=== PATIENT | male | born 1960 | race Caucasian/White ===

== ENCOUNTER 2016-09-14 09:10 | Inpatient (IN) | payer OTHER ==
[2016-09-14] MEDS ORDERED: SODIUM CHLORIDE 0.9% 1,000 ML IV STA (09:24)
[2016-09-14 09:37] LABS: Basophils # (A) 0.1 k/uL (0-0.2); Basophils % (A) 1 %; CHCM 34.5; Eosinophils # (A) 0.8 k/uL (0-0.7); Eosinophils % (A) 8 %; HCT 38.5 % (39.0-53.0); HDW 2.48; HGB 13.7 gm/dL (13.0-17.5); Luc # (Auto) 0.22; Luc % (Auto) 2; Lymphocytes # (A) 1.1 k/uL (1.0-4.8); Lymphocytes % (A) 11 %; MCH 32.1 pg (25.0-35.0); MCHC 35.6 g/dL (31.0-37.0); MCV 90.1 fL (80.0-100.0); Monocytes # (A) 0.7 k/uL (0-1.0); Monocytes % (A) 7 %; Neutrophils # (A) 7.1 k/uL (1.3-7.7); Neutrophils % (A) 71 %; RBC 4.27 m/uL (4.30-5.90); RDW 12.9 % (11.5-15.5); WBC (Perox) 9.36
--- NOTE | 2016-09-14 09:48 | ED ---
Chest Pain HPI - General Chief Complaint: Chest Pain Stated Complaint: chest pain yesterday Time Seen by Provider: 09/14/16 09:17 Source: patient, family, RN notes reviewed Mode of arrival: wheelchair Limitations: no limitations - History of Present Illness Initial Comments: This is a 55-year-old male with a benign past medical history other than a smoker who quit recently who complains of having an episode of sharp midsternal chest pain yesterday. The pain lasted about 10 minutes was associated with diaphoresis was very severe about 8/10 in severity he states it occurred while he was eating lunch. It went away and has not returned. He had no cough no fevers chills sweats nausea vomiting or other symptoms. He does have a family history of a brother and had heart disease around his age he denies any trauma or other symptoms. He was seen in outpatient clinic EKG was done he was sent here for evaluation. Patient did receive aspirin at the clinic. MD Complaint: chest pain - Related Data Home Medications Medication Instructions Recorded Confirmed Hydrochlorothiazide [Hydrodiuril] 25 mg PO DAILY 09/14/16 09/14/16 Nicotine 7Mg/24Hr Patch [Habitrol 1 patch TRANSDERM DAILY 09/14/16 09/14/16 7Mg/24Hr Patch] Allergies Allergy/AdvReac Type Severity Reaction Status Date / Time No Known Allergies Allergy Verified 09/14/16 09:30 Review of Systems ROS Statement: Those systems with pertinent positive or pertinent negative responses have been documented in the HPI. ROS Other: All systems not noted in ROS Statement are negative. EKG Findings - EKG Results: EKG: interpreted by ERMD (Sinus bradycardia rate of 57 a TX interval 174 QRS 108 QT/QTC of 428/416 sinus arrhythmia is present no acute change when compared to that done in the office.) Past Medical History Past Medical History: Hypertension History of Any Multi-Drug Resistant Organisms: None Reported Past Surgical History: Hernia Repair, Orthopedic Surgery Additional Past Surgical History / Comment(s): left ankle Past Psychological History: No Psychological Hx Reported Smoking Status: Former smoker Past Alcohol Use History: None Reported Past Drug Use History: None Reported General Exam - General Exam Comments Initial Comments: This is a well-developed well-nourished awake alert oriented 3 male Limitations: no limitations General appearance: alert, anxious Head exam: Present: atraumatic, normocephalic, normal inspection Eye exam: Present: normal appearance, PERRL, EOMI. Absent: scleral icterus, conjunctival injection, periorbital swelling ENT exam: Present: normal exam, mucous membranes moist Neck exam: Present: normal inspection. Absent: tenderness, meningismus, lymphadenopathy Respiratory exam: Present: normal lung sounds bilaterally. Absent: respiratory distress, wheezes, rales, rhonchi, stridor Cardiovascular Exam: Present: regular rate, normal rhythm, normal heart sounds. Absent: systolic murmur, diastolic murmur, rubs, gallop, clicks GI/Abdominal exam: Present: soft, normal bowel sounds. Absent: distended, tenderness, guarding, rebound, rigid Extremities exam: Present: normal inspection, full ROM, normal capillary refill. Absent: tenderness, pedal edema, joint swelling, calf tenderness Back exam: Present: normal inspection Neurological exam: Present: alert, oriented X3, CN II-XII intact Psychiatric exam: Present: normal affect, normal mood Skin exam: Present: warm, dry, intact, normal color. Absent: rash Course Vital Signs 09/14/16 09/14/16 09/14/16 09:11 10:08 11:08 Temperature 97.2 F L 97.2 F L Pulse Rate 53 L 50 L 51 L Respiratory 17 16 16 Rate Blood Pressure 139/76 131/77 110/73 O2 Sat by Pulse 98 98 96 Oximetry 09/14/16 13:07 Temperature 97.4 F L Pulse Rate 51 L Respiratory 18 Rate Blood Pressure 114/74 O2 Sat by Pulse 96 Oximetry Chest Pain MDM - MDM I did a long discussion with the patient family regarding findings initial x- ray looks suspicious for an infiltrate consistent with pneumonia altered do the d-dimer patient CAT scan emesis so evidence of a lung mass with mediastinal lymphadenopathy as well. Sindi effusion. Patient has not had any symptoms of cough phlegm production fevers chills or sweats. Patient will receive a dose of antibiotic. Patient will be admitted I did discuss case with the hospitalist. Disposition Clinical Impression: Atypical chest pain, Mass of right lung, Postobstructive pneumonia Disposition: ADMITTED IP TO THIS [facility] Condition: Stable Referrals: None,Stated [Primary Care Provider] - 1-2 days Decision Time: 11:40
[2016-09-14 09:52] LABS: ALT 23 U/L (21-72); AST 18 U/L (17-59); Alkaline Phosphatase 97 U/L (38-126); Amylase 49 U/L (30-110); Anion Gap 13 mmol/L; Blood Urea Nitrogen 25 mg/dL (9-20); Calcium 9.4 mg/dL (8.4-10.2); Carbon Dioxide 23 mmol/L (22-30); Chloride 104 mmol/L (98-107); Glucose 104 mg/dL (74-99); INR 1.1 (<1.1); Magnesium 1.9 mg/dL (1.6-2.3); Non-African American GFR(MDRD) >60 (>60 ml/min/1.73 sqM); Partial Thromboplastin Time 25.1 sec (22.0-30.0); Potassium 4.3 mmol/L (3.5-5.1); Prothrombin Time 10.7 sec (9.0-12.0); Sodium 140 mmol/L (137-145); Total Bilirubin 0.4 mg/dL (0.2-1.3); Total Protein 7.4 g/dL (6.3-8.2)
--- NOTE | 2016-09-14 09:57 | XR ---
EXAMINATION TYPE: XR chest 2V DATE OF EXAM: 09/14/2016 COMPARISON: None HISTORY: 55-year-old male with chest pain and diaphoresis TECHNIQUE: PA and lateral views FINDINGS: The cardiomediastinal silhouette, aorta, and pulmonary vasculature are within normal limits. There is consolidation within the right upper lobe marginated by the minor fissure. No pleural effusion. IMPRESSION: Right upper lobe pneumonia. Follow-up after treatment to ensure clearance.
[2016-09-14 10:14] LABS: Creatine Kinase MB 0.9 ng/mL (0.0-2.4); Troponin I 0.016 ng/mL (0.000-0.034)
[2016-09-14] MEDS ORDERED: RX INFO: IV CONTRAST WAS GIVEN 1 EACH MISC MISCELLANE PRN (10:36)
--- NOTE | 2016-09-14 11:33 | CT ---
EXAMINATION TYPE: CT angio chest DATE OF EXAM: 09/14/2016 COMPARISON: Chest x-ray same date HISTORY: Patient complains of episode of chest pain yesterday. CT DLP: 471 mGycm Automated exposure control for dose reduction was used. CONTRAST: CTA scan of the thorax is performed with IV Contrast, patient injected with 100 mL of Omnipaque 350, pulmonary embolism protocol. MIP images are created and reviewed. 3D reconstructed images are creat ed on an independent workstation and reviewed. FINDINGS: LUNGS: Extensive emphysematous changes present, postop change at the right upper lobe is greater in t he left, centrilobular emphysema is present bilaterally especially in the upper lobes. There is abnor mal increased soft tissue within the right upper lobe, suggestion of spiculated margins about the are a of consolidation, overall lesion measures approximately 9 cm in greatest AP dimension by 5.4 cm in transverse dimension extending along the major fissure and to the level of the visceral pleura and to wards the hilum. There is right hilar adenopathy, subcarinal adenopathy, mediastinal, aortopulmonary window adenopathy present. Small subpleural calcification in the left upper lobe compatible with gran uloma. No pleural effusion. AORTA: No additional significant abnormality is seen. MEDIASTINUM: There is inconsistent enhancement of the pulmonary artery and its branches. There were t echnical difficulties during the injection of contrast material. No convincing evidence of pulmonary embolism. There is pericardial effusion measuring approximately 1 cm in thickness posteriorly and in feriorly. OTHER: No adrenal mass in its visualized portions, the entire adrenal glands are not included. There is motion on the exam. There are coronary artery calcifications. 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 Pericardial ef fusion. Some limitations present. Additional findings above.
[2016-09-14] MEDS ORDERED: PNEUMONIA PROTOCOL UTILIZED 1 EACH MISC PO PRN (13:53)
[2016-09-14] MEDS: SODIUM CHLORIDE 0.9% 1,000 ML IV SCH (14:13)
[2016-09-14] MEDS ORDERED: IPRATROPIUM-ALBUTEROL 3 ML NEB INHALATION SCH (16:00)
[2016-09-14] MEDS ORDERED: AZITHROMYCIN 500 MG in SODIUM CHLORIDE 0.9% 250 ML IVPB SCH (16:00)
--- NOTE | 2016-09-14 16:33 | P.HPIM ---
History of Present Illness H&P Date: 09/14/16 Chief Complaint: Chest pain This is a 55-year-old gentleman who comes in to the hospital with acute onset of sharp chest pain in the midsternal region radiating to his back. Patient does not have any history of coronary disease in the past patient's only medical history is essentially hypertension Patient was noted to have an EKG in the emergency room it appears the patient has hypertensive disease and voltage criteria consistent with LVH Patient underwent a CT angiogram which showed a right-sided endobronchial lesion concerning for bronchogenic carcinoma Patient has lost about 20 pounds unintentionally in the recent times Patient has quit smoking about 4 months ago Patient has over [id number] smoking history No headaches blurry vision difficulty breathing cough abdominal pain and diarrhea is reported by the patient Review of Systems All systems: negative (Noted in HPI) Past Medical History Past Medical History: Hypertension, Osteoarthritis (OA) History of Any Multi-Drug Resistant Organisms: None Reported Past Surgical History: Hernia Repair, Orthopedic Surgery Additional Past Surgical History / Comment(s): left ankle plate and screws, R inguinal hernia repair. Past Anesthesia/Blood Transfusion Reactions: No Reported Reaction Smoking Status: Former smoker - Past Family History Father Family Medical History: Pneumonia Additional Family Medical History / Comment(s): Father was a WWII and had numerous injuries/surgeries from that. He at 76yrs from pneumonia Mother Family Medical History: Cancer Additional Family Medical History / Comment(s): Mother of some form of cancer when pt was 5 yrs old. Medications and Allergies Home Medications Medication Instructions Recorded Confirmed Type Hydrochlorothiazide [Hydrodiuril] 25 mg PO DAILY 09/14/16 09/14/16 History Nicotine 7Mg/24Hr Patch [Habitrol 1 patch TRANSDERM DAILY 09/14/16 09/14/16 History 7Mg/24Hr Patch] Allergies Allergy/AdvReac Type Severity Reaction Status Date / Time No Known Allergies Allergy Verified 09/14/16 09:30 Physical Exam Vitals: Vital Signs Temp Pulse Pulse Resp BP BP Pulse Ox 09/14/16 14:54 97.2 F L 55 L 18 117/70 96 09/14/16 14:07 97.9 F 50 L 18 114/74 97 09/14/16 13:07 97.4 F L 51 L 18 114/74 96 09/14/16 11:08 97.2 F L 51 L 16 110/73 96 09/14/16 10:08 50 L 16 131/77 98 09/14/16 09:11 97.2 F L 53 L 17 139/76 98 Intake and Output 09/14/16 09/14/16 09/14/16 06:59 14:59 22:59 Other: Weight 70.9 kg Patient Weight 09/15/16 06:59 Weight 70.9 kg Physical exam Gen. appearance oriented 3 in no distress Neck is supple no JVD Lungs diminished breath sounds no wheezing is appreciated hyperinflated chest Heart S1-S2 heard regular rate and rhythm no murmurs appreciated Abdomen is soft nontender no organomegaly bowel sounds are intact Neurologically cranial nerves II-12 grossly intact no focal motor or sensory deficits noted Skin no abnormalities appreciated Results CBC & Chem 7: 09/14/16 09:25 09/14/16 09:25 Labs: Abnormal Lab Results - Last 24 Hours (Table) 09/14/16 09/14/16 09/14/16 Range/Units 09:25 09:25 09:25 RBC 4.27 L (4.30-5.90) m/uL Hct 38.5 L (39.0-53.0) % Eosinophils # 0.8 H (0-0.7) k/uL D-Dimer (<0.60) mg/L FEU BUN 25 H (9-20) mg/dL Glucose 104 H (74-99) mg/dL Total Creatine Kinase 198 H (55-170) U/L 09/14/16 Range/Units 09:25 RBC (4.30-5.90) m/uL Hct (39.0-53.0) % Eosinophils # (0-0.7) k/uL D-Dimer 3.52 H (<0.60) mg/L FEU BUN (9-20) mg/dL Glucose (74-99) mg/dL Total Creatine Kinase (55-170) U/L Thrombosis Risk Factor Assmnt - Choose All That Apply Any of the Below Risk Factors Present?: Yes Each Factor Represents 1 point: Age 41-60 years Other Risk Factors: No Other congenital or acquired thrombophilia - If yes, enter type in comment: No Thrombosis Risk Factor Assessment Total Risk Factor Score: 1 Thrombosis Risk Factor Assessment Level: Low Risk Assessment and Plan Plan: Atypical chest pain #2 radiologic findings concerning for bronchogenic carcinoma #3 essential hypertension #4 long history of tobacco use #5 unintentional weight loss Plan We'll consult Dr. Smith evaluate the patient will hold the patient nothing by mouth from midnight in case a bronchoscopy with biopsy can be performed tomorrow or graft we'll discontinue the oncology consultation till biopsy and biopsy results are noted This could be done on an outpatient basis The case was discussed with the patient and his were bedside Patient is symptom-free at this time
[2016-09-14] MEDS ORDERED: IPRATROPIUM-ALBUTEROL 3 ML NEB INHALATION PRN (19:00)
[2016-09-14] MEDS: IPRATROPIUM-ALBUTEROL 3 ML NEB INHALATION SCH (20:28)
[2016-09-15] MEDS: SODIUM CHLORIDE 0.9% 1,000 ML IV SCH ×2 (00:14→12:29)
[2016-09-15 05:09] VITALS: RESP 18
[2016-09-15 06:46] LABS: INR 1.1 (<1.1); Partial Thromboplastin Time 25.7 sec (22.0-30.0)
[2016-09-15] MEDS: IPRATROPIUM-ALBUTEROL 3 ML NEB INHALATION SCH ×2 (08:27→11:22)
[2016-09-15] MEDS ORDERED: IV FLUID CONTINUATION 1,000 ML IV ONE (11:14)
[2016-09-15] MEDS ORDERED: LIDOCAINE 1% INJ 10MG/ML (20 ML MDV) ONE (11:20)
[2016-09-15] MEDS ORDERED: PROPOFOL 10 MG/ML 20 ML VIAL IV ONE (11:20)
[2016-09-15] MEDS ORDERED: LIDOCAINE 2% (PF) 20 MG/ML 10ML INHALATION ONE (11:50)
--- NOTE | 2016-09-15 12:43 | P.CNPUL ---
History of Present Illness Consult date: 09/15/16 Reason for consult: chest pain, lung mass, abnormal CXR/CT Chief complaint: Chest pain and abnormal chest x-ray and CAT scan History of present illness: Consult dated 09/15/2016 This a very pleasant 55-year-old male who doesn't really have a regular doctor. He gets hydrochlorothiazide from the clinic in [place] for his high blood pressure. Heavy smoker. Presented to the emergency department with complaints of chest pain. He was evaluated for cardiac disease was not thought to have cardiac disease and a chest x-ray and CAT scan show what appears to be a postobstructive pneumonia in the right upper lobe with significant hilar adenopathy and a bulky tumor in the right lung. Anyway, we went ahead and do bronchoscopy on him this morning. His significant mucosa irregularity in the right upper lobe. Had endobronchial biopsies brushes and washings of the right upper lobe. Hopefully we have a diagnosis. The patient may be discharged home today. Depends on his hospital. Of 90s doing reasonably well. Had no other complaints. Cough no nausea vomiting or diarrhea. Denies any shortness of breath as well. Appetite is good. Not losing any weight. No other complaints. No dysphasia. Review of Systems 12 point review of system is positive for chest pain. He denies other complaints. Past Medical History Past Medical History: Hypertension, Osteoarthritis (OA) History of Any Multi-Drug Resistant Organisms: None Reported Past Surgical History: Hernia Repair, Orthopedic Surgery Additional Past Surgical History / Comment(s): left ankle plate and screws, R inguinal hernia repair. Past Anesthesia/Blood Transfusion Reactions: No Reported Reaction Smoking Status: Former smoker - Past Family History Father Family Medical History: Pneumonia Additional Family Medical History / Comment(s): Father was a WWII and had numerous injuries/surgeries from that. He at 76yrs from pneumonia Mother Family Medical History: Cancer Additional Family Medical History / Comment(s): Mother of some form of cancer when pt was 5 yrs old. Medications and Allergies Home Medications Medication Instructions Recorded Confirmed Type Hydrochlorothiazide [Hydrodiuril] 25 mg PO DAILY 09/14/16 09/14/16 History Nicotine 7Mg/24Hr Patch [Habitrol 1 patch TRANSDERM DAILY 09/14/16 09/14/16 History 7Mg/24Hr Patch] Allergies Allergy/AdvReac Type Severity Reaction Status Date / Time No Known Allergies Allergy Verified 09/14/16 09:30 Physical Exam Osteopathic Statement: *. No significant issues noted on an osteopathic structural exam other than those noted in the History and Physical/Consult. Vitals: Vital Signs Temp Pulse Pulse Pulse Resp BP BP 09/15/16 11:30 97.1 F L 60 18 118/74 09/15/16 08:20 97.1 F L 60 16 118/74 09/15/16 04:00 96.9 F L 61 18 118/67 09/15/16 00:00 98.8 F 74 16 103/60 09/14/16 20:00 97 F L 61 18 124/70 09/14/16 14:54 97.2 F L 55 L 18 117/70 09/14/16 14:07 97.9 F 50 L 18 114/74 09/14/16 13:07 97.4 F L 51 L 18 114/74 Pulse Ox 09/15/16 11:30 95 09/15/16 08:20 95 09/15/16 04:00 96 09/15/16 00:00 94 L 09/14/16 20:00 09/14/16 14:54 96 09/14/16 14:07 97 09/14/16 13:07 96 Intake and Output 09/14/16 09/15/16 09/15/16 22:59 06:59 14:59 Intake Total 120 600 770 Balance 120 600 770 Intake: IV 650 Intake, IV Titration 600 Amount Sodium Chloride 0.9% 1, 600 000 ml @ 100 mls/hr IV . Q10H [facility] Rx#:[id number] Oral 120 120 Other: Voiding Method Toilet Toilet # Voids 2 1 2 # Bowel Movements 0 Weight 68.4 kg No acute distress, oriented 3. HEENT examination is grossly unremarkable. Mucous membranes are moist. No oral lesions. Neck supple. Full range of motion. No adenopathy thyromegaly or neck vein distention. Cardiovascular examination reveals regular rhythm rate. S1-S2 normal. No S3- S4 or murmur. Lungs reveal clear breath sounds. No wheezes or rhonchi. No crackles. Breath sounds are equal. Abdomen soft bowel sounds are heard. No masses. Extremities are intact. No cyanosis clubbing or edema. Skin without rash. Brief neurologic examination is nonfocal. Results - Laboratory Findings CBC and BMP: 09/14/16 09:25 09/14/16 09:25 PT/INR, D-dimer PT 11.0 sec (9.0-12.0) 09/15/16 05:35 INR 1.1 (<1.1) 09/15/16 05:35 D-Dimer 3.52 mg/L FEU (<0.60) H 09/14/16 09:25 Abnormal lab findings: Abnormal Labs 09/14/16 09/14/16 09/14/16 09:25 09:25 09:25 RBC 4.27 L Hct 38.5 L Eosinophils # 0.8 H D-Dimer BUN 25 H Glucose 104 H Total Creatine Kinase 198 H 09/14/16 09:25 RBC Hct Eosinophils # D-Dimer 3.52 H BUN Glucose Total Creatine Kinase - Diagnostic Findings Chest x-ray: image reviewed CT scan - chest: image reviewed (Chest x-ray CAT scan and lab work medications are all reviewed.) Assessment and Plan (1) Hypertension Status: Acute (2) Atypical chest pain Status: Acute (3) Mass of right lung Status: Acute (4) Postobstructive pneumonia Status: Acute Plan: Plan dated 09/15/2016 The patient underwent bronchoscopy today. He had mucosal irregularity and narrowing of the right upper lobe. We did endobronchial biopsies brushes and washings of the right upper lobe. Hopefully we made a diagnosis. He may be discharged home today. He will come back and see me next week in the office. Gave my one of my cards. Dr. Kay may discharge him home today. Additional recommendations suggestions are forthcoming. He may need pulmonary function testing and/or a PET scan if the bronchoscopy was nondiagnostic. Time with Patient: Greater than 30
[2016-09-15 13:13] VITALS: BP 114/51; PULSE 65; TEMP 97.5
[2016-09-15 14:24] LABS: RBC, Body Fluid 307500 /uL
--- NOTE | 2016-09-15 14:52 | XR ---
EXAMINATION TYPE: XR chest 2V DATE OF EXAM: 09/15/2016 COMPARISON: Prior CTA chest and chest x-ray yesterday HISTORY: Pneumonia progress study. TECHNIQUE: Frontal and lateral views of the chest are obtained. FINDINGS: Underlying emphysematous changes redemonstrated. There is persistent masslike consolidation inferior right upper lobe abutting fissure. There is no new focal air space opacity, pleural effusio n, or pneumothorax seen. The cardiac silhouette size is within normal limits. The osseous structur es are intact. IMPRESSION: Chronic emphysematous change with persistent right upper lobe masslike consolidation. No new infiltrate is seen. No significant change from prior studies. Suspect component of neoplasm and acute infection or pneumonia on CT review. Note is made of prominent inflammatory right axillary and anterior superior mediastinal level lymph nodes on CT review not discussed on CT report.
--- NOTE | 2016-09-15 16:27 | PCN ---
PROCEDURE PERFORMED: Bronchoscopy, air way examination, therapeutic lavage, BAL , endobronchial biopsies, right upper lobe, brushes right upper lobe, pool cytology right upper lobe. PERFORMED BY: Dr. Smith and Xiomy Vieyra. There was informed consent. There was universal time out. ( ) SUSPENDER MAKER provided IV unconscious sedation and general anesthesia. After the patient was adequately sedated and being fully monitored, the bronchoscope was inserted into the right nostril. It passed through the right nasopharynx into the oropharynx. The hypopharynx was identified. Anterior commissure, true cords, false cords, arytenoids, piriform sinuses, right and left vallecula, epiglottis all appeared normal. After topicalization, the bronchoscope was pushed through the glottic opening into the trachea. The trachea appeared normal. The tracheal reese was sharp. The left upper lobe proper and its two segments appeared normal. The lingula and its two segments also appeared normal. Likewise, the left lower lobe and its four segments were normal. On the right side after topicalization, the right middle lobe and its two segments, the right lower lobe and its five segments all appeared normal. The abnormalities were confined primarily to the entrance of the right upper lobe. The mucosa was ragged and irregular. It was a bit heaped. There was narrowing of the right upper lobe bronchus. There was narrowing all the way down to the apical posterior and anterior segments of the right upper lobe. Most of the disease was endobronchial. There was some mucosal friability and easy bleeding. Anyway we did brushes under fluoroscopic and direct visualization of the right upper lobe. Secondarily, we went ahead and did endobronchial biopsies to the right upper lobe. Finally, we had pool cytology right upper lobe. The patient tolerated the procedure well. There was some oozing. The bronchoscope was not removed until there was hemostasis. After there was adequate hemostasis, the bronchoscope was withdrawn. The patient will be recovered. No immediate complications. The patient will be sent back to his room once he is stable. The samples will be sent to the laboratory for analysis. MARGOTH
--- NOTE | 2016-09-15 16:51 | P.DS ---
Providers Date of admission: 09/14/16 13:53 Attending physician: Radha Araiza Consults: 09/14/16 13:53 Consult Physician Routine Consulting Provider: Omar Smith Consult Reason/Comments: Lung mass, postobstructive pneumonia Do you want consulting provider notified?: Yes Primary care physician: Stated None Hospital Course: This is a 55-year-old gentleman who comes in to the hospital with acute onset of sharp chest pain in the midsternal region radiating to his back. Patient does not have any history of coronary disease in the past patient's only medical history is essentially hypertension Patient was noted to have an EKG in the emergency room it appears the patient has hypertensive disease and voltage criteria consistent with LVH Patient underwent a CT angiogram which showed a right-sided endobronchial lesion concerning for bronchogenic carcinoma Patient has lost about 20 pounds unintentionally in the recent times Patient has quit smoking about 4 months ago Patient has over 81-acmt-[id number] smoking history No headaches blurry vision difficulty breathing cough abdominal pain and diarrhea is reported by the patient Physical exam Gen. appearance oriented 3 in no distress Neck is supple no JVD Lungs diminished breath sounds no wheezing is appreciated hyperinflated chest Heart S1-S2 heard regular rate and rhythm no murmurs appreciated Abdomen is soft nontender no organomegaly bowel sounds are intact Neurologically cranial nerves II-12 grossly intact no focal motor or sensory deficits noted Skin no abnormalities appreciated Plan: Atypical chest pain #2 radiologic findings concerning for bronchogenic carcinoma #3 essential hypertension #4 long history of tobacco use #5 unintentional weight loss bronchoscopy status post biopsy He is recommended to follow up with Dr. Smith on Monday and thereafter follow up with oncology for staging and treatment plans Social work has discussed with the patient regarding obtaining insurance home in a stable condition Patient Condition at Discharge: Stable Plan - Discharge Summary New Discharge Prescriptions: Continue Nicotine 7Mg/24Hr Patch [Habitrol] 1 patch TRANSDERM DAILY Hydrochlorothiazide [Hydrodiuril] 25 mg PO DAILY Discharge Medication List Hydrochlorothiazide [Hydrodiuril] 25 mg PO DAILY 09/14/16 [History] Nicotine 7Mg/24Hr Patch [Habitrol] 1 patch TRANSDERM DAILY 09/14/16 [History] Follow up Appointment(s)/Referral(s): Omar Smith DO [Doctor of Osteopathic Medicine] - 07/19/17 10:45 am None,Stated [Primary Care Provider] - 1-2 days Patient Instructions/Handouts: *Surgery [facility] - Bronchoscopy Discharge Instructions, Pneumonia (DC) Discharge Disposition: HOME SELF-CARE
== END 2016-09-15 14:54 | disposition home or self-care (01) | DRG 166 ==
LOC: EC 09:10 → 6SEL 13:53
PROVIDERS: ADMIT Internal Medicine; ATTEND Internal Medicine
PROC: 0B9C8ZX Drainage of Right Upper Lung Lobe, Via Natural or Artificial Opening Endoscopic, Diagnostic (ICD-10-PCS; principal; 2016-09-15 11:20)
PROC: 0BBC8ZX Excision of Right Upper Lung Lobe, Via Natural or Artificial Opening Endoscopic, Diagnostic (ICD-10-PCS; 2016-09-15 11:20)
DX: C34.11 Malignant neoplasm of upper lobe, right bronchus or lung (principal); J18.9 Pneumonia, unspecified organism; I11.9 Hypertensive heart disease without heart failure; R63.4 Abnormal weight loss; R07.89 Other chest pain; M19.90 Unspecified osteoarthritis, unspecified site; F12.90 Cannabis use, unspecified, uncomplicated; Z79.899 Other long term (current) drug therapy; Z87.891 Personal history of nicotine dependence; Z80.9 Family history of malignant neoplasm, unspecified
CPT/HCPCS: 31623; 31624; 31628; 36415; 71020; 71275; 80053; 82150; 82550; 82553; 83690; 83735; 83880; 84484; 85025; 85379; 85610; 85730; 87040; 87070; 87102; 87116; 87205; 87206; 87252; 87496; 87498; 87502; 87529; 87798; 88104; 88108; 88305; 88341; 88342; 89050; 93005; 99285

== ENCOUNTER → 2016-09-24 | Outpatient (CLI) | payer OTHER ==
--- NOTE | 2016-09-26 08:49 | PE ---
EXAMINATION TYPE: PET CT fusion skull to thigh DATE OF EXAM: 09/24/2016 COMPARISON: NONE HISTORY: Lung cancer initial staging study. Right lung Biopsy performed September 15. TECHNIQUE: Following the intravenous administration of 15.07 mCi of F-18 FDG, whole body images are performed from the skull base to the midthigh. Images are reviewed on the computer in the coronal, a xial, and sagittal planes. Reconstructed rotating images are created on independent workstation and reviewed on the computer. A localization and attenuation correction CT is performed in conjunction with the PET scan. SCAN: CTA chest from 10 days ago. FINDINGS: SKULL BASE AND NECK: There are abnormal bilateral supraclavicular lymph nodes, for reference left-si ded lymph node at level of hyoid bone measures 1.8 x 1.2 cm with adjacent abnormal lymph node, max SOLORZANO V is 5.08 on axial image 38. For reference there is right posterior cervical triangle lymph node susie uring 1.5 x 1.0 cm on axial image 26 with max SUV of 4.73. CHEST, MEDIASTINUM, AND HILAR REGION: There is abnormal uptake in masslike consolidation measuring roughly 5.0 x 3.6 cm on axial image 87 w ith max SUV of 13.14. Surrounding atelectatic change is seen along posterior peripheral margin. There are abnormal lymph nodes in the right hilum, subcarinal level, right paratracheal level, AP win kenzie, and prevascular space. For reference subcarinal lymph node measures 2.7 x 1.5 cm on axial image 94 with max SUV of 8.48. There are small to moderate-sized suspicious pericardial effusion without definitive abnormal hyperme tabolic uptake, area of increased uptake is felt to correspond to left ventricular wall. There are suspicious lymph nodes in bilateral axilla, for reference right axillary lymph node measure s 1.0 x 0.9 cm on axial image 70 with max SUV of 3.21. ABDOMEN AND PELVIS: There is abnormal hypermetabolic mass in region of pancreatic head which is parti ally calcified possible peritoneal metastatic deposit or lymph node, primary pancreatic lesion is not excluded, this measures roughly 2.7 x 2.6 cm on axial image 164 with max SUV of 9.03. I favor abnorm al lymph node. OSSEOUS STRUCTURES: There is suspicious abnormal hypermetabolic uptake in posterior left rib lesion n ear axial image 86, max SUV is 6.28 possible area of healing fracture as no definitive additional hy permetabolic or osseous lesions are clearly seen. OTHER CT: There is mild to moderate calcified plaque in bilateral carotid bulbs. There is advanced emphysematous change with bulla and blebs in both apices. There is small right-side d pleural effusion without abnormal hypermetabolic uptake. Coronary artery calcification is present which is noted marker for coronary artery disease. Pelvic phleboliths are seen. There is prominent fecal material in the rectum. There is moderate calcified plaque of the abdominal aorta extending into branch vessels with slight e ctasia, no greater than the 3 cm aneurysmal change is seen. There is multilevel spurring in the spine . There is facet arthropathy lower lumbar levels. IMPRESSION: Metastatic lung carcinoma is confirmed as detailed above. TNM STAGING T2,N3,M1 AJCC STAGING IV
== END | disposition home or self-care (01) ==
LOC: RADPETMAIN 07:47
PROVIDERS: ATTEND Internal Medicine Critical Care Medicine
DX: C34.90 Malignant neoplasm of unspecified part of unspecified bronchus or lung (principal)
CPT/HCPCS: 78815; A9552

== ENCOUNTER 2016-09-27 21:15 | Emergency (ER) | payer OTHER ==
[2016-09-27] MEDS ORDERED: ALBUTEROL NEBULIZED 2.5 MG/3 ML INHALATION STA ×2 (21:44→22:06)
[2016-09-27 21:52] LABS: Basophils # (A) 0.1 k/uL (0-0.2); Basophils % (A) 1 %; CH 31.5; CHCM 34.1; Eosinophils # (A) 0.7 k/uL (0-0.7); Eosinophils % (A) 6 %; HCT 36.9 % (39.0-53.0); HDW 2.35; HGB 12.6 gm/dL (13.0-17.5); Luc # (Auto) 0.26; Luc % (Auto) 2; Lymphocytes # (A) 1.3 k/uL (1.0-4.8); Lymphocytes % (A) 11 %; MCH 31.8 pg (25.0-35.0); MCHC 34.2 g/dL (31.0-37.0); Mean Platelet Volume 7.7; Monocytes % (A) 9 %; Neutrophils # (A) 7.9 k/uL (1.3-7.7); Neutrophils % (A) 71 %; RBC 3.97 m/uL (4.30-5.90); RDW 13.2 % (11.5-15.5); WBC 11.2 k/uL (3.8-10.6); WBC (Perox) 11.27
[2016-09-27 22:00] LABS: INR 1.1 (<1.2); Partial Thromboplastin Time 23.1 sec (22.0-30.0); Prothrombin Time 10.8 sec (9.0-12.0)
[2016-09-27 22:02] LABS: ALT 27 U/L (21-72); AST 18 U/L (17-59); Alkaline Phosphatase 96 U/L (38-126); Anion Gap 9 mmol/L; Blood Urea Nitrogen 27 mg/dL (9-20); Calcium 9.1 mg/dL (8.4-10.2); Carbon Dioxide 25 mmol/L (22-30); Chloride 104 mmol/L (98-107); Glucose 94 mg/dL (74-99); Magnesium 1.9 mg/dL (1.6-2.3); Non-African American GFR(MDRD) >60 (>60 ml/min/1.73 sqM); Potassium 4.2 mmol/L (3.5-5.1); Sodium 138 mmol/L (137-145); Total Bilirubin 0.3 mg/dL (0.2-1.3); Total Protein 6.8 g/dL (6.3-8.2)
[2016-09-27] MEDS ORDERED: ALBUTEROL NEB (CONC) 2.5 MG/0.5 ML INHALATION ONE (22:15)
[2016-09-27 22:26] LABS: Troponin I 0.074 ng/mL (0.000-0.034)
[2016-09-27 22:41] LABS: VBG PH 7.46 (7.31-7.41)
[2016-09-27 23:10] VITALS: RESP 22; TEMP 99
--- NOTE | 2016-09-27 23:58 | ED ---
General Adult HPI - General Chief complaint: Shortness of Breath Stated complaint: MONTY Time Seen by Provider: 09/27/16 21:53 Source: patient, family, RN notes reviewed Mode of arrival: ambulatory Limitations: no limitations - History of Present Illness Initial comments: 55-year-old male presents with a three-day history of worsening cough and difficulty breathing. Patient also complains of some right-sided chest pain. Patient was evaluated approximately 2 weeks ago with concern for post- instructive pneumonia, and evaluated for lung mass. In the interval time he received an echo and PET scan. Patient and his family believe that the ultrasound of his heart showed a pericardial effusion. There are unaware of the results of the PET scan or the formal diagnosis. Patient has past medical history of hypertension, long-standing tobacco user who recently quit. Denies fever or chills. Denies productive cough. Denies nausea vomiting or diarrhea - Related Data Home Medications Medication Instructions Recorded Confirmed Hydrochlorothiazide [Hydrodiuril] 25 mg PO DAILY 09/14/16 09/27/16 Allergies Allergy/AdvReac Type Severity Reaction Status Date / Time No Known Allergies Allergy Verified 09/27/16 21:26 Review of Systems ROS Statement: Those systems with pertinent positive or pertinent negative responses have been documented in the HPI. ROS Other: All systems not noted in ROS Statement are negative. Respiratory: Reports: cough, dyspnea Cardiovascular: Reports: chest pain Past Medical History Past Medical History: Cancer, Hypertension, Osteoarthritis (OA) Additional Past Medical History / Comment(s): non small cell lung cancer, right upper lobe. History of Any Multi-Drug Resistant Organisms: None Reported Past Surgical History: Hernia Repair, Orthopedic Surgery Additional Past Surgical History / Comment(s): left ankle plate and screws, R inguinal hernia repair. Past Anesthesia/Blood Transfusion Reactions: No Reported Reaction Past Psychological History: No Psychological Hx Reported Smoking Status: Former smoker Past Alcohol Use History: None Reported Past Drug Use History: Marijuana - Past Family History Father Family Medical History: Pneumonia Additional Family Medical History / Comment(s): Father was a WWII and had numerous injuries/surgeries from that. He at 76yrs from pneumonia Mother Family Medical History: Cancer Additional Family Medical History / Comment(s): Mother of some form of cancer when pt was 5 yrs old. General Exam Limitations: no limitations General appearance: alert, in no apparent distress Head exam: Present: atraumatic, normocephalic Eye exam: Present: normal appearance, PERRL ENT exam: Present: normal exam, mucous membranes moist Neck exam: Present: normal inspection, other (No JVD) Respiratory exam: Present: wheezes. Absent: respiratory distress Cardiovascular Exam: Present: regular rate, normal rhythm, other (Faint heart sounds). Absent: JVD GI/Abdominal exam: Present: soft. Absent: distended, tenderness, guarding Extremities exam: Present: normal inspection, normal capillary refill. Absent: pedal edema, calf tenderness Neurological exam: Present: alert, oriented X3. Absent: motor sensory deficit Psychiatric exam: Present: normal affect, normal mood Skin exam: Present: warm, dry Course Vital Signs 09/27/16 09/27/16 09/27/16 21:19 21:29 22:17 Temperature 100.0 F H Pulse Rate 68 58 L Respiratory 26 H 18 Rate Blood Pressure 127/68 O2 Sat by Pulse 97 Oximetry 09/27/16 09/27/16 09/27/16 22:31 23:07 23:08 Temperature 99.0 F Pulse Rate 60 65 67 Respiratory 22 Rate Blood Pressure 128/70 113/54 O2 Sat by Pulse 98 98 Oximetry - Reevaluation(s) Reevaluation #1: 09/27/16 23:51 Reevaluation the patient is feeling better after nebulized albuterol. EKG Findings - EKG Comments: EKG Findings:: EKG shows normal sinus rhythm, ventricular rate of 62, MA interval 166 QRS duration 104, QTC is [address] segment elevation or depression , no T-wave abnormality Medical Decision Making - Medical Decision Making 55-year-old with significant tobacco history and recent diagnosis of metastatic lung cancer presenting with 3 days of worsening shortness of breath. Patient is accompanied by family member, they are unaware of the complete diagnosis at this time. The patient has had a PET scan and an ultrasound of his heart in the last several days. Echo is reviewed, does show moderate to large pericardial effusion, with no tamponade physiology. I did review the PET scan results which showed widespread disease including uptake in the left ventricle wall. This does explain the patient's elevated troponin. In the setting of right sided chest pain over the patient's lesion and a nonischemic EKG this will not be pursued. Patient's x-ray redemonstrates right upper lobe lesion. Patient's vital signs remained stable in the emergency department. He feels better after nebulized albuterol. Patient has an appointment with his oncologist tomorrow at 7 AM. This be the first appointment. I discussed the test results and presentation with on-call oncology and they agree with discharge for close outpatient follow-up. Patient and his family member are agreeable with discharge. Diagnosis: Shortness of breath, chest pain related to lung cancer. - Lab Data Result diagrams: 09/27/16 21:34 09/27/16 21:34 Lab Results 09/27/16 09/27/16 09/27/16 Range/Units 21:34 21:34 21:34 WBC 11.2 H (3.8-10.6) k/uL RBC 3.97 L (4.30-5.90) m/uL Hgb 12.6 L (13.0-17.5) gm/dL Hct 36.9 L (39.0-53.0) % MCV 93.0 (80.0-100.0) fL MCH 31.8 (25.0-35.0) pg MCHC 34.2 (31.0-37.0) g/dL RDW 13.2 (11.5-15.5) % Plt Count 225 (150-450) k/uL Neutrophils % 71 % Lymphocytes % 11 % Monocytes % 9 % Eosinophils % 6 % Basophils % 1 % Neutrophils # 7.9 H (1.3-7.7) k/uL Lymphocytes # 1.3 (1.0-4.8) k/uL Monocytes # 1.0 (0-1.0) k/uL Eosinophils # 0.7 (0-0.7) k/uL Basophils # 0.1 (0-0.2) k/uL PT (9.0-12.0) sec INR (<1.2) APTT (22.0-30.0) sec VBG pH (7.31-7.41) VBG pCO2 (37-51) mmHg VBG HCO3 (24-28) mmol/L Sodium 138 (137-145) mmol/L Potassium 4.2 (3.5-5.1) mmol/L Chloride 104 (98-107) mmol/L Carbon Dioxide 25 (22-30) mmol/L Anion Gap 9 mmol/L BUN 27 H (9-20) mg/dL Creatinine 1.02 (0.66-1.25) mg/dL Est GFR (MDRD) Af Amer >60 (>60 ml/min/1.73 sqM) Est GFR (MDRD) Non-Af >60 (>60 ml/min/1.73 sqM) Glucose 94 (74-99) mg/dL Calcium 9.1 (8.4-10.2) mg/dL Magnesium 1.9 (1.6-2.3) mg/dL Total Bilirubin 0.3 (0.2-1.3) mg/dL AST 18 (17-59) U/L ALT 27 (21-72) U/L Alkaline Phosphatase 96 (38-126) U/L Total Creatine Kinase 83 (55-170) U/L CK-MB (CK-2) 1.0 (0.0-2.4) ng/mL CK-MB (CK-2) Rel Index 1.2 Troponin I 0.074 H* (0.000-0.034) ng/mL NT-Pro-B Natriuret Pep pg/mL Total Protein 6.8 (6.3-8.2) g/dL Albumin 3.9 (3.5-5.0) g/dL 09/27/16 09/27/16 09/27/16 Range/Units 21:34 21:34 22:33 WBC (3.8-10.6) k/uL RBC (4.30-5.90) m/uL Hgb (13.0-17.5) gm/dL Hct (39.0-53.0) % MCV (80.0-100.0) fL MCH (25.0-35.0) pg MCHC (31.0-37.0) g/dL RDW (11.5-15.5) % Plt Count (150-450) k/uL Neutrophils % % Lymphocytes % % Monocytes % % Eosinophils % % Basophils % % Neutrophils # (1.3-7.7) k/uL Lymphocytes # (1.0-4.8) k/uL Monocytes # (0-1.0) k/uL Eosinophils # (0-0.7) k/uL Basophils # (0-0.2) k/uL PT 10.8 (9.0-12.0) sec INR 1.1 (<1.2) APTT 23.1 (22.0-30.0) sec VBG pH 7.46 H (7.31-7.41) VBG pCO2 33 L (37-51) mmHg VBG HCO3 23 L (24-28) mmol/L Sodium (137-145) mmol/L Potassium (3.5-5.1) mmol/L Chloride (98-107) mmol/L Carbon Dioxide (22-30) mmol/L Anion Gap mmol/L BUN (9-20) mg/dL Creatinine (0.66-1.25) mg/dL Est GFR (MDRD) Af Amer (>60 ml/min/1.73 sqM) Est GFR (MDRD) Non-Af (>60 ml/min/1.73 sqM) Glucose (74-99) mg/dL Calcium (8.4-10.2) mg/dL Magnesium (1.6-2.3) mg/dL Total Bilirubin (0.2-1.3) mg/dL AST (17-59) U/L ALT (21-72) U/L Alkaline Phosphatase (38-126) U/L Total Creatine Kinase (55-170) U/L CK-MB (CK-2) (0.0-2.4) ng/mL CK-MB (CK-2) Rel Index Troponin I (0.000-0.034) ng/mL NT-Pro-B Natriuret Pep 206 pg/mL Total Protein (6.3-8.2) g/dL Albumin (3.5-5.0) g/dL Disposition Clinical Impression: Lung mass, Atypical chest pain Disposition: HOME SELF-CARE Condition: Good Instructions: Dyspnea (ED) Referrals: Omar Smith DO [Primary Care Provider] - 1-2 days Bennett Lee MD [STAFF PHYSICIAN] - 1-2 days Time of Disposition: 00:00
--- NOTE | 2016-09-28 00:04 | XR ---
EXAM: XR Chest, 2 Views CLINICAL HISTORY: Difficulty breathing. TECHNIQUE: Frontal and lateral views of the chest. COMPARISON: Chest radiograph dated 09/15/16. FINDINGS: Lungs: Again seen is a dense opacity at the right upper lobe, measuring approximately 9 cm TV by 5.5 cm AP by 3 cm SI. The lungs are otherwise well-expanded to hyperinflated. Pleural space: No significant pleural effusion. No pneumothorax. Heart: Normal cardiac silhouette. Mediastinum: Unremarkable. Bones/joints: Chronic left clavicular deformity. IMPRESSION: No significant interval change.
[2016-09-28 00:40] VITALS: BP 111/59; PULSE 59
== END 2016-09-28 00:48 | disposition home or self-care (01) ==
LOC: EC 21:15
DX: R07.89 Other chest pain (principal); R91.8 Other nonspecific abnormal finding of lung field; R06.02 Shortness of breath; R05 Cough; I10 Essential (primary) hypertension; Z85.118 Personal history of other malignant neoplasm of bronchus and lung; Z87.891 Personal history of nicotine dependence; Z79.899 Other long term (current) drug therapy
CPT/HCPCS: 36415; 71020; 80053; 82550; 82553; 82803; 83735; 83880; 84484; 85025; 85610; 85730; 93005; 94640; 99285

== ENCOUNTER → 2016-09-27 | Outpatient (CLI) | payer SELFPAY ==
--- NOTE | 2016-09-27 09:27 | ECHOF ---
Referral Reason:I25.11 cororany artery dis MEASUREMENTS -------- HEIGHT: 182.9 cm WEIGHT: 72.6 kg BP: 121/60 IVSd: 0.9 cm (0.6 - 1.1) LVIDd: 5.0 cm (3.9 - 5.3) LVPWd: 1.3 cm (0.6 - 1.1) IVSs: 1.5 cm LVIDs: 3.0 cm LVPWs: 1.7 cm LAESV Index (A-L): 29.45 ml/m Ao Diam: 3.7 cm (2.0 - 3.7) AV Cusp: 2.5 cm (1.5 - 2.6) LA Diam: 2.5 cm (2.7 - 3.8) MV EXCURSION: 29.154 mm (> 18.000) MV EF SLOPE: 106 mm/s (70 - 150) EPSS: 0.3 cm MV E Elbert: 0.94 m/s MV DecT: 297 ms MV A Elbert: 0.91 m/s MV E/A Ratio: 1.04 RAP: 5.00 mmHg RVSP: 33.[address] Xiomy Vieyra on 09/27/16 at 9:30 am. FINDINGS -------- Sinus rhythm. This was a technically good study. Left ventricular wall thickness is normal. Overall left ventricular systolic function is low-normal with, an EF between 50 - 55 %. The right ventricle is normal in size and function. LA is midly dilated 29-33ml/m2. The right atrium is normal in size. Aortic valve is trileaflet and is mildly thickened. The mitral valve leaflets are mildly thickened. Mild mitral annular calcification present. [id number] mitral regurgitation is present. There is moderate mitral valve prolapse. Mild tricuspid regurgitation present. The right ventricular systolic pressure, as measured by Doppler, is 33.83mmHg. Pulmonic valve appears structurally normal. The aortic root size is normal. There is no evidence of cardiac tamponade. Moderate-Large global pericardial effusion Contacted Dr. Xiomy Vieyra on 09/27/16 at 0930 CONCLUSIONS -------- 1. Sinus rhythm. 2. Mild mitral annular calcification present. 3. [id number] mitral regurgitation is present. 4. There is moderate mitral valve prolapse. 5. Mild tricuspid regurgitation present. 6. The right ventricular systolic pressure, as measured by Doppler, is 33.83mmHg. 7. Pulmonic valve appears structurally normal. 8. The aortic root size is normal. 9. There is no evidence of cardiac tamponade. 10. Moderate-Large global pericardial effusion 11. Contacted Dr. Xiomy Vieyra on 09/27/16 at 0930 12. This was a technically good study. 13. Left ventricular wall thickness is normal. 14. Overall left ventricular systolic function is low-normal with, an EF between 50 - 55 %. 15. The right ventricle is normal in size and function. 16. LA is midly dilated 29-33ml/m2. 17. The right atrium is normal in size. 18. Aortic valve is trileaflet and is mildly thickened. 19. The mitral valve leaflets are mildly thickened. BIT TAPPER: Romy Long RDCS
== END | disposition home or self-care (01) ==
LOC: RADECHMAIN 08:26
PROVIDERS: ATTEND Internal Medicine Critical Care Medicine
DX: I08.1 Rheumatic disorders of both mitral and tricuspid valves (principal); I31.3 Pericardial effusion (noninflammatory); I25.10 Atherosclerotic heart disease of native coronary artery without angina pectoris
CPT/HCPCS: 93306

== ENCOUNTER → 2016-09-28 | Outpatient (CLI) | payer SELFPAY ==
--- NOTE | 2016-09-28 13:17 | MR ---
"PRE AND POSTCONTRAST ENHANCED MRI OF THE BRAIN: CLINICAL HISTORY: Lung carcinoma with headaches CONTRAST: 15 ML Multihance Between 8 and 10 rim-enhancing lesions left cerebral hemisphere with a dominant mass within the high left frontal lobe which measures 2.9 x 2.3 cm. There is a large area of surrounding vasogenic edema. Mild mass effect is noted upon the left lateral ventricle. There is minimal midline shift from left-t o-right of approximately 3 mm. No evidence for subfalcine herniation at this time. Additional smaller lesions identified within the left frontal left parietal and left temporal regions all measure less than 8 mm. Approximately 3 rim-enhancing lesions are seen within the right cerebral hemisphere measur ing less than 5 mm. Lesions are within the right temporal and right frontal lobe. Several of the smal ler lesions demonstrate mild amount of surrounding vasogenic edema. No evidence for hemorrhagic transformation. No evidence for extra-axial collection. No evidence for acute edema The paranasal sinuses and mastoid air cells are well-aerated. IMPRESSION: 1. Multiple bilateral left much greater than right rim-enhancing lesions with a dominant lesion withi n the high left frontal lobe. There is a large area of surrounding vasogenic edema as well as mass ef fect upon the left lateral ventricle. Mild midline shift from left to right of 3 mm without evidence for subfalcine herniation. A Red message has been communicated to Bennett Lee MD via the [employer] | Critical Result sy stem on 09/28/2016 1:15 PM, Message ID [id number]."
== END | disposition home or self-care (01) ==
LOC: RADMRIMAIN 12:06
PROVIDERS: ATTEND Internal Medicine Hematology & Oncology
DX: G93.6 Cerebral edema (principal); G93.89 Other specified disorders of brain; C34.90 Malignant neoplasm of unspecified part of unspecified bronchus or lung; R41.0 Disorientation, unspecified
CPT/HCPCS: 70553; A9577

== ENCOUNTER 2016-10-14 09:54 | Inpatient (IN) | payer OTHER ==
[2016-10-14] MEDS ORDERED: SODIUM CHLORIDE 0.9% 500 ML IV STA (10:07)
[2016-10-14] MEDS ORDERED: DILTIAZEM 5 MG/ML 5 ML VIAL IVP STA (10:07)
[2016-10-14] MEDS ORDERED: SODIUM CHLORIDE 0.9% 1,000 ML IV STA (10:07)
[2016-10-14] MEDS ORDERED: DILTIAZEM 125 MG in SODIUM CHLORIDE 0.9% 100 ML IV ONE (10:07)
[2016-10-14 10:23] LABS: Basophils % (A) 0 %; CH 30.7; CHCM 33.5; Eosinophils # (A) 0.4 k/uL (0-0.7); Eosinophils % (A) 2 %; HCT 37.2 % (39.0-53.0); HDW 2.28; HGB 12.7 gm/dL (13.0-17.5); Luc % (Auto) 1; Lymphocytes # (A) 0.6 k/uL (1.0-4.8); Lymphocytes % (A) 3 %; MCH 31.4 pg (25.0-35.0); MCHC 34.2 g/dL (31.0-37.0); Mean Platelet Volume 7.6; Monocytes # (A) 0.5 k/uL (0-1.0); Monocytes % (A) 3 %; Neutrophils # (A) 18.7 k/uL (1.3-7.7); Neutrophils % (A) 92 %; RBC 4.05 m/uL (4.30-5.90); RDW 14.2 % (11.5-15.5); WBC 20.2 k/uL (3.8-10.6); WBC (Perox) 20.41
[2016-10-14 10:42] LABS: INR 1.2 (<1.2); Partial Thromboplastin Time 23.3 sec (22.0-30.0); Prothrombin Time 11.9 sec (9.0-12.0)
[2016-10-14 10:48] LABS: ALT 223 U/L (21-72); AST 151 U/L (17-59); Alkaline Phosphatase 102 U/L (38-126); Anion Gap 9 mmol/L; Blood Urea Nitrogen 37 mg/dL (9-20); Calcium 8.6 mg/dL (8.4-10.2); Carbon Dioxide 26 mmol/L (22-30); Chloride 101 mmol/L (98-107); Glucose 118 mg/dL (74-99); Magnesium 1.9 mg/dL (1.6-2.3); Non-African American GFR(MDRD) >60 (>60 ml/min/1.73 sqM); Phosphorous 3.3 mg/dL (2.5-4.5); Potassium 3.9 mmol/L (3.5-5.1); Sodium 136 mmol/L (137-145); Total Bilirubin 0.4 mg/dL (0.2-1.3); Total Protein 5.9 g/dL (6.3-8.2)
--- NOTE | 2016-10-14 10:57 | XR ---
EXAMINATION TYPE: XR chest 2V DATE OF EXAM: 10/14/2016 COMPARISON: Chest x-ray September 27, 2016. PET CT September 24, 2016. HISTORY: History of lung cancer presents with chest pain today. TECHNIQUE: Frontal and lateral views of the chest are obtained. FINDINGS: There is underlying emphysematous change redemonstrated seen better on recent PET/CT in th e lung apices. There is persistent masslike consolidation right suprahilar level corresponds to neopl asm and associated atelectasis and/or infiltrate. There is no new focal airspace opacity or pneumotho rax seen bilaterally. There is persistent tiny right pleural effusion and possible tiny new left pleu ral effusion. Chronic thickening of right paratracheal stripe corresponds to adenopathy on PET/CT. Th e cardiac silhouette size is mildly enlarged with coarse correlates with small to moderate-sized merlyn cardial effusion on PET/CT. From right-sided volume loss with tracheal shift is redemonstrated. Old f racture deformity mid left clavicle is redemonstrated. IMPRESSION: Chronic changes as detailed above without suspicious new acute pulmonary process identif ied
[2016-10-14 11:05] LABS: Creatine Kinase MB 4.7 ng/mL (0.0-2.4); Troponin I 0.293 ng/mL (0.000-0.034)
--- NOTE | 2016-10-14 11:05 | ED ---
General Adult HPI - General Chief complaint: Chest Pain Stated complaint: Chest Pain Time Seen by Provider: 10/14/16 10:06 Source: patient, RN notes reviewed, old records reviewed Mode of arrival: ambulatory Limitations: no limitations - History of Present Illness Initial comments: This is a 55-year-old male to the ER for evaluation. This patient presents today for evaluation regarding weakness, dizziness, left-sided chest pain. Patient's complex medical history including cancer and undergoing radiation for metastasis, patient has right-sided lung cancer. Patient was admitted shortness of breath. He does watch for fevers states he has not known her noticed that he has a fever was low diaphoretic earlier today. Near syncopal. Patient is also complaining of chest pain. No nausea vomiting. No recent travel history. No recent change in medications - Related Data Home Medications Medication Instructions Recorded Confirmed Hydrochlorothiazide [Hydrodiuril] 25 mg PO DAILY 09/14/16 10/14/16 ALPRAZolam [Xanax] 0.25 mg PO BID 10/14/16 10/14/16 Albuterol Inhaler [Ventolin Hfa 2 puff PO Q4H PRN 10/14/16 10/14/16 Inhaler] Dexamethasone [Hexadrol] 4 mg PO TID 10/14/16 10/14/16 Omeprazole [PriLOSEC] 20 mg PO DAILY 10/14/16 10/14/16 Allergies Allergy/AdvReac Type Severity Reaction Status Date / Time No Known Allergies Allergy Verified 10/14/16 10:48 Review of Systems ROS Statement: Those systems with pertinent positive or pertinent negative responses have been documented in the HPI. ROS Other: All systems not noted in ROS Statement are negative. Past Medical History Past Medical History: Cancer, Hypertension, Osteoarthritis (OA) Additional Past Medical History / Comment(s): non small cell lung cancer, right upper lobe. History of Any Multi-Drug Resistant Organisms: None Reported Past Surgical History: Hernia Repair, Orthopedic Surgery Additional Past Surgical History / Comment(s): left ankle plate and screws, R inguinal hernia repair. Past Anesthesia/Blood Transfusion Reactions: No Reported Reaction Past Psychological History: No Psychological Hx Reported Smoking Status: Former smoker Past Alcohol Use History: None Reported Past Drug Use History: Marijuana - Past Family History Father Family Medical History: Pneumonia Additional Family Medical History / Comment(s): Father was a [employer] and had numerous injuries/surgeries from that. He at 76yrs from pneumonia Mother Family Medical History: Cancer Additional Family Medical History / Comment(s): Mother of some form of cancer when pt was 5 yrs old. General Exam Limitations: no limitations General appearance: alert, in no apparent distress, anxious Head exam: Present: atraumatic, normocephalic, normal inspection Eye exam: Present: normal appearance, PERRL, EOMI. Absent: scleral icterus, conjunctival injection, periorbital swelling ENT exam: Present: normal exam, mucous membranes moist Neck exam: Present: normal inspection. Absent: tenderness, meningismus, lymphadenopathy Respiratory exam: Present: normal lung sounds bilaterally. Absent: respiratory distress, wheezes, rales, rhonchi, stridor Cardiovascular Exam: Present: tachycardia, irregular rhythm, normal heart sounds. Absent: systolic murmur, diastolic murmur, rubs, gallop, clicks GI/Abdominal exam: Present: soft, normal bowel sounds. Absent: distended, tenderness, guarding, rebound, rigid Extremities exam: Present: normal inspection, full ROM, normal capillary refill. Absent: tenderness, pedal edema, joint swelling, calf tenderness Back exam: Present: normal inspection Neurological exam: Present: alert, oriented X3, CN II-XII intact Psychiatric exam: Present: normal affect, normal mood Skin exam: Present: warm, dry, intact, normal color. Absent: rash Course Vital Signs 10/14/16 10/14/16 10/14/16 10:03 10:38 11:09 Pulse Rate 113 H 98 114 H Respiratory 18 Rate Blood Pressure 166/87 126/71 110/73 O2 Sat by Pulse 97 96 94 L Oximetry 10/14/16 10/14/16 10/14/16 11:38 12:35 13:56 Pulse Rate 114 H 42 L 44 L Respiratory 18 Rate Blood Pressure 126/72 100/66 116/76 O2 Sat by Pulse 96 93 L 97 Oximetry - Reevaluation(s) Reevaluation #1: 10/14/16 12:21 Patient's medical record is reviewed, no prior history of A. fib Reevaluation #2: 10/14/16 12:22 Patient's chest pain is improving, heart rate is improving Reevaluation #3: 10/14/16 14:26 Patient Chuck converted to sinus bradycardia, remains bradycardic throughout rest of emergency department stay, blood pressure maintaining awake and alert with normal mental state EKG Findings - EKG Comments: EKG Findings:: EKG shows A. fib with RVR rate 133, QRS 102, QTC 470. Repeat EKG. EKG shows sinus bradycardia rate 40, WI 1:30, QRS 90, QTC 378 Medical Decision Making - Medical Decision Making 55 year with new-onset A. fib with RVR, patient will be admitted for cardiology evaluation, treatment, anticoagulation, rate control. Chest x-ray negative, CTA shows positive PE, positive pericardial effusion worsening, from before. Again at this time patient's blood pressure is normal, remained bradycardic - Lab Data Result diagrams: 10/14/16 10:09 10/14/16 10:09 Lab Results 10/14/16 10/14/16 10/14/16 Range/Units 10:09 10:09 10:09 WBC 20.2 H (3.8-10.6) k/uL RBC 4.05 L (4.30-5.90) m/uL Hgb 12.7 L (13.0-17.5) gm/dL Hct 37.2 L (39.0-53.0) % MCV 92.0 (80.0-100.0) fL MCH 31.4 (25.0-35.0) pg MCHC 34.2 (31.0-37.0) g/dL RDW 14.2 (11.5-15.5) % Plt Count 100 L D (150-450) k/uL Neutrophils % 92 % Lymphocytes % 3 % Monocytes % 3 % Eosinophils % 2 % Basophils % 0 % Neutrophils # 18.7 H (1.3-7.7) k/uL Lymphocytes # 0.6 L (1.0-4.8) k/uL Monocytes # 0.5 (0-1.0) k/uL Eosinophils # 0.4 (0-0.7) k/uL Basophils # 0.0 (0-0.2) k/uL PT (9.0-12.0) sec INR (<1.2) APTT (22.0-30.0) sec D-Dimer (<0.60) mg/L FEU Sodium 136 L (137-145) mmol/L Potassium 3.9 (3.5-5.1) mmol/L Chloride 101 (98-107) mmol/L Carbon Dioxide 26 (22-30) mmol/L Anion Gap 9 mmol/L BUN 37 H (9-20) mg/dL Creatinine 0.80 (0.66-1.25) mg/dL Est GFR (MDRD) Af Amer >60 (>60 ml/min/1.73 sqM) Est GFR (MDRD) Non-Af >60 (>60 ml/min/1.73 sqM) Glucose 118 H (74-99) mg/dL Calcium 8.6 (8.4-10.2) mg/dL Phosphorus 3.3 (2.5-4.5) mg/dL Magnesium 1.9 (1.6-2.3) mg/dL Total Bilirubin 0.4 (0.2-1.3) mg/dL AST 151 H (17-59) U/L ALT 223 H (21-72) U/L Alkaline Phosphatase 102 (38-126) U/L Total Creatine Kinase 123 (55-170) U/L CK-MB (CK-2) 4.7 H* (0.0-2.4) ng/mL CK-MB (CK-2) Rel Index 3.8 Troponin I 0.293 H* (0.000-0.034) ng/mL NT-Pro-B Natriuret Pep pg/mL Total Protein 5.9 L (6.3-8.2) g/dL Albumin 3.2 L (3.5-5.0) g/dL TSH 0.542 (0.465-4.680) mIU/L 10/14/16 10/14/16 Range/Units 10:09 10:09 WBC (3.8-10.6) k/uL RBC (4.30-5.90) m/uL Hgb (13.0-17.5) gm/dL Hct (39.0-53.0) % MCV (80.0-100.0) fL MCH (25.0-35.0) pg MCHC (31.0-37.0) g/dL RDW (11.5-15.5) % Plt Count (150-450) k/uL Neutrophils % % Lymphocytes % % Monocytes % % Eosinophils % % Basophils % % Neutrophils # (1.3-7.7) k/uL Lymphocytes # (1.0-4.8) k/uL Monocytes # (0-1.0) k/uL Eosinophils # (0-0.7) k/uL Basophils # (0-0.2) k/uL PT 11.9 (9.0-12.0) sec INR 1.2 H (<1.2) APTT 23.3 (22.0-30.0) sec D-Dimer 16.90 H (<0.60) mg/L FEU Sodium (137-145) mmol/L Potassium (3.5-5.1) mmol/L Chloride (98-107) mmol/L Carbon Dioxide (22-30) mmol/L Anion Gap mmol/L BUN (9-20) mg/dL Creatinine (0.66-1.25) mg/dL Est GFR (MDRD) Af Amer (>60 ml/min/1.73 sqM) Est GFR (MDRD) Non-Af (>60 ml/min/1.73 sqM) Glucose (74-99) mg/dL Calcium (8.4-10.2) mg/dL Phosphorus (2.5-4.5) mg/dL Magnesium (1.6-2.3) mg/dL Total Bilirubin (0.2-1.3) mg/dL AST (17-59) U/L ALT (21-72) U/L Alkaline Phosphatase (38-126) U/L Total Creatine Kinase (55-170) U/L CK-MB (CK-2) (0.0-2.4) ng/mL CK-MB (CK-2) Rel Index Troponin I (0.000-0.034) ng/mL NT-Pro-B Natriuret Pep 680 pg/mL Total Protein (6.3-8.2) g/dL Albumin (3.5-5.0) g/dL TSH (0.465-4.680) mIU/L - Radiology Data Radiology results: report reviewed (Chest x-ray negative, CTA shows positive pulmonary and wasn't with pericardial effusion), image reviewed Critical Care Time Critical Care Time: Yes Total Critical Care Time: 65 Disposition Clinical Impression: Mass of right lung, Atypical chest pain, Chest pain, Atrial fibrillation with RVR, Pericardial effusion, Pulmonary embolism Disposition: ADMITTED IP TO THIS HOSP Condition: Serious Referrals: None,Stated [Primary Care Provider] - 1-2 days
[2016-10-14] MEDS ORDERED: MORPHINE SULFATE 4 MG/ML SYRINGE IVP STA (11:37)
[2016-10-14] MEDS ORDERED: HEPARIN SODIUM,PORCINE 5,000 UNIT/ML 1 ML VIAL IV ONE (11:40)
[2016-10-14] MEDS ORDERED: HEPARIN SODIUM,PORCINE 5,000 UNIT/ML 1 ML VIAL IV PRN ×3 (11:40→18:13)
[2016-10-14] MEDS ORDERED: RX INFO: IV CONTRAST WAS GIVEN 1 EACH MISC MISCELLANE PRN (11:40)
[2016-10-14] MEDS ORDERED: HEPARIN SODIUM,PORCINE/D5W PMX 25,000 UNIT in DEXTROSE/WATER 1 500ML.BAG IV SCH (11:45)
[2016-10-14] MEDS ORDERED: ASPIRIN 325 MG TAB PO STA (11:46)
[2016-10-14] MEDS ORDERED: SODIUM CHLORIDE 0.9% 1,000 ML IV SCH (12:00)
[2016-10-14] MEDS ORDERED: HEPARIN SODIUM,PORCINE 10,000 UNIT/ML 1 ML VIAL IV ONE (14:22)
--- NOTE | 2016-10-14 14:24 | CT ---
EXAMINATION TYPE: CT angio chest DATE OF EXAM: 10/14/2016 COMPARISON: 09/14/2016 HISTORY: 55-year-old male with chest pain TECHNIQUE: Contiguous axial scanning of the chest performed with IV Contrast, patient injected with 1 00 mL of Omnipaque 350. Coronal/sagittal MIP reconstructions performed. CT DLP: 530 mGycm Automated exposure control for dose reduction was used. FINDINGS: The heart is normal size. There is increasing now moderate to large pericardial effusion measuring up to 2.5 cm thick. There is no abnormal right atrial dilatation. However, there is reflux of contrast into the IVC and hepatic veins. Coronary vessel calcifications are present and artery marker for toyin nary artery disease. Satisfactory opacification of the pulmonary arterial system the knee There is a tiny branch point embolus at the junction of the subsegmental branches in the basilar left lower lobe, axial image 106. There is a larger pulmonary embolus extending within the right lower lo bar pulmonary artery extending to a couple basilar segmental and subsegmental branch, axial image 96. Bullous emphysema redemonstrated. There is redemonstrated mediastinal lymphadenopathy which measures up to 1.9 cm in the paratracheal r egion versus 1.8 cm, 1.4 cm prevascular space versus 1.4 cm. 1.6 cm right paratracheal versus 1.7 cm, previously. 1.3 cm right tracheobronchial angle versus 1.3 cm, previously. 1.5 cm AP window, not sig nificant changed. 1.4 cm subcarinal versus 1.7 cm, previously. There is contiguous abnormal soft tissue within the right hilum encasing the distal right mainstem br onchus and right upper lobe and segmental bronchi. Enlarging mass now measuring 7.1 x 7.3 cm in the r ight upper lobe. This previously had a patchy nonconfluent appearance. A satellite nodule measuring 5 mm in the right upper lobe has also enlarged, previously measuring 3 mm. Trace right pleural effusion is new. In the upper abdomen, there is new 1.9 cm nodularity of the right adrenal gland. Bones: No osseous destructive process. IMPRESSION: 1. EXAM POSITIVE FOR PULMONARY EMBOLUS. THERE IS MILD BURDEN ON THE RIGHT INVOLVING LOWER LOBAR, SEGM ENTAL AND A COUPLE SUBSEGMENTAL BRANCHES. TINY BRANCH POINT EMBOLUS AT THE LEFT BASE. 2. WHILE THERE ARE NO SPECIFIC FINDINGS OF RIGHT HEART STRAIN, THERE IS AN INCREASING MODERATE TO LAR GE PERICARDIAL EFFUSION MEASURING UP TO 2.5 CM THICK. 3. ENLARGING RIGHT UPPER LOBE MASS NOW MEASURING 7.3 CM. ENLARGING 5 MM RIGHT UPPER LOBE SATELLITE NO DULE. OVERALL STABLE. SPINAL LYMPHADENOPATHY MEASURING UP TO 1.9 CM. 4. NEW 1.9 CM NODULARITY OF THE RIGHT ADRENAL GLAND COULD REPRESENT PROGRESSIVE METASTATIC DISEASE. Critical findings called to Dr. Mandel in the ER at 2:20pm.
[2016-10-14] MEDS: HEPARIN SODIUM,PORCINE/D5W PMX 25,000 UNIT in DEXTROSE/WATER 1 500ML.BAG IV SCH (14:30)
--- NOTE | 2016-10-14 17:05 | P.CONS ---
History of Present Illness - Reason for Consult Consult date: 10/14/16 Pulmonary embolus. Lung cancer with brain metastases - History of Present Illness The patient is a 55-year-old gentleman, well-known to our service. He is followed by Dr. Lee in the outpatient setting. Presented in early , with chest pain, and was found to have a right-sided lung mass. Biopsy was positive for poorly differentiated adenocarcinoma. The patient subsequently had a PET scan which unfortunately revealed stage IV disease, with involvement in the skeleton, in the upper abdomen. He was also then found to have brain metastasis. He was referred to radiation oncology, and was placed on steroids. He then started whole brain radiation which he was supposed to complete today. The patient came into the emergency room, as he had developed fairly acute onset of left-sided chest pain, associated with shortness of breath and dizziness. As part of his workup, he had a CT angiogram of the chest done. This revealed right-sided pulmonary embolus, as well as a small distal left sided clots. A pericardial effusion, 2.5 cm, that appear to be larger than before was also noted. In addition computed tomography scan also appeared to show some progression in the lung mass. He was therefore admitted, and started on IV heparin. Consult was placed for further evaluation. CBC revealed platelet counts of 100,000. Other aspects of the CBC were normal. Baseline coags were within normal limits. Review of Systems Constitutional: Reports fatigue, Reports weakness, Reports weight loss (Has stabilized. He is actually starting to gain weight) Eyes: denies blurred vision, denies pain Ears: deny: decreased hearing, ear discharge, earache, tinnitus Ears, nose, mouth and throat: Denies headache, Denies sore throat Cardiovascular: Reports chest pain, Reports rapid heart beat, Reports shortness of breath Respiratory: Reports as per HPI, Reports dyspnea Gastrointestinal: Denies abdominal pain, Denies diarrhea, Denies nausea, Denies vomiting Genitourinary: Reports as per HPI (No specific complaints) Musculoskeletal: Reports muscle weakness Integumentary: Denies pruritus, Denies rash Neurological: Reports headaches (Improved), Reports weakness Psychiatric: Denies anxiety, Denies depression Endocrine: Reports fatigue, Reports recent glucocorticoid use, Reports weight change Hematologic/Lymphatic: Reports as per HPI Past Medical History Past Medical History: Cancer, Hypertension, Osteoarthritis (OA) Additional Past Medical History / Comment(s): 09/2016 Diagnosed with non small cell lung cancer, right upper lobe with brain metastasis-pt was to have his last radiation today and start chemotherapy next week. History of Any Multi-Drug Resistant Organisms: None Reported Past Surgical History: Hernia Repair, Orthopedic Surgery Additional Past Surgical History / Comment(s): 09/15/16 bronchoscopy with bx, left ankle plate and screws, R inguinal hernia repair. Past Anesthesia/Blood Transfusion Reactions: No Reported Reaction Past Psychological History: No Psychological Hx Reported Additional Psychological History / Comment(s): Pt resides with his spouse. He is independent. He is not driving at present, family takes him to [employer]. Smoking Status: Former smoker Past Alcohol Use History: None Reported Additional Past Alcohol Use History / Comment(s): Pt states he recently quit smoking in May 2016. He smoked for 35 yrs. Past Drug Use History: Marijuana Additional Drug Use History / Comment(s): Pt quit smoking marijuana recently. He normally would smoke 1 joint or less a day. - Past Family History Father Family Medical History: Pneumonia Additional Family Medical History / Comment(s): Father was a [employer] and had numerous injuries/surgeries from that. He at 76yrs from pneumonia Mother Family Medical History: Cancer Additional Family Medical History / Comment(s): Mother of some form of cancer when pt was 5 yrs old. Medications and Allergies Home Medications Medication Instructions Recorded Confirmed Type Hydrochlorothiazide [Hydrodiuril] 25 mg PO DAILY 09/14/16 10/14/16 History ALPRAZolam [Xanax] 0.25 mg PO BID 10/14/16 10/14/16 History Albuterol Inhaler [Ventolin Hfa 2 puff PO Q4H PRN 10/14/16 10/14/16 History Inhaler] Dexamethasone [Hexadrol] 4 mg PO TID 10/14/16 10/14/16 History Omeprazole [PriLOSEC] 20 mg PO DAILY 10/14/16 10/14/16 History Allergies Allergy/AdvReac Type Severity Reaction Status Date / Time No Known Allergies Allergy Verified 10/14/16 10:48 Physical Exam Vitals: Vital Signs Pulse Resp BP Pulse Ox 10/14/16 15:26 44 L 18 124/65 98 10/14/16 14:56 40 L 130/56 96 10/14/16 14:26 46 L 139/87 96 10/14/16 13:56 44 L 116/76 97 10/14/16 12:35 42 L 18 100/66 93 L 10/14/16 11:38 114 H 126/72 96 10/14/16 11:09 114 H 110/73 94 L 10/14/16 10:38 98 126/71 96 10/14/16 10:03 113 H 18 166/87 97 Intake and Output 10/14/16 10/14/16 10/14/16 06:59 14:59 22:59 Output Total 0 Balance 0 Output: Urine 0 Other: Weight 75.75 kg Patient Weight 10/15/16 06:59 Weight 75.75 kg - Constitutional General appearance: no acute distress - EENT Eyes: EOMI, PERRLA ENT: hearing grossly normal, normal oropharynx - Neck Neck: no lymphadenopathy Thyroid: bilateral: normal size - Respiratory Respiratory: bilateral: CTA - Cardiovascular Rhythm: regular Heart sounds: normal: S1, S2 - Gastrointestinal General gastrointestinal: normal bowel sounds, soft - Integumentary Integumentary: normal - Neurologic Neurologic: CNII-XII intact - Musculoskeletal Musculoskeletal: strength equal bilaterally - Psychiatric Psychiatric: A&O x's 3, appropriate affect Results CBC & Chem 7: 10/14/16 10:09 10/14/16 10:09 Labs: Abnormal Lab Results - Last 24 Hours (Table) 10/14/16 10/14/16 10/14/16 Range/Units 10:09 10:09 10:09 WBC 20.2 H (3.8-10.6) k/uL RBC 4.05 L (4.30-5.90) m/uL Hgb 12.7 L (13.0-17.5) gm/dL Hct 37.2 L (39.0-53.0) % Plt Count 100 L D (150-450) k/uL Neutrophils # 18.7 H (1.3-7.7) k/uL Lymphocytes # 0.6 L (1.0-4.8) k/uL INR (<1.2) D-Dimer (<0.60) mg/L FEU Sodium 136 L (137-145) mmol/L BUN 37 H (9-20) mg/dL Glucose 118 H (74-99) mg/dL AST 151 H (17-59) U/L ALT 223 H (21-72) U/L CK-MB (CK-2) 4.7 H* (0.0-2.4) ng/mL Troponin I 0.293 H* (0.000-0.034) ng/mL Total Protein 5.9 L (6.3-8.2) g/dL Albumin 3.2 L (3.5-5.0) g/dL 10/14/16 Range/Units 10:09 WBC (3.8-10.6) k/uL RBC (4.30-5.90) m/uL Hgb (13.0-17.5) gm/dL Hct (39.0-53.0) % Plt Count (150-450) k/uL Neutrophils # (1.3-7.7) k/uL Lymphocytes # (1.0-4.8) k/uL INR 1.2 H (<1.2) D-Dimer 16.90 H (<0.60) mg/L FEU Sodium (137-145) mmol/L BUN (9-20) mg/dL Glucose (74-99) mg/dL AST (17-59) U/L ALT (21-72) U/L CK-MB (CK-2) (0.0-2.4) ng/mL Troponin I (0.000-0.034) ng/mL Total Protein (6.3-8.2) g/dL Albumin (3.5-5.0) g/dL Chest x-ray: report reviewed CT scan - chest: report reviewed Assessment and Plan (1) Pulmonary embolism Narrative/Plan: The report of the CT of the chest was reviewed, noted in the HPI. The patient is hemodynamically stable. He's been started on IV heparin appropriately. The case was discussed with the admitting service. The patient does have brain metastasis, but has essentially completed radiation for the same. Greatly reduces any risk of bleeding, and therefore risk-benefit definitely favors anticoagulation in this case. The patient was advised, that the pulmonary embolus is due to his malignancy. Therefore he will need lifelong anticoagulation (as his cancer is metastatic, and not curable). Liver and renal function are normal, therefore Coumadin or any of the direct factor antagonists would be reasonable choices for him. The patient does have an increasing pericardial effusion. Possible that he may need drainage. Therefore he should be continued on IV heparin, the invasive procedures have been completed, as that would be the easiest to stop, reverse, and restart for her procedure. Patient's platelet counts were low, but are safe at 100,000. Any count above 50,000 is sufficient for anticoagulation. I will also check lower extremity venous Dopplers for a baseline. Status: Acute (2) Pericardial effusion Narrative/Plan: Clinically, the patient does not appear to be in tamponade. His history, malignant etiology is quite likely. The case was discussed with the admitting service, as well as CTS. Echocardiogram will be ordered. Defer to CTS, as to need for drainage. 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 He has almost completed whole brain radiation. He continued on Decadron, or his taper. Follow-up with Dr. Lee on discharge to begin systemic therapy Status: Acute
[2016-10-14] MEDS: DEXAMETHASONE 4 MG TAB PO SCH (18:25)
--- NOTE | 2016-10-14 18:56 | P.CNPUL ---
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 The patient presented to the hospital with an acute onset left sided pleuritic chest pain. No hemoptysis. No pleurisy. No swelling lower extremities. No prior history of any DVTs or pulmonary embolism. No angina. No syncope. CT angios the chest was done and showed positive pulmonary embolism. There was a mild burden on the right involving the right lower lobe and segmental and a couple of subsegmental branches in the left lung base. In addition, there was an enlarging right upper lobe mass measuring 7.3 cm in size in addition to enlarging satellite nodules and lymphadenopathy. Nodularity measuring 1.9 cm in the right adrenal gland. Pericardial effusion is also seen and an echocardiogram is to follow to make sure there is no evidence of temponad. He states that his been in good condition. He had been eating well. No nausea. No vomiting. No emesis. No syncope. No cardiac arrhythmias Review of Systems Constitutional: Reports weakness, Reports weight gain Eyes: denies blurred vision, denies bulging eye, denies decreased vision Ears: deny: decreased hearing, ear discharge, earache, tinnitus Ears, nose, mouth and throat: Denies headache, Denies sore throat Cardiovascular: Reports chest pain, Reports dyspnea on exertion Respiratory: Reports dyspnea, Reports pleurisy Gastrointestinal: Denies abdominal pain, Denies diarrhea, Denies nausea, Denies vomiting Genitourinary: Reports as per HPI Musculoskeletal: Denies myalgias Musculoskeletal: absent: ankle pain, ankle stiffness, ankle swelling Integumentary: Denies pruritus, Denies rash Neurological: Denies numbness, Denies weakness Endocrine: Denies fatigue, Denies weight change Past Medical History Past Medical History: Cancer, Hypertension, Osteoarthritis (OA) Additional Past Medical History / Comment(s): Metastatic adenocarcinoma of the lung with LICENSED GUIDE metastases diagnosed in September 2016, completing brain radiation, pericardial effusion History of Any Multi-Drug Resistant Organisms: None Reported Past Surgical History: Hernia Repair, Orthopedic Surgery Additional Past Surgical History / Comment(s): 09/15/16 bronchoscopy with bx, left ankle plate and screws, R inguinal hernia repair. Past Anesthesia/Blood Transfusion Reactions: No Reported Reaction Past Psychological History: No Psychological Hx Reported Additional Psychological History / Comment(s): Pt resides with his spouse. He is independent. He is not driving at present, family takes him to [place]. Smoking Status: Former smoker Past Alcohol Use History: None Reported Additional Past Alcohol Use History / Comment(s): Pt states he recently quit smoking in May 2016. He smoked for 35 yrs. Past Drug Use History: Marijuana Additional Drug Use History / Comment(s): Pt quit smoking marijuana recently. He normally would smoke 1 joint or less a day. - Past Family History Father Family Medical History: Pneumonia Additional Family Medical History / Comment(s): Father was a WWII and had numerous injuries/surgeries from that. He at 76yrs from pneumonia Mother Family Medical History: Cancer Additional Family Medical History / Comment(s): Mother of some form of cancer when pt was 5 yrs old. Medications and Allergies Home Medications Medication Instructions Recorded Confirmed Type Hydrochlorothiazide [Hydrodiuril] 25 mg PO DAILY 09/14/16 10/14/16 History ALPRAZolam [Xanax] 0.25 mg PO BID 10/14/16 10/14/16 History Albuterol Inhaler [Ventolin Hfa 2 puff PO Q4H PRN 10/14/16 10/14/16 History Inhaler] Dexamethasone [Hexadrol] 4 mg PO TID 10/14/16 10/14/16 History Omeprazole [PriLOSEC] 20 mg PO DAILY 10/14/16 10/14/16 History Allergies Allergy/AdvReac Type Severity Reaction Status Date / Time No Known Allergies Allergy Verified 10/14/16 10:48 Physical Exam Vitals: Vital Signs Temp Pulse Pulse Resp BP BP Pulse Ox 10/14/16 16:00 96.6 F L 43 L 18 159/77 96 10/14/16 15:26 44 L 18 124/65 98 10/14/16 14:56 40 L 130/56 96 10/14/16 14:26 46 L 139/87 96 10/14/16 13:56 44 L 116/76 97 10/14/16 12:35 42 L 18 100/66 93 L 10/14/16 11:38 114 H 126/72 96 10/14/16 11:09 114 H 110/73 94 L 10/14/16 10:38 98 126/71 96 10/14/16 10:03 113 H 18 166/87 97 Intake and Output 10/14/16 10/14/16 10/14/16 06:59 14:59 22:59 Output Total 0 Balance 0 Output: Urine 0 Other: Voiding Method Urinal Weight 75.75 kg Patient Weight 10/15/16 06:59 Weight 75.75 kg Head exam was generally normal. There was no scleral icterus or corneal arcus. Mucous membranes were moist.Neck was supple and without jugular venous distension, thyromegaly, or carotid bruits. Carotids were easily palpable bilaterally. There was no adenopathy. Lung sounds are diminished bilaterally otherwise clear.Cardiac exam revealed the PMI to be normally situated and sized. The rhythm was regular and no extrasystoles were noted during several minutes of auscultation. The first and second heart sounds were normal and physiologic splitting of the second heart sound was noted. There were no murmurs , rubs, clicks, or gallops. Abdomen is slightly distended soft. No ascites. No direct tenderness rebound tensile guarding.Examination of the extremities revealed easily palpable radial, femoral and pedal pulses. There was no cyanosis , clubbing or edema. Results - Laboratory Findings CBC and BMP: 10/14/16 10:09 10/14/16 10:09 PT/INR, D-dimer PT 11.9 sec (9.0-12.0) 10/14/16 10:09 INR 1.2 (<1.2) H 10/14/16 10:09 D-Dimer 16.90 mg/L FEU (<0.60) H 10/14/16 10:09 Abnormal lab findings: Abnormal Labs 10/14/16 10/14/16 10/14/16 10:09 10:09 10:09 WBC 20.2 H RBC 4.05 L Hgb 12.7 L Hct 37.2 L Plt Count 100 L D Neutrophils # 18.7 H Lymphocytes # 0.6 L INR D-Dimer Sodium 136 L BUN 37 H Glucose 118 H AST 151 H ALT 223 H CK-MB (CK-2) 4.7 H* Troponin I 0.293 H* Total Protein 5.9 L Albumin 3.2 L 10/14/16 10:09 WBC RBC Hgb Hct Plt Count Neutrophils # Lymphocytes # INR 1.2 H D-Dimer 16.90 H Sodium BUN Glucose AST ALT CK-MB (CK-2) Troponin I Total Protein Albumin - Diagnostic Findings CT scan - chest: image reviewed Assessment and Plan Plan: Assessment 1 acute pulmonary embolism with secondary shortness of breath and pleuritic chest pain, currently on IV heparin. Patient has an acidic lung cancer and the patient is currently being treated with brain radiation and systemic chemotherapy is to follow. 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 The patient also has metastases to the bone and probably adrenal glands. A malignant pericardial effusion is also suspected. Completed brain radiation 3 LICENSED GUIDE metastases, completed radiation 4 pericardial effusion without any clinical signs of temporal not. Awaiting echocardiogram results. 5 thrombocytopenia Plan Continue IV heparin. Monitor platelet counts. Monitor hemoglobin. Echocardiogram to assess for any pericardial temporal not. No tampon physiology at least at this point. CV surgery will be involved at a later stage. Meanwhile, keep the patient IV heparin and will not transition him to oral anticoagulants yet until the cardiac situation is cleared. Prognosis poor. Disease metastatic. One-year survival less than 5%.
--- NOTE | 2016-10-14 19:17 | US ---
EXAMINATION TYPE: US venous doppler duplex LE DATE OF EXAM: 10/14/2016 6:59 PM COMPARISON: NONE CLINICAL HISTORY: Pulmonary embolus. PE, on heparin, no leg pain or swelling, going through radiation for lung ca SIDE PERFORMED: Bilateral TECHNIQUE: The lower extremity deep venous system is examined utilizing real time linear array sonog macho with graded compression, doppler sonography and color-flow sonography. VESSELS IMAGED: External Iliac Vein (EIV) Common Femoral Vein Deep Femoral Vein Greater Saphenous Vein * Femoral Vein Popliteal Vein Small Saphenous Vein * Proximal Calf Veins (* superficial vessels) Right Leg: Appears negative for DVT. Two prominent focal areas of bulging seen at proximal and mid popliteal vein, vascular flow seen. Left Leg: Appears negative for DVT IMPRESSION: No evidence of deep venous thrombosis in the left and right leg. There is mild ectasia of the right popliteal vein.
[2016-10-14 19:42] LABS: Creatine Kinase MB 27.7 ng/mL (0.0-2.4); Troponin I 4.17 ng/mL (0.000-0.034)
[2016-10-14] MEDS ORDERED: METOPROLOL TARTRATE 25 MG TAB PO SCH (21:00)
[2016-10-14] MEDS: ALPRAZolam 0.25 MG TAB PO SCH (22:32)
[2016-10-15 01:18] LABS: Glucose,Whole Blood 150 mg/dL (75-99)
[2016-10-15] MEDS ORDERED: HYDROmorphone 1 MG/ML 1 ML SYRINGE IVP PRN (01:23)
[2016-10-15] MEDS ORDERED: ONDANSETRON 4 MG/2 ML VIAL IVP PRN (01:23)
[2016-10-15 03:28] LABS: Basophils % (A) 0 %; CH 30.6; CHCM 32.2; Eosinophils # (A) 0.2 k/uL (0-0.7); Eosinophils % (A) 1 %; HCT 37.2 % (39.0-53.0); HDW 2.27; Luc # (Auto) 0.16; Luc % (Auto) 1; Lymphocytes # (A) 0.3 k/uL (1.0-4.8); Lymphocytes % (A) 2 %; MCH 30.8 pg (25.0-35.0); MCHC 32.3 g/dL (31.0-37.0); MCV 95.6 fL (80.0-100.0); Monocytes # (A) 0.6 k/uL (0-1.0); Monocytes % (A) 3 %; Neutrophils # (A) 19.8 k/uL (1.3-7.7); Neutrophils % (A) 94 %; RBC 3.89 m/uL (4.30-5.90); RDW 14.1 % (11.5-15.5); WBC 21.1 k/uL (3.8-10.6); WBC (Perox) 21.39
[2016-10-15 03:45] LABS: Creatine Kinase MB 34.4 ng/mL (0.0-2.4)
[2016-10-15 03:48] LABS: Manual Review Performed
[2016-10-15 06:05] LABS: Glucose,Whole Blood 139 mg/dL (75-99)
[2016-10-15] MEDS: TRIMETHOBENZAMIDE 100 MG/ML 2 ML VIAL IM PRN ×2 (07:30→07:32)
[2016-10-15] MEDS: IPRATROPIUM-ALBUTEROL 3 ML NEB INHALATION PRN ×4 (07:57→20:25)
[2016-10-15] MEDS: ALPRAZolam 0.25 MG TAB PO SCH ×2 (09:05→21:24)
[2016-10-15] MEDS: HEPARIN SODIUM,PORCINE/D5W PMX 25,000 UNIT in DEXTROSE/WATER 1 500ML.BAG IV SCH (09:06)
--- NOTE | 2016-10-15 09:53 | P.CRDCN ---
History of Present Illness Consult date: 10/15/16 Reason for Consult (text): A-fib with RVR Chief complaint: chest pain, shortness of breath History of present illness: This is a pleasant 55-year-old gentleman who was recently diagnosed with poorly differentiated adenocarcinoma the right lung, stage IV with involvement in the skeleton upper abdomen and brain metastasis and has been undergoing radiation, and steroids. Mr. Crum is quite ill. He presented to the emergency department after developing acute onset of left-sided chest pain with associated shortness of breath and dizziness. Upon arrival he was found to be in atrial fibrillation with rapid ventricular response, initiated on Cardizem drip which is subsequently been discontinued due to bradycardia after converting to sinus rhythm. Patient's d-dimer was found to be quite elevated and subsequently underwent CTA of the chest that showed tiny branch point embolus at the junction of the subsegmental branches in the basilar left lower lobe with larger pulmonary embolus extending within the right lower lobe pulmonary artery. CT also showed enlarging right upper lobe mass as well as a new nodularity of the right adrenal gland that could represent progressive metastatic disease. Also found to have moderate to large pericardial effusion measuring up to 2.5 cm thick. Echocardiogram was done, we're awaiting results of that. Laboratory values showed a troponin of 0.293, 4.17 and 11, elevated white count and a BNP of 680. A venous Doppler was negative for DVT. Upon examination, the patient remains quite short of breath. His main complaint at this time is abdominal distention and tenderness. He denies current complaint of chest discomfort. He is quite bradycardic which the says is normal for him. Apparently he has had a low heart rate for several years. 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 Past Anesthesia/Blood Transfusion Reactions: No Reported Reaction Past Psychological History: No Psychological Hx Reported Additional Psychological History / Comment(s): Pt resides with his spouse. He is independent. He is not driving at present, family takes him to [employer]. Smoking Status: Former smoker Past Alcohol Use History: None Reported Additional Past Alcohol Use History / Comment(s): Pt states he recently quit smoking in May 2016. He smoked for 35 yrs. Past Drug Use History: Marijuana Additional Drug Use History / Comment(s): Pt quit smoking marijuana recently. He normally would smoke 1 joint or less a day. - Past Family History Father Family Medical History: Pneumonia Additional Family Medical History / Comment(s): Father was a WWII and had numerous injuries/surgeries from that. He at 76yrs from pneumonia Mother Family Medical History: Cancer Additional Family Medical History / Comment(s): Mother of some form of cancer when pt was 5 yrs old. Medications and Allergies Home Medications Medication Instructions Recorded Confirmed Type Hydrochlorothiazide [Hydrodiuril] 25 mg PO DAILY 09/14/16 10/14/16 History ALPRAZolam [Xanax] 0.25 mg PO BID 10/14/16 10/14/16 History Albuterol Inhaler [Ventolin Hfa 2 puff PO Q4H PRN 10/14/16 10/14/16 History Inhaler] Dexamethasone [Hexadrol] 4 mg PO TID 10/14/16 10/14/16 History Omeprazole [PriLOSEC] 20 mg PO DAILY 10/14/16 10/14/16 History Allergies Allergy/AdvReac Type Severity Reaction Status Date / Time No Known Allergies Allergy Verified 10/14/16 10:48 Physical Exam Vitals: Vital Signs Temp Pulse Pulse Resp BP BP Pulse Ox 10/15/16 08:08 40 L 10/15/16 07:59 42 L 90 L 10/15/16 04:00 96.5 F L 47 L 17 140/75 96 10/15/16 00:00 97.8 F 48 L 20 135/65 97 10/14/16 20:00 96 F L 46 L 22 152/85 97 10/14/16 19:52 96 10/14/16 16:00 96.6 F L 43 L 18 159/77 96 10/14/16 15:26 44 L 18 124/65 98 10/14/16 14:56 40 L 130/56 96 10/14/16 14:26 46 L 139/87 96 10/14/16 13:56 44 L 116/76 97 10/14/16 12:35 42 L 18 100/66 93 L 10/14/16 11:38 114 H 126/72 96 10/14/16 11:09 114 H 110/73 94 L 10/14/16 10:38 98 126/71 96 10/14/16 10:03 113 H 18 166/87 97 Intake and Output 10/14/16 10/15/16 10/15/16 22:59 06:59 14:59 Intake Total 176.346 218 Output Total 650 Balance -473.654 218 Intake: Intake, IV Titration 176.346 218 Amount Heparin Sodium,Porcine/ 218 D5w Pmx 25,000 unit In Dextrose/Water 1 500ml. bag @ 12 UNITS/KG/HR 18. 18 mls/hr IV .Q24H [facility] Rx #:[id number] Heparin Sodium,Porcine/ 176.346 D5w Pmx 25,000 unit In Dextrose/Water 1 500ml. bag @ 18 UNITS/KG/HR 27. 27 mls/hr IV .[id number] [facility] Rx#:[id number] Output: Urine 650 Other: Voiding Method Urinal Bedside Commode Urinal # Voids 1 PHYSICAL EXAMINATION: HEENT: Head is atraumatic, normocephalic. Pupils equal, round. Neck is supple. There is no elevated jugular venous pressure. HEART EXAMINATION: Heart sounds regular, S1 and S2 distant, bradycardic. No murmur or gallop heard. CHEST EXAMINATION: Lungs reveal diminished air entry bilaterally. Patient appears dyspneic. No chest wall tenderness is noted on palpation or with deep breathing. ABDOMEN: Distended, tender. Bowel sounds are hypoactive. No organomegaly noted. EXTREMITIES: 2+ peripheral pulses with no evidence of peripheral edema and no calf tenderness noted. NEUROLOGIC patient is awake, alert and oriented x3. . Results 10/15/16 02:57 10/14/16 10:09 Cardiac Enzymes 10/14/16 10/14/16 10/14/16 Range/Units 10:09 10:09 18:26 AST 151 H (17-59) U/L CK-MB (CK-2) 4.7 H* 27.7 H* (0.0-2.4) ng/mL Troponin I 0.293 H* 4.170 H* (0.000-0.034) ng/mL 10/15/16 Range/Units 02:57 AST (17-59) U/L CK-MB (CK-2) 34.4 H* (0.0-2.4) ng/mL Troponin I 11.000 H* (0.000-0.034) ng/mL Coagulation 10/14/16 10/14/16 10/15/16 Range/Units 10:09 20:28 02:57 PT 11.9 (9.0-12.0) sec APTT 23.3 76.8 H 51.4 H (22.0-30.0) sec CBC 10/14/16 10/15/16 Range/Units 10:09 02:57 WBC 20.2 H 21.1 H (3.8-10.6) k/uL RBC 4.05 L 3.89 L (4.30-5.90) m/uL Hgb 12.7 L 12.0 L (13.0-17.5) gm/dL Hct 37.2 L 37.2 L (39.0-53.0) % Plt Count 100 L D 91 L (150-450) k/uL Comprehensive Metabolic Panel 10/14/16 Range/Units 10:09 Sodium 136 L (137-145) mmol/L Potassium 3.9 (3.5-5.1) mmol/L Chloride 101 (98-107) mmol/L Carbon Dioxide 26 (22-30) mmol/L BUN 37 H (9-20) mg/dL Creatinine 0.80 (0.66-1.25) mg/dL Glucose 118 H (74-99) mg/dL Calcium 8.6 (8.4-10.2) mg/dL AST 151 H (17-59) U/L ALT 223 H (21-72) U/L Alkaline Phosphatase 102 (38-126) U/L Total Protein 5.9 L (6.3-8.2) g/dL Albumin 3.2 L (3.5-5.0) g/dL Current Medications Generic Name Dose Route Start Last Admin Trade Name Freq PRN Reason Stop Dose Admin Albuterol/Ipratropium 3 ml 10/14/16 11:46 10/15/16 07:57 Duoneb 0.5 Mg-3 Mg/3 Ml Soln INHALATION 3 ml RT-Q4H PRN Administration shortness of breath Alprazolam 0.25 mg 10/14/16 21:00 10/14/16 22:32 Xanax PO Not Given BID [facility] Aspirin 325 mg 10/15/16 09:00 Aspirin PO DAILY [facility] Dexamethasone 4 mg 10/14/16 21:00 10/14/16 18:25 Hexadrol PO 4 mg BID [facility] Administration Heparin Sodium (Porcine) 0 unit 10/14/16 14:39 Heparin IV PER PROTOCOL PRN Low PTT Protocol Hydrochlorothiazide 25 mg 10/15/16 09:00 Hydrodiuril PO DAILY [facility] Hydromorphone HCl 0.5 mg 10/15/16 01:23 Dilaudid IVP Q4HR PRN pain rated 1-5 Hydromorphone HCl 1 mg 10/15/16 01:23 Dilaudid IVP Q4HR PRN pain rated to 6-10 Diltiazem HCl 125 mg/ Sodium 125 mls @ 5 mls/hr 10/14/16 10:07 10/14/16 10:24 Chloride IV 10/15/16 10:06 5 mg/hr .Q24H ONE 5 mls/hr 5 MG/HR Administration Heparin Sodium/Dextrose 25,000 500 mls @ 27.27 mls/hr 10/14/16 14:22 20:58 unit/ IV Solution IV 16 units/kg/hr .[id number] [facility] 24.24 mls/hr Protocol Titration 18 UNITS/KG/HR Miscellaneous Information 1 each 10/14/16 11:40 Rx Info: Iv Contrast Was Given MISCELLANE 10/16/16 11:40 DAILY PRN Per Protocol Pantoprazole Sodium 40 mg 10/15/16 07:30 Protonix PO AC-BRKFST [facility] Trimethobenzamide HCl 200 mg 10/15/16 06:13 10/15/16 07:32 Tigan IM 200 mg TID PRN Administration Nausea And Vomiting Intake and Output 10/14/16 10/15/16 10/15/16 22:59 06:59 14:59 Intake Total 176.346 218 Output Total 650 Balance -473.654 218 Intake: Intake, IV Titration 176.346 218 Amount Heparin Sodium,Porcine/ 218 D5w Pmx 25,000 unit In Dextrose/Water 1 500ml. bag @ 12 UNITS/KG/HR 18. 18 mls/hr IV .Q24H [facility] Rx #:[id number] Heparin Sodium,Porcine/ 176.346 D5w Pmx 25,000 unit In Dextrose/Water 1 500ml. bag @ 18 UNITS/KG/HR 27. 27 mls/hr IV .[id number] [facility] Rx#:[id number] Output: Urine 650 Other: Voiding Method Urinal Bedside Commode Urinal # Voids 1 10/15/16 02:57 10/14/16 10:09 EKG Interpretations (text) Initially A. fib with RVR, subsequently marked sinus bradycardia Assessment and Plan Plan: Assessment and plan #1 poorly differentiated adenocarcinoma with skeletal and brain metastases, undergoing radiation therapy #2 pulmonary emboli #3 atrial fibrillation with rapid ventricular response, paroxysmal, new onset #4 pericardial effusion #5 abdominal distention and tenderness #6 bradycardia with episodes of junctional rhythm #7 non-STEMI Investment Underwriter perspective, we will wait echocardiogram results. We will schedule the patient for an abdominal ultrasound due to significant abdominal distention and tenderness. Continue IV heparin at this time. Avoid rate lowering medications as patient is already bradycardic, metoprolol has been discontinued. Further recommendations to follow. WIRE STITCHER note has been reviewed, I agree with a documented findings and plan of care. Patient was seen and examined.
--- NOTE | 2016-10-15 10:16 | US ---
EXAMINATION TYPE: US abdomen complete DATE OF EXAM: 10/15/2016 COMPARISON: None CLINICAL HISTORY: 55-year-old male abdominal distention, tenderness. Lung cancer patient with abdomin al tenderness. TECHNIQUE: Multiple sonographic images of the abdomen are obtained. FINDINGS: EXAM MEASUREMENTS: Liver Length: 16.4 cm Gallbladder Wall: 0.4 cm CBD: 0.4 cm Spleen: 8.4 cm Right Kidney: 11.1 x 5.0 x 5.7 cm Left Kidney: 10.8 x 5.5 x 5.5 cm Pancreas: Suboptimal visualization of the pancreatic tail and most of the body. Liver: Homogeneous echotexture without focal lesion. Gallbladder: No abnormal distention. There is mild wall thickening at 4 mm. No pericholecystic fluid or shadowing calculi. Evidence for sonographic Dsouza's sign: No CBD: wnl Spleen: wnl Right Kidney: No hydronephrosis Left Kidney: No hydronephrosis Upper IVC: wnl Abd Aorta: wnl Incidental note is made of left pleural effusion and pericardial effusion IMPRESSION: 1. Incidental right pleural as well as pericardial effusions. 2. Nonspecific mild gallbladder wall thickening. This can be seen in fluid overload states. No ancill nicolette imaging findings of acute cholecystitis.
[2016-10-15] MEDS: HYDROCHLOROTHIAZIDE 25 MG TAB PO SCH (11:48)
[2016-10-15] MEDS: ASPIRIN 325 MG TAB PO SCH (11:48)
[2016-10-15] MEDS: PANTOPRAZOLE 40 MG TABLET PO SCH (11:48)
[2016-10-15] MEDS: DEXAMETHASONE 4 MG TAB PO SCH ×2 (11:48→21:24)
--- NOTE | 2016-10-15 12:58 | P.PN ---
Subjective 55-year-old male patient with a known history of metastatic adenocarcinoma of the lung with MEDICAL MANAGEMENT SPECIALIST involvement, was about to complete brain radiation therapy and has not been initiated on systemic chemotherapy. The patient presented to the hospital with an acute onset left sided pleuritic chest pain. No hemoptysis. No pleurisy. No swelling lower extremities. No prior history of any DVTs or pulmonary embolism. No angina. No syncope. CT angios the chest was done and showed positive pulmonary embolism. There was a mild burden on the right involving the right lower lobe and segmental and a couple of subsegmental branches in the left lung base. In addition, there was an enlarging right upper lobe mass measuring 7.3 cm in size in addition to enlarging satellite nodules and lymphadenopathy. Nodularity measuring 1.9 cm in the right adrenal gland. Pericardial effusion is also seen and an echocardiogram is to follow to make sure there is no evidence of temponad. He states that his been in good condition. He had been eating well. No nausea. No vomiting. No emesis. No syncope. No cardiac arrhythmias On 10/15/2016 the patient is essentially the same. He denies having any chest pain. Still on IV heparin. Troponin peaked at 11.0. He also went into atrial fibrillation and he was started on Cardizem drip for rate control. Echocardiogram was done regarding the possibility of cardiac tamponade. Results are still pending for now. Meanwhile, ultrasound of the abdomen was also done and there is nonspecific mild gallbladder wall thickening. No ascites. No findings to suggest acute cholecystitis. There is a small right- sided pleural effusion. Doppler of the lower extremities also negative. Objective - Vital Signs Vital signs: Vital Signs Temp 96.9 F L 10/15/16 12:00 Pulse 45 L 10/15/16 12:00 Resp 18 10/15/16 12:00 BP 142/78 10/15/16 12:00 Pulse Ox 96 10/15/16 12:00 Intake & Output 10/14/16 10/15/16 10/15/16 18:59 06:59 18:59 Intake Total 394.346 294.112 Output Total 0 650 Balance 0 -255.654 294.112 Weight 75.75 kg 75.75 kg Intake: Intake, IV Titration 394.346 294.112 Amount Heparin Sodium,Porcine/ 218 D5w Pmx 25,000 unit In Dextrose/Water 1 500ml. bag @ 12 UNITS/KG/HR 18. 18 mls/hr IV .Q24H [facility] Rx #:[id number] Heparin Sodium,Porcine/ 176.346 294.112 D5w Pmx 25,000 unit In Dextrose/Water 1 500ml. bag @ 18 UNITS/KG/HR 27. 27 mls/hr IV .[id number] [facility] Rx#:[id number] Output: Urine 0 650 Other: Voiding Method Urinal Bedside Commode Urinal # Voids 1 - Exam Head exam was generally normal. There was no scleral icterus or corneal arcus. Mucous membranes were moist.Neck was supple and without jugular venous distension, thyromegaly, or carotid bruits. Carotids were easily palpable bilaterally. There was no adenopathy. Lung sounds are diminished bilaterally otherwise clear.Cardiac exam revealed the PMI to be normally situated and sized. The rhythm was regular and no extrasystoles were noted during several minutes of auscultation. The first and second heart sounds were normal and physiologic splitting of the second heart sound was noted. There were no murmurs , rubs, clicks, or gallops. Abdomen is slightly distended soft. No ascites. No direct tenderness rebound tensile guarding.Examination of the extremities revealed easily palpable radial, femoral and pedal pulses. There was no cyanosis , clubbing or edema. - Labs CBC & Chem 7: 10/15/16 02:57 10/14/16 10:09 Labs: Abnormal Lab Results - Last 24 Hours (Table) 10/14/16 10/14/16 10/15/16 Range/Units 18:26 20:28 01:07 WBC (3.8-10.6) k/uL RBC (4.30-5.90) m/uL Hgb (13.0-17.5) gm/dL Hct (39.0-53.0) % Plt Count (150-450) k/uL Neutrophils # (1.3-7.7) k/uL Lymphocytes # (1.0-4.8) k/uL APTT 76.8 H (22.0-30.0) sec POC Glucose (mg/dL) 150 H (75-99) mg/dL CK-MB (CK-2) 27.7 H* (0.0-2.4) ng/mL Troponin I 4.170 H* (0.000-0.034) ng/mL 10/15/16 10/15/16 10/15/16 Range/Units 02:57 02:57 02:57 WBC 21.1 H (3.8-10.6) k/uL RBC 3.89 L (4.30-5.90) m/uL Hgb 12.0 L (13.0-17.5) gm/dL Hct 37.2 L (39.0-53.0) % Plt Count 91 L (150-450) k/uL Neutrophils # 19.8 H (1.3-7.7) k/uL Lymphocytes # 0.3 L (1.0-4.8) k/uL APTT 51.4 H (22.0-30.0) sec POC Glucose (mg/dL) (75-99) mg/dL CK-MB (CK-2) 34.4 H* (0.0-2.4) ng/mL Troponin I 11.000 H* (0.000-0.034) ng/mL 10/15/16 Range/Units 06:03 WBC (3.8-10.6) k/uL RBC (4.30-5.90) m/uL Hgb (13.0-17.5) gm/dL Hct (39.0-53.0) % Plt Count (150-450) k/uL Neutrophils # (1.3-7.7) k/uL Lymphocytes # (1.0-4.8) k/uL APTT (22.0-30.0) sec POC Glucose (mg/dL) 139 H (75-99) mg/dL CK-MB (CK-2) (0.0-2.4) ng/mL Troponin I (0.000-0.034) ng/mL Assessment and Plan Plan: Assessment 1 acute pulmonary embolism with secondary shortness of breath and pleuritic chest pain, currently on IV heparin. Patient has an acidic lung cancer and the patient is currently being treated with brain radiation and systemic chemotherapy is to follow. As such he has probably an underlying hypercoagulability related to his metastatic lung cancer 2 metastatic adenocarcinoma of the lung with MEDICAL MANAGEMENT SPECIALIST involvement. The patient also has metastases to the bone and probably adrenal glands. A malignant pericardial effusion is also suspected. Completed brain radiation 3 MEDICAL MANAGEMENT SPECIALIST metastases, completed radiation 4 pericardial effusion without any clinical signs of temporal not. Awaiting echocardiogram results. 5 thrombocytopenia 6 acute non-STEMI 7 new-onset atrial fibrillation currently on a Cardizem drip for rate control Plan Continue IV heparin. Monitor platelet counts. Monitor hemoglobin. Echocardiogram to assess for any pericardial temporal . No intervention for acute non-STEMI. Management of atrial fibrillation per cardiology. The patient is in a very poor performance and functional status. His disease is advanced and his prognosis extremely poor. We are trying to establish a CODE STATUS for this patient. I suggested a DNR/DNI CODE STATUS. The patient will discuss it further with his family.
--- NOTE | 2016-10-15 13:35 | HP ---
DATE OF SERVICE; 10/14/2016 CHIEF COMPLAINT: Chest pain and shortness of breath. 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 The patient also had a drain radiation. However, still the patient complained of shortness of breath and some left-sided chest pain and dizziness. The patient came to [facility]. A chest CT showed multiple abnormalities including pulmonary embolism in the right lower lobe as well as pericardial effusion up to 2.4 cm as well as enlarged right upper lobe mass 1.9 cm with nodularity of the right adrenal gland. The patient admitted for further evaluation and treatment. The patient was started on IV heparin. Dr. Bhakta is following the patient. The patient is found to be mildly thrombocytopenic. There is no history of fever or rigors. No history of headache, loss of consciousness, seizures. PAST MEDICAL HISTORY: History of recent lung cancer with brain metastasis, history of DJD, history of hernia repair, history of pneumonia. MEDICATIONS PRIOR TO ADMISSION: 1. Albuterol two puffs q4 p.r.n. 2. Xanax 0.5 b.i.d. 3. Prilosec 20 mg p.o. 4. Hexadrol 4 mg t.i.d. 5. HydroDIURIL 25 mg p.o. daily. PHYSICAL EXAM: The patient is alert and oriented x3. Pulse is 42, blood pressure is 100/60, respirations 18, temperature normal. Pulse ox 92% on 2 liters. HEENT: Conjunctivae normal. Oral mucosa moist. NECK: JVD present. CARDIOVASCULAR: S1/S2 muffled. RESPIRATORY: Diminished breath sounds, especially at the bases. Scattered rhonchi. No crackles. ABDOMEN: Soft, nontender. No mass palpable. LEGS: No edema. NERVOUS SYSTEM: Higher functions as mentioned. Moves all four limbs. No focal deficits. LYMPHATICS: No lymph node felt in neck and axillae. SKIN: No rash. LABS: WBC 20, hemoglobin 12.7. Sodium 136. AST and ALT noted. ASSESSMENT: 1. Chest pain and shortness of breath with possible acute pulmonary embolism. 2. Atrial fibrillation with fast ventricular rate. 3. Recently diagnosed poorly differentiated adenocarcinoma of the right lung with brain and bone metastases. 4. Pericardial effusion. 5. Increased AST and ALT. 6. Troponin 0.293, indeterminate. 7. Increased WBC, possibly reactive. 8. Anemia with hemoglobin 12.7. 9. Thrombocytopenia. 10. History of hypertension. 11. History of degenerative joint disease. RECOMMENDATION AND DISCUSSION: In this 55-year-old gentleman who presented with multiple complex medical issues, we will monitor the patient closely, continue the current medication, continue the symptomatic treatment. I recommend to resume the home medication, IV heparin. The patient also had a. fib with a fast ventricular rate on admission. Will continue the Cardizem. Cardiology has been recommended. Otherwise, recommend cardiothoracic surgery evaluation also for the evaluation of the pericardial effusion which we compared with previously. Steroids have been added to the current regimen. Otherwise, We will continue the rest of the medications. Further recommendations to follow. See orders for details. Once again, the prognosis is guarded. I discussed with Dr. Bhakta. MARGOTH
[2016-10-15] MEDS: DOCUSATE 100 MG CAP PO SCH ×2 (13:59→23:34)
[2016-10-15 14:23] LABS: Appearance,Urine Clear (Clear); Bacteria,Urine Rare /hpf; Bilirubin,Urine Negative (Negative); Glucose,Urine (UA) Negative (Negative); Ketones,Urine Negative (Negative); Leukocyte Esterase,Urine Negative (Negative); Mucus,Urine Rare /hpf; Nitrite,Urine Negative (Negative); PH, Urine 5.5 (5.0-8.0); Particle Count 6449; Protein,Urine 1+ (Negative); RBC,Urine 3 /hpf (0-5); Specific Gravity,Urine 1.031 (1.001-1.035); Squamous Epithelial Cell,Urine <1 /hpf (0-4); UA Billing (MACRO vs. MICRO) MICRO; Urobilinogen,Urine <2.0 mg/dL (<2.0); WBC,Urine 1 /hpf (0-5)
--- NOTE | 2016-10-15 15:25 | P.GSCN ---
History of Present Illness Consult date: 10/14/16 Reason for Consult: Pericardial effusion, surgical recommendations. Requesting physician: Jose Alberto Mandel History of present illness: This 55-year-old gentleman with a recent diagnosis of non-small cell lung cancer with metastasis to the brain who has completed all but one radiation treatment and was to start chemotherapy next week presented to the emergency room with complaints of chest pain. He was found to be in atrial fibrillation with rapid ventricular response, Cardizem and heparin drips were started, the patient was given morphine, and his chest pain did resolve as well as he converted to sinus bradycardia. He had a CTA of the chest which demonstrated pulmonary embolism, mild burden on the right involving lower lobar, segmental, and subsegmental branches as well as a tiny branch point embolus in the left base. In addition, there is a moderate to large pericardial effusion measuring up to 2.5 centimeters thick. This gentleman had a CT of the chest a month ago which also demonstrated a pericardial effusion, at that time measuring 1 cm. Due to the increasing size Dr. Christensen from cardiothoracic surgery was consulted regarding surgical recommendations. Review of Systems 14 point review of systems was completed and was negative except as noted. - Cardiovascular Reports as per HPI, Reports chest pain Past Medical History Past Medical History: Cancer, Hypertension, Osteoarthritis (OA) Additional Past Medical History / Comment(s): Metastatic adenocarcinoma of the lung with PAINTER SPRING metastases diagnosed in September 2016, completing brain radiation, pericardial effusion History of Any Multi-Drug Resistant Organisms: None Reported Past Surgical History: Hernia Repair, Orthopedic Surgery Additional Past Surgical History / Comment(s): 09/15/16 bronchoscopy with bx, left ankle plate and screws, R inguinal hernia repair. Past Anesthesia/Blood Transfusion Reactions: No Reported Reaction Past Psychological History: No Psychological Hx Reported Additional Psychological History / Comment(s): Pt resides with his spouse. He is independent. He is not driving at present, family takes him to [place]. Smoking Status: Former smoker Past Alcohol Use History: None Reported Additional Past Alcohol Use History / Comment(s): Pt states he recently quit smoking in May 2016. He smoked for 35 yrs. Past Drug Use History: Marijuana Additional Drug Use History / Comment(s): Pt quit smoking marijuana recently. He normally would smoke 1 joint or less a day. - Past Family History Father Family Medical History: Pneumonia Additional Family Medical History / Comment(s): Father was a WWII and had numerous injuries/surgeries from that. He at 76yrs from pneumonia Mother Family Medical History: Cancer Additional Family Medical History / Comment(s): Mother of some form of cancer when pt was 5 yrs old. Medications and Allergies Home Medications Medication Instructions Recorded Confirmed Type Hydrochlorothiazide [Hydrodiuril] 25 mg PO DAILY 09/14/16 10/14/16 History ALPRAZolam [Xanax] 0.25 mg PO BID 10/14/16 10/14/16 History Albuterol Inhaler [Ventolin Hfa 2 puff PO Q4H PRN 10/14/16 10/14/16 History Inhaler] Dexamethasone [Hexadrol] 4 mg PO TID 10/14/16 10/14/16 History Omeprazole [PriLOSEC] 20 mg PO DAILY 10/14/16 10/14/16 History Allergies Allergy/AdvReac Type Severity Reaction Status Date / Time No Known Allergies Allergy Verified 10/14/16 10:48 Surgical - Exam Vital Signs Pulse Resp BP Pulse Ox 113 H 18 166/87 97 10/14/16 10:03 10/14/16 10:03 10/14/16 10:03 10/14/16 10:03 - General well developed, well nourished, no distress, no pain - Eyes PERRL, normal ocular movement - Neck trachea midline - Respiratory Respirations even, nonlabored. He is currently on 2 L nasal cannula with oxygen saturation 96%. normal expansion, normal respiratory effort, clear to auscultation - Cardiovascular Sinus bradycardia on telemetry. Rhythm: regular Heart Sounds: normal: S1, S2 - Abdomen Abdomen: soft, non tender, bowel sounds - Genitourinary Deferred - Rectum Deferred - Integumentary no rash - Neurologic normal coordination, normal sensation - Musculoskeletal normal gait - Psychiatric oriented to time, oriented to person, oriented to place, speech is normal, memory intact Results - Labs 10/15/16 02:57 10/14/16 10:09 Abnormal Lab Results - Last 24 Hours (Table) 10/14/16 10/14/16 10/15/16 Range/Units 18:26 20:28 01:07 WBC (3.8-10.6) k/uL RBC (4.30-5.90) m/uL Hgb (13.0-17.5) gm/dL Hct (39.0-53.0) % Plt Count (150-450) k/uL Neutrophils # (1.3-7.7) k/uL Lymphocytes # (1.0-4.8) k/uL APTT 76.8 H (22.0-30.0) sec POC Glucose (mg/dL) 150 H (75-99) mg/dL CK-MB (CK-2) 27.7 H* (0.0-2.4) ng/mL Troponin I 4.170 H* (0.000-0.034) ng/mL Urine Protein (Negative) Urine Blood (Negative) Urine Bacteria (None) /hpf Urine Mucus (None) /hpf Urine Yeast (Budding) (None) /hpf 10/15/16 10/15/16 10/15/16 Range/Units 02:57 02:57 02:57 WBC 21.1 H (3.8-10.6) k/uL RBC 3.89 L (4.30-5.90) m/uL Hgb 12.0 L (13.0-17.5) gm/dL Hct 37.2 L (39.0-53.0) % Plt Count 91 L (150-450) k/uL Neutrophils # 19.8 H (1.3-7.7) k/uL Lymphocytes # 0.3 L (1.0-4.8) k/uL APTT 51.4 H (22.0-30.0) sec POC Glucose (mg/dL) (75-99) mg/dL CK-MB (CK-2) 34.4 H* (0.0-2.4) ng/mL Troponin I 11.000 H* (0.000-0.034) ng/mL Urine Protein (Negative) Urine Blood (Negative) Urine Bacteria (None) /hpf Urine Mucus (None) /hpf Urine Yeast (Budding) (None) /hpf 10/15/16 10/15/16 Range/Units 06:03 14:00 WBC (3.8-10.6) k/uL RBC (4.30-5.90) m/uL Hgb (13.0-17.5) gm/dL Hct (39.0-53.0) % Plt Count (150-450) k/uL Neutrophils # (1.3-7.7) k/uL Lymphocytes # (1.0-4.8) k/uL APTT (22.0-30.0) sec POC Glucose (mg/dL) 139 H (75-99) mg/dL CK-MB (CK-2) (0.0-2.4) ng/mL Troponin I (0.000-0.034) ng/mL Urine Protein 1+ H (Negative) Urine Blood Moderate H (Negative) Urine Bacteria Rare H (None) /hpf Urine Mucus Rare H (None) /hpf Urine Yeast (Budding) Rare H (None) /hpf - Imaging Chest x-ray: image reviewed CT scan - chest: image reviewed Assessment and Plan (1) Atrial fibrillation with RVR Status: Acute (2) Chest pain Status: Acute (3) Lung cancer, primary, with metastasis from lung to other site Status: Acute (4) Mass of right lung Status: Acute (5) Pericardial effusion Status: Acute (6) Pulmonary embolism Status: Acute (7) Hypertension Status: Acute Plan: The patient was seen and examined. Chart/diagnostics were reviewed. The case was discussed with Dr. Christensen. The patient has no evidence of tamponade physiology at this point in time. He is in no acute distress. We have no plans for surgical intervention at this time. Would continue to monitor. Your medical management. Thank you for this consult. Please feel free to contact us with any questions. Time with Patient: Greater than 30
--- NOTE | 2016-10-15 17:30 | ECHOF ---
Referral Reason:effusion MEASUREMENTS -------- HEIGHT: 152.4 cm WEIGHT: 75.8 kg BP: FINDINGS -------- Pt had complete Echo 09/29/16 for Pericardial Effusion, Limited Echo to follow up for PE. There is a large, generalized pericardial effusion present. There is no evidence of cardiac tamponade. CONCLUSIONS -------- 1. Pt had complete Echo 09/29/16 for Pericardial Effusion, Limited Echo to follow up for PE. 2. There is a large, generalized pericardial effusion present. 3. There is no evidence of cardiac tamponade. REPRODUCTIVE HEALTHCARE ASSISTANT: Marisol Buck RDCS
[2016-10-15] MEDS: HYDROcodone/APAP 5-325MG 1 EACH TAB PO PRN (18:35)
[2016-10-15] MEDS: BISACODYL 5 MG TABLET.DR PO PRN (18:35)
[2016-10-15] MEDS ORDERED: DILTIAZEM 125 MG in SODIUM CHLORIDE 0.9% 100 ML IV SCH (19:00)
[2016-10-15] MEDS: METOPROLOL TARTRATE 12.5 MG TAB PO SCH (23:43)
[2016-10-16] MEDS: HYDROcodone/APAP 5-325MG 1 EACH TAB PO PRN ×2 (00:18→06:17)
[2016-10-16] MEDS ORDERED: DEXTROSE 5% IN WATER 100 ML with AMIODARONE 150 MG IV ONE (02:12)
[2016-10-16] MEDS: HEPARIN SODIUM,PORCINE/D5W PMX 25,000 UNIT in DEXTROSE/WATER 1 500ML.BAG IV SCH ×2 (03:04→21:40)
[2016-10-16] MEDS: AMIODARONE 450 MG in DEXTROSE 5% IN WATER 250 ML IV SCH ×4 (04:39→11:14)
[2016-10-16 05:51] LABS: Basophils % (A) 0 %; CH 31.5; CHCM 32.2; Eosinophils # (A) 0.4 k/uL (0-0.7); Eosinophils % (A) 2 %; HCT 38.8 % (39.0-53.0); HDW 2.18; HGB 12.4 gm/dL (13.0-17.5); Luc # (Auto) 0.14; Luc % (Auto) 1; Lymphocytes # (A) 0.5 k/uL (1.0-4.8); Lymphocytes % (A) 3 %; MCH 31.6 pg (25.0-35.0); MCHC 32.1 g/dL (31.0-37.0); MCV 98.4 fL (80.0-100.0); Macrocytosis Slight; Mean Platelet Volume 8.2; Monocytes # (A) 0.4 k/uL (0-1.0); Monocytes % (A) 2 %; Neutrophils # (A) 17.3 k/uL (1.3-7.7); Neutrophils % (A) 92 %; RBC 3.94 m/uL (4.30-5.90); RDW 15.3 % (11.5-15.5); WBC 18.7 k/uL (3.8-10.6); WBC (Perox) 18.85
[2016-10-16 06:01] LABS: Anion Gap 11 mmol/L; Blood Urea Nitrogen 40 mg/dL (9-20); Carbon Dioxide 19 mmol/L (22-30); Chloride 99 mmol/L (98-107); Glucose 152 mg/dL (74-99); Non-African American GFR(MDRD) >60 (>60 ml/min/1.73 sqM); Potassium 4.9 mmol/L (3.5-5.1); Sodium 129 mmol/L (137-145)
[2016-10-16] MEDS: PANTOPRAZOLE 40 MG TABLET PO SCH (06:56)
[2016-10-16] MEDS: ASPIRIN 325 MG TAB PO SCH (08:31)
[2016-10-16] MEDS: DOCUSATE 100 MG CAP PO SCH ×2 (08:31→21:35)
[2016-10-16] MEDS: HYDROCHLOROTHIAZIDE 25 MG TAB PO SCH (08:31)
[2016-10-16] MEDS: DEXAMETHASONE 4 MG TAB PO SCH ×2 (08:31→21:35)
[2016-10-16] MEDS: METOPROLOL TARTRATE 12.5 MG TAB PO SCH ×2 (08:31→21:34)
[2016-10-16] MEDS: ALPRAZolam 0.25 MG TAB PO SCH ×2 (08:32→21:39)
[2016-10-16] MEDS: BISACODYL 5 MG TABLET.DR PO PRN (08:32)
[2016-10-16] MEDS: IPRATROPIUM-ALBUTEROL 3 ML NEB INHALATION PRN ×2 (08:41→12:51)
--- NOTE | 2016-10-16 09:38 | P.PN ---
Subjective Principal diagnosis: Pericardial effusion This is a pleasant 55-year-old gentleman who was recently diagnosed with poorly differentiated adenocarcinoma the right lung, stage IV with involvement in the skeleton upper abdomen and brain metastasis and has been undergoing radiation, presented to the emergency department after developing acute onset of left-sided chest pain with associated shortness of breath and dizziness. Upon arrival he was found to be in atrial fibrillation with rapid ventricular response, initiated on Cardizem drip which is subsequently been discontinued due to bradycardia after converting to sinus rhythm. Also, d-dimer was found to be quite elevated and subsequently underwent CTA of the chest that showed tiny branch point embolus at the junction of the subsegmental branches in the basilar left lower lobe with larger pulmonary embolus extending within the right lower lobe pulmonary artery. The CT also showed enlarging right upper lobe mass as well as a new nodularity of the right adrenal gland that could represent progressive metastatic disease. Also found to have moderate to large pericardial effusion measuring up to 2.5 cm thick. The Echocardiogram was done, and it showed large pericardial effusion without any tamponade physiology. The thoracic surgery team was consulted and they felt that the patient is not at a stage where he to have pericardial window at this point. Objective - Vital Signs Vital signs: Vital Signs Temp 98 F 10/16/16 04:15 Pulse 52 L 10/16/16 08:57 Resp 18 10/16/16 04:15 BP 111/63 10/16/16 04:15 Pulse Ox 95 10/16/16 04:15 Intake & Output 10/15/16 10/16/16 10/16/16 18:59 06:59 18:59 Intake Total 494.112 526.989 200 Output Total 500 Balance -5.888 526.989 200 Weight 75.75 kg 76.7 kg Intake: Intake, IV Titration 294.112 526.989 Amount Diltiazem 125 mg In 16.333 Sodium Chloride 0.9% 100 ml @ 10 MG/HR 10 mls/hr IV .[id number] [facility] Rx#: [id number] Heparin Sodium,Porcine/ 294.112 510.656 D5w Pmx 25,000 unit In Dextrose/Water 1 500ml. bag @ 18 UNITS/KG/HR 27. 27 mls/hr IV .[id number] [facility] Rx#:[id number] Oral 200 200 Output: Urine 500 Other: Voiding Method Bedside Commode Urinal # Voids 2 # Bowel Movements 0 0 - Constitutional General appearance: Present: no acute distress - Respiratory Respiratory: bilateral: diminished - Cardiovascular Rhythm: regular Heart sounds: normal: S1, S2 - Labs CBC & Chem 7: 10/16/16 05:33 10/16/16 05:33 Labs: Abnormal Lab Results - Last 24 Hours (Table) 10/15/16 10/16/16 10/16/16 Range/Units 14:00 05:33 05:33 WBC 18.7 H (3.8-10.6) k/uL RBC 3.94 L (4.30-5.90) m/uL Hgb 12.4 L (13.0-17.5) gm/dL Hct 38.8 L (39.0-53.0) % Plt Count 112 L (150-450) k/uL Neutrophils # 17.3 H (1.3-7.7) k/uL Lymphocytes # 0.5 L (1.0-4.8) k/uL APTT 46.1 H (22.0-30.0) sec Sodium (137-145) mmol/L Carbon Dioxide (22-30) mmol/L BUN (9-20) mg/dL Glucose (74-99) mg/dL Calcium (8.4-10.2) mg/dL Urine Protein 1+ H (Negative) Urine Blood Moderate H (Negative) Urine Bacteria Rare H (None) /hpf Urine Mucus Rare H (None) /hpf Urine Yeast (Budding) Rare H (None) /hpf 10/16/16 Range/Units 05:33 WBC (3.8-10.6) k/uL RBC (4.30-5.90) m/uL Hgb (13.0-17.5) gm/dL Hct (39.0-53.0) % Plt Count (150-450) k/uL Neutrophils # (1.3-7.7) k/uL Lymphocytes # (1.0-4.8) k/uL APTT (22.0-30.0) sec Sodium 129 L (137-145) mmol/L Carbon Dioxide 19 L (22-30) mmol/L BUN 40 H (9-20) mg/dL Glucose 152 H (74-99) mg/dL Calcium 8.0 L (8.4-10.2) mg/dL Urine Protein (Negative) Urine Blood (Negative) Urine Bacteria (None) /hpf Urine Mucus (None) /hpf Urine Yeast (Budding) (None) /hpf Assessment and Plan Plan: This is a pleasant and 55-year-old gentleman with metastatic lung cancer who presented to the hospital with shortness of breath. He was diagnosed with a PE. Beside that he was found to have large pericardial effusion. Beside that the patient was in and out atrial fibrillation. Currently, he is feeling overall slightly better internal of shortness of breath. Hemodynamically, the blood pressure continues to be within normal limits and he is not hypotensive. He has been maintaining normal sinus mechanism on metoprolol as well as amiodarone. We'll continue following up with him. Continue the heparin IV for anticoagulation knowing the risk of pericardial bleeding.
[2016-10-16] MEDS: AMIODARONE 200 MG TAB PO SCH ×2 (11:14→21:33)
--- NOTE | 2016-10-16 12:44 | P.PN ---
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 The patient presented to the hospital with an acute onset left sided pleuritic chest pain. No hemoptysis. No pleurisy. No swelling lower extremities. No prior history of any DVTs or pulmonary embolism. No angina. No syncope. CT angios the chest was done and showed positive pulmonary embolism. There was a mild burden on the right involving the right lower lobe and segmental and a couple of subsegmental branches in the left lung base. In addition, there was an enlarging right upper lobe mass measuring 7.3 cm in size in addition to enlarging satellite nodules and lymphadenopathy. Nodularity measuring 1.9 cm in the right adrenal gland. Pericardial effusion is also seen and an echocardiogram is to follow to make sure there is no evidence of temponad. He states that his been in good condition. He had been eating well. No nausea. No vomiting. No emesis. No syncope. No cardiac arrhythmias On 10/15/2016 the patient is essentially the same. He denies having any chest pain. Still on IV heparin. Troponin peaked at 11.0. He also went into atrial fibrillation and he was started on Cardizem drip for rate control. Echocardiogram was done regarding the possibility of cardiac tamponade. Results are still pending for now. Meanwhile, ultrasound of the abdomen was also done and there is nonspecific mild gallbladder wall thickening. No ascites. No findings to suggest acute cholecystitis. There is a small right- sided pleural effusion. Doppler of the lower extremities also negative. On 10/16/2016 the patient is being seen in follow-up. The patient is doing well. No specific complaints. Able to sit up on a chair. Echocardiogram was completed and that is no evidence of any cardiac component. The patient however has a large pericardial effusion which could be potentially malignant. Still on IV heparin. Amiodarone his oral 200 mg by mouth twice a day. Patient is also on metoprolol for rate control. Tolerating diet. Will be considered for oral anticoagulation with the next 24 hours. No hemoptysis. No pleurisy. Objective - Vital Signs Vital signs: Vital Signs Temp 97 F L 10/16/16 08:00 Pulse 52 L 10/16/16 08:57 Resp 18 10/16/16 08:00 BP 133/63 10/16/16 08:00 Pulse Ox 96 10/16/16 08:00 Intake & Output 10/15/16 10/16/16 10/16/16 18:59 06:59 18:59 Intake Total 494.112 526.989 200 Output Total 500 Balance -5.888 526.989 200 Weight 75.75 kg 76.7 kg Intake: Intake, IV Titration 294.112 526.989 Amount Diltiazem 125 mg In 16.333 Sodium Chloride 0.9% 100 ml @ 10 MG/HR 10 mls/hr IV .[id number] [facility] Rx#: [id number] Heparin Sodium,Porcine/ 294.112 510.656 D5w Pmx 25,000 unit In Dextrose/Water 1 500ml. bag @ 18 UNITS/KG/HR 27. 27 mls/hr IV .[id number] [facility] Rx#:[id number] Oral 200 200 Output: Urine 500 Other: Voiding Method Bedside Commode Urinal # Voids 2 # Bowel Movements 0 0 - Exam Head exam was generally normal. There was no scleral icterus or corneal arcus. Mucous membranes were moist.Neck was supple and without jugular venous distension, thyromegaly, or carotid bruits. Carotids were easily palpable bilaterally. There was no adenopathy. Lung sounds are diminished bilaterally otherwise clear.Cardiac exam revealed the PMI to be normally situated and sized. The rhythm was regular and no extrasystoles were noted during several minutes of auscultation. The first and second heart sounds were normal and physiologic splitting of the second heart sound was noted. There were no murmurs , rubs, clicks, or gallops. Abdomen is slightly distended soft. No ascites. No direct tenderness rebound tensile guarding.Examination of the extremities revealed easily palpable radial, femoral and pedal pulses. There was no cyanosis , clubbing or edema. - Labs CBC & Chem 7: 10/16/16 05:33 10/16/16 05:33 Labs: Abnormal Lab Results - Last 24 Hours (Table) 10/15/16 10/16/16 10/16/16 Range/Units 14:00 05:33 05:33 WBC 18.7 H (3.8-10.6) k/uL RBC 3.94 L (4.30-5.90) m/uL Hgb 12.4 L (13.0-17.5) gm/dL Hct 38.8 L (39.0-53.0) % Plt Count 112 L (150-450) k/uL Neutrophils # 17.3 H (1.3-7.7) k/uL Lymphocytes # 0.5 L (1.0-4.8) k/uL APTT 46.1 H (22.0-30.0) sec Sodium (137-145) mmol/L Carbon Dioxide (22-30) mmol/L BUN (9-20) mg/dL Glucose (74-99) mg/dL Calcium (8.4-10.2) mg/dL Urine Protein 1+ H (Negative) Urine Blood Moderate H (Negative) Urine Bacteria Rare H (None) /hpf Urine Mucus Rare H (None) /hpf Urine Yeast (Budding) Rare H (None) /hpf 10/16/16 Range/Units 05:33 WBC (3.8-10.6) k/uL RBC (4.30-5.90) m/uL Hgb (13.0-17.5) gm/dL Hct (39.0-53.0) % Plt Count (150-450) k/uL Neutrophils # (1.3-7.7) k/uL Lymphocytes # (1.0-4.8) k/uL APTT (22.0-30.0) sec Sodium 129 L (137-145) mmol/L Carbon Dioxide 19 L (22-30) mmol/L BUN 40 H (9-20) mg/dL Glucose 152 H (74-99) mg/dL Calcium 8.0 L (8.4-10.2) mg/dL Urine Protein (Negative) Urine Blood (Negative) Urine Bacteria (None) /hpf Urine Mucus (None) /hpf Urine Yeast (Budding) (None) /hpf Assessment and Plan Plan: Assessment 1 acute pulmonary embolism with secondary shortness of breath and pleuritic chest pain, currently on IV heparin. Patient has metastatic lung cancer and the patient is currently being treated with brain radiation and systemic chemotherapy is to follow. As such he has probably an underlying hypercoagulability related to his metastatic lung cancer 2 metastatic adenocarcinoma of the lung with HEEL SEAT [employer]TER MACHINE involvement. The patient also has metastases to the bone and probably adrenal glands. A malignant pericardial effusion is also suspected. Completed brain radiation 3 HEEL SE[employer] M[employer]INE metastases, completed radiation 4 pericardial effusion without any clinical signs of cardiac tamponade based on echocardiogram results 5 thrombocytopenia 6 acute non-STEMI 7 new-onset atrial fibrillation currently oral amiodarone 200 mg by mouth twice a day metoprolol 12.5 mg twice a day. Echocardiogram was noted. Plan Continue IV heparin. Monitor platelet counts. Monitor hemoglobin. Long-term prognosis poor as mentioned. CODE STATUS is to be established. I have already initiated a conversation with him regarding his CODE STATUS. Meanwhile if stable he can be switched to oral anticoagulation probably the next 24 hours. We'll continue to follow.
--- NOTE | 2016-10-16 17:23 | PN ---
DATE OF SERVICE: 10/15/2016 This 54-year-old gentleman was admitted with chest pain and found to have acute pulmonary embolism, is closely monitored. The patient had atrial fibrillation with fast ventricular rate. The patient also had poorly differentiated adenocarcinoma recently diagnosed status post chemo and radiation. The patient also had a pericardial effusion at this time. The patient was also seen by Dr. Mims who recommended to continue the IV heparin. Malignant pleural effusion also suspected. The patient was seen by cardiology and the 2D echo is pending at this time. Cardiothoracic surgery saw the patient and recommended no plans for surgical intervention because the patient is not in any distress due to the pericardial effusion or any evidence of tamponade is also noted. PAST MEDICAL HISTORY: Reviewed. REVIEW OF SYSTEMS: CARDIOVASCULAR: As mentioned earlier. RESPIRATORY: As mentioned earlier. GI: No nausea. : No dysuria. NERVOUS SYSTEM: Diffusely weak. Current medication reviewed and include: 1. DuoNeb q.i.d. and p.r.n. 2. Xanax 0.5 b.i.d. 3. Aspirin 325 mg daily. 4. Hexadrol 4 mg b.i.d. 5. Colace. 6. Heparin. 7. IV drip. 8. HydroDIURIL 25 mg p.o. daily. 9. Dilaudid 0.4 mg q4 p.r.n. 10. Protonix 40 mg. 11. Tigan 200 mg t.i.d. PHYSICAL EXAMINATION: Alert and oriented x3. Pulse 58, blood pressure 157/83, respirations 18, temperature 97 degrees, pulse ox 94% on 2 liters. HEENT: Conjunctivae normal. NECK: No jugular venous distention. CARDIOVASCULAR: S1/.S2. RESPIRATIONS: Diminished breath sounds,.especially in the bases. A few scattered rhonchi. No crackles. ABDOMEN: Soft, nontender. No mass palpable. LEGS: No edema, no swelling. NERVOUS SYSTEM: No focal deficits. LABS: WBC 21.1, hemoglobin 12. Troponin 11. ASSESSMENT: 1. Chest pain, shortness of breath, possible acute pulmonary embolism. 2. Atrial fibrillation with fast ventricular rate. 3. 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 4. Pericardial effusion, possibly malignant. 5. Increased AST and ALT. 6. Troponin . 7. Increased WBC, possibly reactive. 8. Anemia, hemoglobin 12.7, anemia of chronic disease. 9. Thrombocytopenia. 10. History of hypertension. 11. History of degenerative joint disease. RECOMMENDATIONS AND DISCUSSION: Continue current medication, continue to monitor, continue symptomatic treatment. Continue IV heparin. Discussed with Dr. Mims. Guarded prognosis because of multiple complex medical issues. Further recommendations to follow. MTDD
[2016-10-17 06:07] LABS: Basophils % (A) 0 %; CH 31.7; Eosinophils # (A) 0.1 k/uL (0-0.7); Eosinophils % (A) 0 %; HCT 35.3 % (39.0-53.0); HDW 2.12; HGB 11.2 gm/dL (13.0-17.5); Luc # (Auto) 0.12; Luc % (Auto) 1; Lymphocytes # (A) 0.4 k/uL (1.0-4.8); Lymphocytes % (A) 2 %; MCH 30.8 pg (25.0-35.0); MCHC 31.8 g/dL (31.0-37.0); MCV 96.8 fL (80.0-100.0); Mean Platelet Volume 8.7; Monocytes # (A) 0.3 k/uL (0-1.0); Monocytes % (A) 2 %; Neutrophils # (A) 14.1 k/uL (1.3-7.7); Neutrophils % (A) 94 %; RBC 3.64 m/uL (4.30-5.90); RDW 14.8 % (11.5-15.5); WBC 14.9 k/uL (3.8-10.6); WBC (Perox) 14.95
[2016-10-17 06:12] LABS: Calcium 8.1 mg/dL (8.4-10.2); Potassium 4.8 mmol/L (3.5-5.1)
[2016-10-17] MEDS: PANTOPRAZOLE 40 MG TABLET PO SCH (07:03)
--- NOTE | 2016-10-17 09:26 | P.PN ---
Subjective Principal diagnosis: Pericardial effusion This is a pleasant 55-year-old gentleman who was recently diagnosed with poorly differentiated adenocarcinoma the right lung, stage IV with involvement in the skeleton upper abdomen and brain metastasis and has been undergoing radiation, presented to the emergency department after developing acute onset of left-sided chest pain with associated shortness of breath and dizziness. Upon arrival he was found to be in atrial fibrillation with rapid ventricular response, initiated on Cardizem drip which is subsequently been discontinued due to bradycardia after converting to sinus rhythm. Also, d-dimer was found to be quite elevated and subsequently underwent CTA of the chest that showed tiny branch point embolus at the junction of the subsegmental branches in the basilar left lower lobe with larger pulmonary embolus extending within the right lower lobe pulmonary artery. The CT also showed enlarging right upper lobe mass as well as a new nodularity of the right adrenal gland that could represent progressive metastatic disease. Also found to have moderate to large pericardial effusion measuring up to 2.5 cm thick. The Echocardiogram was done, and it showed large pericardial effusion without any tamponade physiology. The thoracic surgery team was consulted and they felt that the patient is not at a stage where he to have pericardial window at this point. Clinically the patient is feeling slightly better. He continues to be in a sinus rhythm and sinus bradycardia. He continues to be on heparin IV and we will start him on oral anticoagulation in the next 24 hours. Also I repeat the echocardiogram only limited echo to assess the amount of pericardial effusion. Objective - Vital Signs Vital signs: Vital Signs Temp 96.7 F L 10/17/16 04:00 Pulse 53 L 10/17/16 04:00 Resp 18 10/17/16 04:00 BP 138/86 10/17/16 04:00 Pulse Ox 96 10/17/16 04:00 Intake & Output 10/16/16 10/17/16 10/17/16 18:59 06:59 18:59 Intake Total 860 798.685 Output Total 500 Balance 860 298.685 Weight 78.5 kg Intake: IV 376 0.9 NS @ 20ml/hr 160 Heparin Sodium,Porcine/ 216 D5w Pmx 25,000 unit In Dextrose/Water 1 500ml. bag @ 18 UNITS/KG/HR 27. 27 mls/hr IV .[id number] [facility] Rx#:[id number] Intake, IV Titration 180 422.685 Amount Dextrose 5% in Water 100 180 ml @ 618 mls/hr IV .Q10M ONE with Amiodarone 150 mg Rx#:[id number] Heparin Sodium,Porcine/ 422.685 D5w Pmx 25,000 unit In Dextrose/Water 1 500ml. bag @ 18 UNITS/KG/HR 27. 27 mls/hr IV .[id number] [facility] Rx#:[id number] Oral 680 Output: Urine 500 Other: Voiding Method Bedside Commode Urinal - Constitutional General appearance: Present: no acute distress - Respiratory Respiratory: bilateral: diminished - Cardiovascular Rhythm: regular Heart sounds: normal: S1, S2 - Labs CBC & Chem 7: 10/17/16 05:41 10/17/16 05:38 Labs: Abnormal Lab Results - Last 24 Hours (Table) 10/17/16 10/17/16 10/17/16 Range/Units 05:38 05:41 05:41 WBC 14.9 H (3.8-10.6) k/uL RBC 3.64 L (4.30-5.90) m/uL Hgb 11.2 L (13.0-17.5) gm/dL Hct 35.3 L (39.0-53.0) % Plt Count 112 L (150-450) k/uL Neutrophils # 14.1 H (1.3-7.7) k/uL Lymphocytes # 0.4 L (1.0-4.8) k/uL APTT 52.0 H (22.0-30.0) sec Sodium 128 L (137-145) mmol/L Chloride 94 L (98-107) mmol/L Carbon Dioxide 21 L (22-30) mmol/L BUN 64 H (9-20) mg/dL Creatinine 1.70 H (0.66-1.25) mg/dL Glucose 116 H (74-99) mg/dL Calcium 8.1 L (8.4-10.2) mg/dL Assessment and Plan Plan: This is a pleasant and 55-year-old gentleman with metastatic lung cancer who presented to the hospital with shortness of breath. He was diagnosed with a PE. Beside that he was found to have large pericardial effusion. Beside that the patient was in and out atrial fibrillation. Currently, he is feeling overall slightly better internal of shortness of breath. Hemodynamically, the blood pressure continues to be within normal limits and he is not hypotensive. He has been maintaining normal sinus mechanism on metoprolol as well as amiodarone. We'll continue following up with him. Continue the heparin IV for anticoagulation knowing the risk of pericardial bleeding.
[2016-10-17] MEDS: METOPROLOL TARTRATE 12.5 MG TAB PO SCH ×2 (09:35→20:19)
[2016-10-17] MEDS: DOCUSATE 100 MG CAP PO SCH ×2 (09:36→20:19)
[2016-10-17] MEDS: DEXAMETHASONE 4 MG TAB PO SCH ×2 (09:36→20:19)
[2016-10-17] MEDS: HYDROCHLOROTHIAZIDE 25 MG TAB PO SCH (09:36)
[2016-10-17] MEDS: ALPRAZolam 0.25 MG TAB PO SCH ×2 (09:36→20:20)
[2016-10-17] MEDS: ASPIRIN 325 MG TAB PO SCH (09:36)
[2016-10-17] MEDS: AMIODARONE 200 MG TAB PO SCH ×2 (09:36→20:19)
--- NOTE | 2016-10-17 13:43 | P.PN ---
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 The patient presented to the hospital with an acute onset left sided pleuritic chest pain. No hemoptysis. No pleurisy. No swelling lower extremities. No prior history of any DVTs or pulmonary embolism. No angina. No syncope. CT angios the chest was done and showed positive pulmonary embolism. There was a mild burden on the right involving the right lower lobe and segmental and a couple of subsegmental branches in the left lung base. In addition, there was an enlarging right upper lobe mass measuring 7.3 cm in size in addition to enlarging satellite nodules and lymphadenopathy. Nodularity measuring 1.9 cm in the right adrenal gland. Pericardial effusion is also seen and an echocardiogram is to follow to make sure there is no evidence of temponad. He states that his been in good condition. He had been eating well. No nausea. No vomiting. No emesis. No syncope. No cardiac arrhythmias On 10/15/2016 the patient is essentially the same. He denies having any chest pain. Still on IV heparin. Troponin peaked at 11.0. He also went into atrial fibrillation and he was started on Cardizem drip for rate control. Echocardiogram was done regarding the possibility of cardiac tamponade. Results are still pending for now. Meanwhile, ultrasound of the abdomen was also done and there is nonspecific mild gallbladder wall thickening. No ascites. No findings to suggest acute cholecystitis. There is a small right- sided pleural effusion. Doppler of the lower extremities also negative. On 10/16/2016 the patient is being seen in follow-up. The patient is doing well. No specific complaints. Able to sit up on a chair. Echocardiogram was completed and that is no evidence of any cardiac component. The patient however has a large pericardial effusion which could be potentially malignant. Still on IV heparin. Amiodarone his oral 200 mg by mouth twice a day. Patient is also on metoprolol for rate control. Tolerating diet. Will be considered for oral anticoagulation with the next 24 hours. No hemoptysis. No pleurisy. Reevaluated on 10/17/2016, overall the patient is doing well, had few episodes of blood-tinged sputum/hemoptysis. Clinically patient is denying any shortness of breath, no chest pain, no fever, no chills, remains on multiple meds as listed, remains on heparin. Labs were reviewed, PTT is therapeutic. PTT is 52 electrolytes were reviewed BUN is 64 creatinine is 1.70 WBC count is 14.9 hemoglobin is 11.2. Troponin is 11. Objective - Vital Signs Vital signs: Vital Signs Temp 96.3 F L 10/17/16 11:33 Pulse 59 L 10/17/16 11:33 Resp 20 10/17/16 11:33 BP 123/77 10/17/16 11:33 Pulse Ox 96 10/17/16 11:33 Intake & Output 10/16/16 10/17/16 10/17/16 18:59 06:59 18:59 Intake Total 860 798.685 Output Total 500 Balance 860 298.685 Weight 78.5 kg Intake: IV 376 0.9 NS @ 20ml/hr 160 Heparin Sodium,Porcine/ 216 D5w Pmx 25,000 unit In Dextrose/Water 1 500ml. bag @ 18 UNITS/KG/HR 27. 27 mls/hr IV .[id number] [facility] Rx#:[id number] Intake, IV Titration 180 422.685 Amount Dextrose 5% in Water 100 180 ml @ 618 mls/hr IV .Q10M [facility] with Amiodarone 150 mg Rx#:[id number] Heparin Sodium,Porcine/ 422.685 D5w Pmx 25,000 unit In Dextrose/Water 1 500ml. bag @ 18 UNITS/KG/HR 27. 27 mls/hr IV .[id number] [facility] Rx#:[id number] Oral 680 Output: Urine 500 Other: Voiding Method Bedside Commode Urinal - Exam Head exam was generally normal. There was no scleral icterus or corneal arcus. Mucous membranes were moist.Neck was supple and without jugular venous distension, thyromegaly, or carotid bruits. Carotids were easily palpable bilaterally. There was no adenopathy. Lung sounds are diminished bilaterally otherwise clear.Cardiac exam revealed the PMI to be normally situated and sized. The rhythm was regular and no extrasystoles were noted during several minutes of auscultation. The first and second heart sounds were normal and physiologic splitting of the second heart sound was noted. There were no murmurs , rubs, clicks, or gallops. Abdomen is slightly distended soft. No ascites. No direct tenderness no rebound, no guarding.Examination of the extremities revealed easily palpable radial, femoral and pedal pulses. There was no cyanosis , clubbing or edema. - Labs CBC & Chem 7: 10/17/16 05:41 10/17/16 05:38 Labs: Abnormal Lab Results - Last 24 Hours (Table) 10/17/16 10/17/16 10/17/16 Range/Units 05:38 05:41 05:41 WBC 14.9 H (3.8-10.6) k/uL RBC 3.64 L (4.30-5.90) m/uL Hgb 11.2 L (13.0-17.5) gm/dL Hct 35.3 L (39.0-53.0) % Plt Count 112 L (150-450) k/uL Neutrophils # 14.1 H (1.3-7.7) k/uL Lymphocytes # 0.4 L (1.0-4.8) k/uL APTT 52.0 H (22.0-30.0) sec Sodium 128 L (137-145) mmol/L Chloride 94 L (98-107) mmol/L Carbon Dioxide 21 L (22-30) mmol/L BUN 64 H (9-20) mg/dL Creatinine 1.70 H (0.66-1.25) mg/dL Glucose 116 H (74-99) mg/dL Calcium 8.1 L (8.4-10.2) mg/dL Assessment and Plan Plan: 1 acute pulmonary embolism with secondary shortness of breath and pleuritic chest pain, currently on IV heparin. Patient has metastatic lung cancer and the patient is currently being treated with brain radiation and systemic chemotherapy is to follow. 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 The patient also has metastases to the bone and probably adrenal glands. A malignant pericardial effusion is also suspected. Completed brain radiation 3 FACILITY OPER[employer] MANAGER metastases, completed radiation 4 pericardial effusion without any clinical signs of cardiac tamponade based on echocardiogram results 5 thrombocytopenia 6 acute non-STEMI 7 new-onset atrial fibrillation currently oral amiodarone 200 mg by mouth twice a day metoprolol 12.5 mg twice a day. Echocardiogram was noted. 8 intermittent episodes of hemoptysis, could be related to his underlying lung cancer could also be related to his underlying pulmonary embolism. Continue to monitor until coagulation therapy, I believe the benefits of the treatment outweigh the risks at this point. However if his condition gets any worse, may have to consider a filter placement. Recommendation: Continue to monitor, discussed his condition with family at bedside, made aware that prognosis is extremely poor, and most likely he will not make it beyond 3 months. To 6 months. Time with Patient: Less than 30
--- NOTE | 2016-10-17 14:36 | PN ---
DATE OF SERVICE: 10/16/2016 This 55-year-old gentleman was admitted with chest pain, also had features of acute pulmonary embolism, features of atrial fibrillation as well as ( ) the patient also had pericardial effusion also. The patient has been closely monitored. Multiple consultants are following the patient closely. Abdominal ultrasound was also done which showed right pleural effusion, nonspecific mild gallbladder thickening. PAST MEDICAL HISTORY: Reviews. REVIEW OF SYSTEMS; CARDIOVASCULAR: No angina and palpitation. RESPIRATORY: As mentioned earlier. GI: As mentioned earlier. : No dysuria. NERVOUS SYSTEM: No numbness or weakness. Current medications are reviewed that include Termo 5 mg q.6 p.r.n., Atrovent q.i.d. and p.r.n., Xanax 0.5 b.i.d., Cordarone 200 mg p.o. b.i.d., aspirin 325 mg daily, Hexadrol, Colace, heparin, Hydrodiuril, Lopressor, Protonix, Tigan. PHYSICAL EXAM: Patient is alert and oriented x3. Pulse is 55, blood pressure 111/55, respirations 18, temperature is 97.2, pulse ox 100% on 2 L. HEENT: Conjunctivae normal. NECK: No jugular venous distension. CARDIOVASCULAR SYSTEM: S1, S2, muffled. RESPIRATORY: Breath sounds diminished at the bases, a few scattered rhonchi, no crackles. ABDOMEN: Soft, nontender. LEGS: No edema, no swelling. NERVOUS SYSTEM: No focal deficits. LABS: At this time shows WBC 18.7, hemoglobin is 12.4, sodium 129. ASSESSMENT: 1. Chest pain, shortness of breath, possibly acute pulmonary embolism. 2. Atrial fibrillation with fast ventricular rate, present on admission. 3. 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 4. Pericardial effusion, possibly malignant. 5. Increased AST, ALT. 6. Increased WBC, possibly reactive. 7. Anemia of chronic disease. RECOMMENDATION: Recommend to continue with the current medication, continue with the symptomatic treatment. Otherwise at this time I would recommend to continue with the IV heparin. Continue the rest of the medications. Prognosis guarded. Closely follow with Dr. Mims. Guarded prognosis. Further recommendations to follow. Discussed with the family at length. The patient is currently NO CODE, NO CPR, NO VENT. Dr. Mims is hospice care as well. [facility]
[2016-10-17] MEDS: IPRATROPIUM-ALBUTEROL 3 ML NEB INHALATION PRN ×2 (15:26→19:14)
[2016-10-17] MEDS: HEPARIN SODIUM,PORCINE/D5W PMX 25,000 UNIT in DEXTROSE/WATER 1 500ML.BAG IV SCH (15:51)
[2016-10-17] MEDS: HYDROcodone/APAP 5-325MG 1 EACH TAB PO PRN (17:21)
[2016-10-17] MEDS: DILTIAZEM 125 MG in SODIUM CHLORIDE 0.9% 100 ML IV SCH (23:54)
[2016-10-18] MEDS: PANTOPRAZOLE 40 MG TABLET PO SCH (07:13)
[2016-10-18 07:26] LABS: Anion Gap 15 mmol/L; Blood Urea Nitrogen 79 mg/dL (9-20); Carbon Dioxide 17 mmol/L (22-30); Chloride 95 mmol/L (98-107); Glucose 134 mg/dL (74-99); Non-African American GFR(MDRD) 53 (>60 ml/min/1.73 sqM); Sodium 127 mmol/L (137-145)
[2016-10-18 08:10] LABS: Basophils % (A) 0 %; CH 30.5; CHCM 32.2; Eosinophils % (A) 0 %; HDW 2.16; HGB 11.5 gm/dL (13.0-17.5); Luc # (Auto) 0.18; Luc % (Auto) 1; Lymphocytes # (A) 0.4 k/uL (1.0-4.8); Lymphocytes % (A) 3 %; MCH 31.5 pg (25.0-35.0); MCV 95.4 fL (80.0-100.0); Monocytes # (A) 0.4 k/uL (0-1.0); Monocytes % (A) 3 %; Neutrophils # (A) 13.3 k/uL (1.3-7.7); Neutrophils % (A) 93 %; RBC 3.67 m/uL (4.30-5.90); RDW 14.3 % (11.5-15.5); WBC 14.3 k/uL (3.8-10.6); WBC (Perox) 14.56
--- NOTE | 2016-10-18 08:28 | PN ---
DATE OF SERVICE: 10/17/2016 This 55-year-old gentleman was admitted with chest pain, also had features of pulmonary embolism and associated atrial fibrillation and pericardial effusion. Patient is being closely monitored. Patient is on IV heparin. No chest pain , no palpitation, no fever. On exam, alert and oriented x3. Pulse 52, blood pressure 128/69, respirations 20, temperature is 96.6, pulse ox 98% on 2 L. HEENT: Conjunctivae normal. NECK: No jugular venous distension. CARDIOVASCULAR SYSTEM: S1, S2, muffled. RESPIRATORY: Breath sounds diminished at the bases. A few rhonchi, no crackles. ABDOMEN: Soft, nontender. LEGS: No edema, no swelling. NERVOUS SYSTEM: No focal deficits. LABS: WBC is 14.9, hemoglobin is 11.2, sodium 128. ASSESSMENT: 1. Chest pain, shortness of breath, possibly acute pulmonary embolism. 2. Atrial fibrillation with fast ventricular rate, present on admission. 3. 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 4. Pericardial effusion, possibly malignant. 5. Increased AST, ALT. 6. Increased WBC, possibly reactive. 7. Anemia of chronic disease. RECOMMENDATION: Recommend to continue with the current medication, continue with the monitoring and symptomatic treatment. Otherwise will monitor the patient closely. The family is requesting consultation with Dr. Lee. I will continue to monitor. See orders for further details, prognosis guarded. MTDD
[2016-10-18] MEDS: HYDROCHLOROTHIAZIDE 25 MG TAB PO SCH (09:03)
[2016-10-18] MEDS: ASPIRIN 325 MG TAB PO SCH (09:03)
[2016-10-18] MEDS: DOCUSATE 100 MG CAP PO SCH ×2 (09:03→22:01)
[2016-10-18] MEDS: DEXAMETHASONE 4 MG TAB PO SCH ×2 (09:03→22:01)
[2016-10-18] MEDS: AMIODARONE 200 MG TAB PO SCH ×2 (09:03→22:00)
[2016-10-18] MEDS: ALPRAZolam 0.25 MG TAB PO SCH ×2 (09:03→22:03)
--- NOTE | 2016-10-18 09:57 | P.PN ---
Subjective Principal diagnosis: Pericardial effusion This is a pleasant 55-year-old gentleman who was recently diagnosed with poorly differentiated adenocarcinoma the right lung, stage IV with involvement in the skeleton upper abdomen and brain metastasis and has been undergoing radiation, presented to the emergency department after developing acute onset of left-sided chest pain with associated shortness of breath and dizziness. Upon arrival he was found to be in atrial fibrillation with rapid ventricular response, initiated on Cardizem drip which is subsequently been discontinued due to bradycardia after converting to sinus rhythm. Also, d-dimer was found to be quite elevated and subsequently underwent CTA of the chest that showed tiny branch point embolus at the junction of the subsegmental branches in the basilar left lower lobe with larger pulmonary embolus extending within the right lower lobe pulmonary artery. The CT also showed enlarging right upper lobe mass as well as a new nodularity of the right adrenal gland that could represent progressive metastatic disease. Also found to have moderate to large pericardial effusion measuring up to 2.5 cm thick. The Echocardiogram was done, and it showed large pericardial effusion without any tamponade physiology. The thoracic surgery team was consulted and they felt that the patient is not at a stage where he to have pericardial window at this point. The patient was doing better yesterday until last night when he went into an A. fib with RVR and was started on Cardizem drip and converted to normal sinus mechanism. Currently he is in sinus rhythm with heart rate in the 50s. I'm going to increase the dose of metoprolol as well as increase the dose of amiodarone. I will repeat the echocardiogram to assess for improvement in the pericardial effusion. Beside that I am going to start the patient on anticoagulation was, then. Objective - Vital Signs Vital signs: Vital Signs Temp 96.3 F L 10/17/16 20:00 Pulse 110 H 10/18/16 04:00 Resp 24 10/18/16 04:00 BP 142/84 10/18/16 04:00 Pulse Ox 96 10/18/16 09:36 Intake & Output 10/17/16 10/18/16 10/18/16 18:59 06:59 18:59 Intake Total 1071.859 776 Output Total 600 Balance 471.859 776 Weight 78.5 kg 78.5 kg Intake: IV 376 376 0.9 NS @ 20ml/hr 160 160 Heparin Sodium,Porcine/ 216 216 D5w Pmx 25,000 unit In Dextrose/Water 1 500ml. bag @ 18 UNITS/KG/HR 27. 27 mls/hr IV .[id number] [facility] Rx#:[id number] Intake, IV Titration 495.859 Amount Heparin Sodium,Porcine/ 495.859 D5w Pmx 25,000 unit In Dextrose/Water 1 500ml. bag @ 18 UNITS/KG/HR 27. 27 mls/hr IV .[id number] [facility] Rx#:[id number] Oral 200 400 Output: Urine 600 Other: Voiding Method Bedside Commode Urinal - Constitutional General appearance: Present: no acute distress - Respiratory Respiratory: left: CTA - Cardiovascular Rhythm: regular Heart sounds: normal: S1, S2 - Labs CBC & Chem 7: 10/18/16 06:31 10/18/16 06:31 Labs: Abnormal Lab Results - Last 24 Hours (Table) 10/18/16 10/18/16 10/18/16 Range/Units 06:31 06:31 09:07 WBC 14.3 H (3.8-10.6) k/uL RBC 3.67 L (4.30-5.90) m/uL Hgb 11.5 L (13.0-17.5) gm/dL Hct 35.0 L (39.0-53.0) % Plt Count 103 L (150-450) k/uL Neutrophils # 13.3 H (1.3-7.7) k/uL Lymphocytes # 0.4 L (1.0-4.8) k/uL APTT 39.2 H (22.0-30.0) sec Sodium 127 L (137-145) mmol/L Chloride 95 L (98-107) mmol/L Carbon Dioxide 17 L (22-30) mmol/L BUN 79 H (9-20) mg/dL Creatinine 1.40 H (0.66-1.25) mg/dL Glucose 134 H (74-99) mg/dL Calcium 8.0 L (8.4-10.2) mg/dL Assessment and Plan Plan: This is a pleasant and 55-year-old gentleman with metastatic lung cancer who presented to the hospital with shortness of breath. He was diagnosed with a PE. Beside that he was found to have large pericardial effusion. Beside that the patient was in and out atrial fibrillation. We'll increase the dose of metoprolol as well as amiodarone. Start the patient on anticoagulation with Coumadin. Obtain an echocardiogram limited to assess the pericardial effusion.
--- NOTE | 2016-10-18 10:43 | ECHOF ---
Referral Reason:pericardial effusion MEASUREMENTS -------- HEIGHT: 182.9 cm WEIGHT: 78.5 kg BP: FINDINGS -------- Sinus rhythm. Limited Study There is evidence of cardiac tamponade. Large global pericardial effusion CONCLUSIONS -------- 1. Sinus rhythm. 2. Limited Study 3. There is evidence of cardiac tamponade. 4. Large global pericardial effusion SAMPLE DISPLAY PREPARER: Romy Long RDCS
--- NOTE | 2016-10-18 11:33 | P.PCN ---
Date of Procedure: 10/18/16 Preoperative Diagnosis: large pericardial effusion, metastatic lung cancer Postoperative Diagnosis: 1400 cc bloody pericardial effusion Procedure(s) Performed: Percutaneous insertion of a pericardial drain under echo guidance Implants: Triple-lumen central line catheter Anesthesia: local Surgeon: James Christensen Estimated Blood Loss (ml): 0 Pathology: other (Pericardial fluid for cytology) Condition: stable Disposition: no change Indications for Procedure: Known metastatic lung cancer with increasing in size pericardial effusion with right atrial collapse Operative Findings: 1400 cc pericardi bloody effusion Description of Procedure: Risk benefits and alternative for the procedure were discussed with the patient and his and they agreed to proceed. Under aseptic technique and after securing local anesthesia using 10 mL of lidocaine 1% a finding needle established a pass to the pericardial effusion which was large. Under echo guidance and using a Seldinger technique a wire was placed in the pericardial space. The path was dilated and subsequently a triple-lumen catheter was inserted over the wire and the wire removed. Position of the catheter was confirmed by echo. We aspirated a total of around 1400 mL of dark bloody pericardial effusion. Specimen was sent for cytology. There was a trivial residual pericardial effusion on echo at the end. The catheter was secured to the skin with a suture. Patient tolerated procedure well.
--- NOTE | 2016-10-18 12:31 | P.PN ---
Subjective Principal diagnosis: Acute pulmonary embolism, metastatic lung cancer 55-year-old male patient with a known history of metastatic adenocarcinoma of the lung with [employer]ICER involvement, was about to complete brain radiation therapy and has not been initiated on systemic chemotherapy. The patient presented to the hospital with an acute onset left sided pleuritic chest pain. No hemoptysis. No pleurisy. No swelling lower extremities. No prior history of any DVTs or pulmonary embolism. No angina. No syncope. CT angios the chest was done and showed positive pulmonary embolism. There was a mild burden on the right involving the right lower lobe and segmental and a couple of subsegmental branches in the left lung base. In addition, there was an enlarging right upper lobe mass measuring 7.3 cm in size in addition to enlarging satellite nodules and lymphadenopathy. Nodularity measuring 1.9 cm in the right adrenal gland. Pericardial effusion is also seen and an echocardiogram is to follow to make sure there is no evidence of temponad. He states that his been in good condition. He had been eating well. No nausea. No vomiting. No emesis. No syncope. No cardiac arrhythmias On 10/15/2016 the patient is essentially the same. He denies having any chest pain. Still on IV heparin. Troponin peaked at 11.0. He also went into atrial fibrillation and he was started on Cardizem drip for rate control. Echocardiogram was done regarding the possibility of cardiac tamponade. Results are still pending for now. Meanwhile, ultrasound of the abdomen was also done and there is nonspecific mild gallbladder wall thickening. No ascites. No findings to suggest acute cholecystitis. There is a small right- sided pleural effusion. Doppler of the lower extremities also negative. On 10/16/2016 the patient is being seen in follow-up. The patient is doing well. No specific complaints. Able to sit up on a chair. Echocardiogram was completed and that is no evidence of any cardiac component. The patient however has a large pericardial effusion which could be potentially malignant. Still on IV heparin. Amiodarone his oral 200 mg by mouth twice a day. Patient is also on metoprolol for rate control. Tolerating diet. Will be considered for oral anticoagulation with the next 24 hours. No hemoptysis. No pleurisy. Reevaluated on 10/17/2016, overall the patient is doing well, had few episodes of blood-tinged sputum/hemoptysis. Clinically patient is denying any shortness of breath, no chest pain, no fever, no chills, remains on multiple meds as listed, remains on heparin. Labs were reviewed, PTT is therapeutic. PTT is 52 electrolytes were reviewed BUN is 64 creatinine is 1.70 WBC count is 14.9 hemoglobin is 11.2. Troponin is 11. On 10/18/2016, patient underwent ultrasound-guided pericardiocentesis for pericardial effusion with tamponade, 1400 ml of bloody effusion drained. Patient felt better since. Cytology on the pericardial effusion is pending, it is malignant unless proven otherwise. Labs were reviewed, PTT is 39.2. Renal profile is improving and his sodium is 127. Objective - Vital Signs Vital signs: Vital Signs Temp 97 F L 10/18/16 11:51 Pulse 42 L 10/18/16 11:51 Resp 20 10/18/16 11:51 BP 175/72 10/18/16 11:51 Pulse Ox 95 10/18/16 11:51 Intake & Output 10/17/16 10/18/16 10/18/16 18:59 06:59 18:59 Intake Total 1071.859 776 Output Total 600 1000 Balance 471.859 776 -1000 Weight 78.5 kg 78.5 kg Intake: IV 376 376 0.9 NS @ 20ml/hr 160 160 Heparin Sodium,Porcine/ 216 216 D5w Pmx 25,000 unit In Dextrose/Water 1 500ml. bag @ 18 UNITS/KG/HR 27. 27 mls/hr IV .[id number] [facility] Rx#:[id number] Intake, IV Titration 495.859 Amount Heparin Sodium,Porcine/ 495.859 D5w Pmx 25,000 unit In Dextrose/Water 1 500ml. bag @ 18 UNITS/KG/HR 27. 27 mls/hr IV .[id number] [facility] Rx#:[id number] Oral 200 400 Output: Urine 600 1000 Other: Voiding Method Bedside Commode Urinal - Exam Head exam was generally normal. There was no scleral icterus or corneal arcus. Mucous membranes were moist.Neck was supple and without jugular venous distension, thyromegaly, or carotid bruits. Carotids were easily palpable bilaterally. There was no adenopathy. Lung sounds are diminished bilaterally otherwise clear.Cardiac exam revealed the PMI to be normally situated and sized. The rhythm was regular and no extrasystoles were noted during several minutes of auscultation. The first and second heart sounds were normal and physiologic splitting of the second heart sound was noted. There were no murmurs , rubs, clicks, or gallops. Abdomen is slightly distended soft. No ascites. No direct tenderness no rebound, no guarding.Examination of the extremities revealed easily palpable radial, femoral and pedal pulses. There was no cyanosis , clubbing or edema. - Labs CBC & Chem 7: 10/18/16 06:31 10/18/16 06:31 Labs: Abnormal Lab Results - Last 24 Hours (Table) 10/18/16 10/18/16 10/18/16 Range/Units 06:31 06:31 09:07 WBC 14.3 H (3.8-10.6) k/uL RBC 3.67 L (4.30-5.90) m/uL Hgb 11.5 L (13.0-17.5) gm/dL Hct 35.0 L (39.0-53.0) % Plt Count 103 L (150-450) k/uL Neutrophils # 13.3 H (1.3-7.7) k/uL Lymphocytes # 0.4 L (1.0-4.8) k/uL APTT 39.2 H (22.0-30.0) sec Sodium 127 L (137-145) mmol/L Chloride 95 L (98-107) mmol/L Carbon Dioxide 17 L (22-30) mmol/L BUN 79 H (9-20) mg/dL Creatinine 1.40 H (0.66-1.25) mg/dL Glucose 134 H (74-99) mg/dL Calcium 8.0 L (8.4-10.2) mg/dL Assessment and Plan Plan: 1 acute pulmonary embolism with secondary shortness of breath and pleuritic chest pain, currently on IV heparin. Patient has metastatic lung cancer and the patient is currently being treated with brain radiation and systemic chemotherapy is to follow. As such he has probably an underlying hypercoagulability related to his metastatic lung cancer 2 metastatic adenocarcinoma of the lung with [employer] involvement. The patient also has metastases to the bone and probably adrenal glands. A malignant pericardial effusion is also suspected. Completed brain radiation 3 [employer] metastases, completed radiation 4 pericardial effusion with tamponade requiring pericardiocentesis on 2016. 5 thrombocytopenia 6 acute non-STEMI 7 new-onset atrial fibrillation currently oral amiodarone 200 mg by mouth twice a day metoprolol 12.5 mg twice a day. Echocardiogram was noted. 8 intermittent episodes of hemoptysis, could be related to his underlying lung cancer could also be related to his underlying pulmonary embolism. Continue to monitor until coagulation therapy, I believe the benefits of the treatment outweigh the risks at this point. However if his condition gets any worse, may have to consider a filter placement. 9 Recommendation: Continue to monitor, discussed his condition with family at bedside, made aware that prognosis is extremely poor, await results of the cytology from the pericardial effusion, again is suspected to be malignant unless proven otherwise. We'll continue to follow. Time with Patient: Less than 30
[2016-10-18] MEDS: HEPARIN SODIUM,PORCINE/D5W PMX 25,000 UNIT in DEXTROSE/WATER 1 500ML.BAG IV SCH (12:38)
[2016-10-18] MEDS: DILTIAZEM 125 MG in SODIUM CHLORIDE 0.9% 100 ML IV SCH (12:40)
[2016-10-18] MEDS: METOPROLOL TARTRATE 12.5 MG TAB PO SCH (12:41)
--- NOTE | 2016-10-18 16:27 | P.PN ---
Subjective Date of service 10/18/2016. Personal being dictated for Dr. Haji. Interval history: This is a 55-year-old gentleman admitted with acute pulmonary embolism, atrial fibrillation, recently diagnosed poorly differentiated adenocarcinoma right lung with brain and bone metastasis, pericardial effusion suspect malignancy and multiple other medical issues. Renal function improving. Sodium 127. Echo limited study, reporting evidence of cardiac tamponade, large global pericardial effusion. Underwent pericardiocentesis with 1400 MLS dark bloody drainage removed, cytology pending. Tolerated procedure well, states feels better post-procedure. Objective - Vital Signs Vital signs: Vital Signs Temp 97.1 F L 10/18/16 15:58 Pulse 40 L 10/18/16 15:58 Resp 20 10/18/16 15:58 BP 122/68 10/18/16 15:58 Pulse Ox 96 10/18/16 15:58 Intake & Output 10/17/16 10/18/16 10/18/16 18:59 06:59 18:59 Intake Total 1071.859 776 849 Output Total 600 2000 Balance 471.859 776 -1151 Weight 78.5 kg 78.5 kg Intake: IV 376 376 349 0.9 NS @ 20ml/hr 160 160 160 Heparin Sodium,Porcine/ 216 216 189 D5w Pmx 25,000 unit In Dextrose/Water 1 500ml. bag @ 18 UNITS/KG/HR 27. 27 mls/hr IV .[id number] [facility] Rx#:[id number] Intake, IV Titration 495.859 500 Amount Heparin Sodium,Porcine/ 495.859 500 D5w Pmx 25,000 unit In Dextrose/Water 1 500ml. bag @ 18 UNITS/KG/HR 27. 27 mls/hr IV .[id number] [facility] Rx#:[id number] Oral 200 400 Output: Urine 600 2000 Other: Voiding Method Bedside Commode Urinal - Exam PHYSICAL EXAM: VITAL SIGNS: As above GENERAL: [Eating up in bed, no acute distress] HEENT: [Pupils equal conjunctiva normal.] NECK: [Supple, no JVD] RESPIRATORY EFFORT:[ Increased] LUNGS: [Bilateral bases diminished, occasional scattered rhonchi, no wheezes, no crackles, no murmurs ,no rubs CARDIOVASCULAR[ regular S1 S2, bradycardic, no edema] GI: [Abdomen soft, nontender, mildly distended, positive bowel sounds.] PSYCH: [Alert and oriented -3, mood and affect normal.] NEURO: No focal deficits - Labs CBC & Chem 7: 10/18/16 06:31 10/18/16 06:31 Labs: Abnormal Lab Results - Last 24 Hours (Table) 10/18/16 10/18/16 10/18/16 Range/Units 06:31 06:31 09:07 WBC 14.3 H (3.8-10.6) k/uL RBC 3.67 L (4.30-5.90) m/uL Hgb 11.5 L (13.0-17.5) gm/dL Hct 35.0 L (39.0-53.0) % Plt Count 103 L (150-450) k/uL Neutrophils # 13.3 H (1.3-7.7) k/uL Lymphocytes # 0.4 L (1.0-4.8) k/uL APTT 39.2 H (22.0-30.0) sec Sodium 127 L (137-145) mmol/L Chloride 95 L (98-107) mmol/L Carbon Dioxide 17 L (22-30) mmol/L BUN 79 H (9-20) mg/dL Creatinine 1.40 H (0.66-1.25) mg/dL Glucose 134 H (74-99) mg/dL Calcium 8.0 L (8.4-10.2) mg/dL Assessment and Plan Plan: 1. [ Chest pain, shortness of breath, possible acute pulmonary embolism]. 2. [ New-onset Atrial fibrillation with rapid ventricular rate, currently sinus bradycardia]. 3. [ Recently diagnosed poorly differentiated adenocarcinoma of right lung with brain and bone metastasis status post radiation]. 4. [] Pericardial effusion with tamponade, possibly malignant, status post pericardiocentesis, cytology pending. 5. [ Elevated LFTs]. 6. [ Leukocytosis, possibly reactive]. 7. Acute non-STEMI Plan: Continue on current medication regime ,monitoring and symptomatic treatment. Pericardiocentesis, Cytology pending. Prognosis guarded. Further recommendations to follow. The impression and plan of care has been dictated as directed. : I performed a H&P examination of this patient and discussed the same with the dictator. I agree with the dictator's note. Any additional findings/opinions/ etc. will be noted.
[2016-10-18] MEDS ORDERED: WARFARIN 5 MG TAB PO ONE (18:00)
[2016-10-18] MEDS: hydrALAZINE HCL 25 MG TAB PO SCH (22:00)
[2016-10-18] MEDS: METOPROLOL TARTRATE 25 MG TAB PO SCH (22:01)
[2016-10-19] MEDS: HYDROcodone/APAP 5-325MG 1 EACH TAB PO PRN (04:08)
[2016-10-19] MEDS: DILTIAZEM 125 MG in SODIUM CHLORIDE 0.9% 100 ML IV SCH (04:09)
[2016-10-19] MEDS: HYDROmorphone 1 MG/ML 1 ML SYRINGE IVP PRN ×3 (05:08→17:46)
[2016-10-19 06:57] LABS: CH 30.7; CHCM 32.6; HCT 38.2 % (39.0-53.0); HDW 2.27; HGB 12.8 gm/dL (13.0-17.5); Immature Gran Flag Moderate; MCH 31.6 pg (25.0-35.0); MCHC 33.4 g/dL (31.0-37.0); MCV 94.8 fL (80.0-100.0); RBC 4.03 m/uL (4.30-5.90); RDW 14.2 % (11.5-15.5); WBC (Perox) 17.84
[2016-10-19 06:59] LABS: INR 1.3 (<1.2); Prothrombin Time 12.5 sec (9.0-12.0)
[2016-10-19 07:23] LABS: Anion Gap 11 mmol/L; Blood Urea Nitrogen 56 mg/dL (9-20); Calcium 8.3 mg/dL (8.4-10.2); Carbon Dioxide 23 mmol/L (22-30); Chloride 100 mmol/L (98-107); Glucose 111 mg/dL (74-99); Non-African American GFR(MDRD) >60 (>60 ml/min/1.73 sqM); Potassium 5.1 mmol/L (3.5-5.1); Sodium 134 mmol/L (137-145)
[2016-10-19 07:50] LABS: Add Differential Manual Differential
[2016-10-19 07:53] LABS: Metamyelocytes % 1 %; Myelocytes % 2 %; Nucleated Red Blood Cells 4 /100 WBC (0-0); Total Cells Counted 200
[2016-10-19 07:54] LABS: Manual Review Performed; WBC 16.4 k/uL (3.8-10.6)
[2016-10-19] MEDS: METOPROLOL TARTRATE 25 MG TAB PO SCH ×2 (09:00→21:05)
[2016-10-19] MEDS: AMIODARONE 200 MG TAB PO SCH ×2 (09:00→21:04)
--- NOTE | 2016-10-19 09:09 | P.PN ---
Subjective Principal diagnosis: Pericardial effusion with tamponade, post percutaneous insertion of a pericardial drain under echo guidance on 10/18/2016, acute pulmonary embolism, metastatic adenocarcinoma of the lung with EAST[employer]UNNY involvement, thrombocytopenia, acute non-STEMI, new-onset atrial fibrillation, hypertension, and osteoarthritis. Status post day #1 percutaneous insertion of pericardial drain under echo guidance. The patient sitting up with his head elevated in bed. No acute distress. Reports that his breathing is much improved since the fluid was drained yesterday from around his heart. Denies complaints of pain or shortness of breath. 1400 mL of bloody infusion was drained from the percutaneous pericardial drain yesterday 10/18/2016, and 365 mL of bloody drainage was drained this morning from the pericardial drain. Objective - Vital Signs Vital signs: Vital Signs Temp 97.2 F L 10/19/16 04:00 Pulse 50 L 10/19/16 04:00 Resp 20 10/19/16 04:00 BP 161/74 10/19/16 04:00 Pulse Ox 91 L 10/19/16 04:00 Intake & Output 10/18/16 10/19/16 10/19/16 18:59 06:59 18:59 Intake Total 1809 178.619 Output Total 1999 Balance -191 178.619 Weight 74.9 kg Intake: IV 349 0.9 NS @ 20ml/hr 160 Heparin Sodium,Porcine/ 189 D5w Pmx 25,000 unit In Dextrose/Water 1 500ml. bag @ 18 UNITS/KG/HR 27. 27 mls/hr IV .[id number] [facility] Rx#:[id number] Intake, IV Titration 500 178.619 Amount Heparin Sodium,Porcine/ 500 178.619 D5w Pmx 25,000 unit In Dextrose/Water 1 500ml. bag @ 18 UNITS/KG/HR 27. 27 mls/hr IV .[id number] [facility] Rx#:[id number] Oral 960 Output: Urine 2000 Other: Voiding Method Bedside Commode Urinal # Voids 4 - Constitutional General appearance: Present: cooperative, no acute distress - EENT Eyes: Present: PERRLA, normal appearance ENT: Present: hearing grossly normal - Neck Details: No JVD present. - Respiratory Details: 1 sounds are essentially clear to his bilateral upper lobes, diminished to his bilateral lower lobes with some crackles. Respirations are symmetrical and unlabored. Suction saturations are 94% on 4 L nasal cannula. - Cardiovascular Details: Regular rhythm and bradycardic rate. S1 and S2 with pericardial rub present, negative for S3 gallop or murmur. Remote telemetry showing normal sinus bradycardia heart rate 44. Pericardial drain remains intact and patent. 365 mL of bloody drainage drained from the pericardial drain this morning. - Gastrointestinal Gastrointestinal Comment(s): Abdomen is soft, distended, and nontender. Positive bowel sounds all 4 abdominal quadrants. - Genitourinary Genitourinary Comment(s): Urine output adequate, clear yellow. - Integumentary Integumentary Comment(s): No rash, skin warm and dry. - Musculoskeletal Musculoskeletal: Present: generalized weakness - Psychiatric Psychiatric: Present: A&O x's 3, appropriate affect, intact judgment & insight - Allied health notes Allied health notes reviewed: nursing - Labs CBC & Chem 7: 10/19/16 06:39 10/19/16 06:39 Labs: Abnormal Lab Results - Last 24 Hours (Table) 10/18/16 10/18/16 10/19/16 Range/Units 09:07 18:20 01:20 WBC (3.8-10.6) k/uL RBC (4.30-5.90) m/uL Hgb (13.0-17.5) gm/dL Hct (39.0-53.0) % Plt Count (150-450) k/uL Neutrophils # (Manual) (1.3-7.7) k/uL Lymphocytes # (Manual) (1.0-4.8) k/uL Metamyelocytes # (Man) (0) k/uL Myelocytes # (Manual) (0) k/uL Nucleated RBCs (0-0) /100 WBC PT (9.0-12.0) sec INR (<1.2) APTT 39.2 H 34.2 H 62.5 H (22.0-30.0) sec Sodium (137-145) mmol/L BUN (9-20) mg/dL Glucose (74-99) mg/dL Calcium (8.4-10.2) mg/dL 10/19/16 10/19/16 10/19/16 Range/Units 06:39 06:39 06:39 WBC 16.4 H (3.8-10.6) k/uL RBC 4.03 L (4.30-5.90) m/uL Hgb 12.8 L (13.0-17.5) gm/dL Hct 38.2 L (39.0-53.0) % Plt Count 115 L (150-450) k/uL Neutrophils # (Manual) 15.41 H (1.3-7.7) k/uL Lymphocytes # (Manual) 0.33 L (1.0-4.8) k/uL Metamyelocytes # (Man) 0.16 H (0) k/uL Myelocytes # (Manual) 0.33 H (0) k/uL Nucleated RBCs 4 H (0-0) /100 WBC PT 12.5 H (9.0-12.0) sec INR 1.3 H (<1.2) APTT (22.0-30.0) sec Sodium 134 L (137-145) mmol/L BUN 56 H (9-20) mg/dL Glucose 111 H (74-99) mg/dL Calcium 8.3 L (8.4-10.2) mg/dL Assessment and Plan (1) Atrial fibrillation with RVR Status: Acute (2) Chest pain Status: Acute (3) Lung cancer, primary, with metastasis from lung to other site Status: Acute (4) Mass of right lung Status: Acute (5) Pericardial effusion Status: Acute (6) Pulmonary embolism Status: Acute (7) Hypertension Status: Acute Plan: 1. We will drain his pericardial drain daily. 2. Medical management per hospitalist recommendations. 3. Pulmonary management per Dr. Gu's recommendations. 4. Oncology management per Dr. arango's recommendations. 5. More recommendations as patient progresses in care. Time with Patient: Greater than 30
[2016-10-19] MEDS: HEPARIN SODIUM,PORCINE/D5W PMX 25,000 UNIT in DEXTROSE/WATER 1 500ML.BAG IV SCH ×2 (09:34→14:21)
[2016-10-19] MEDS: ALPRAZolam 0.25 MG TAB PO SCH ×2 (09:38→21:10)
[2016-10-19] MEDS: DOCUSATE 100 MG CAP PO SCH ×2 (09:38→21:10)
[2016-10-19] MEDS: ASPIRIN 325 MG TAB PO SCH (09:39)
[2016-10-19] MEDS: hydrALAZINE HCL 25 MG TAB PO SCH ×3 (09:39→21:10)
[2016-10-19] MEDS: PANTOPRAZOLE 40 MG TABLET PO SCH (09:39)
[2016-10-19] MEDS: HYDROCHLOROTHIAZIDE 25 MG TAB PO SCH (09:40)
[2016-10-19] MEDS: DEXAMETHASONE 4 MG TAB PO SCH ×2 (09:40→21:10)
--- NOTE | 2016-10-19 11:58 | P.PN ---
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 The patient presented to the hospital with an acute onset left sided pleuritic chest pain. No hemoptysis. No pleurisy. No swelling lower extremities. No prior history of any DVTs or pulmonary embolism. No angina. No syncope. CT angios the chest was done and showed positive pulmonary embolism. There was a mild burden on the right involving the right lower lobe and segmental and a couple of subsegmental branches in the left lung base. In addition, there was an enlarging right upper lobe mass measuring 7.3 cm in size in addition to enlarging satellite nodules and lymphadenopathy. Nodularity measuring 1.9 cm in the right adrenal gland. Pericardial effusion is also seen and an echocardiogram is to follow to make sure there is no evidence of temponad. He states that his been in good condition. He had been eating well. No nausea. No vomiting. No emesis. No syncope. No cardiac arrhythmias On 10/15/2016 the patient is essentially the same. He denies having any chest pain. Still on IV heparin. Troponin peaked at 11.0. He also went into atrial fibrillation and he was started on Cardizem drip for rate control. Echocardiogram was done regarding the possibility of cardiac tamponade. Results are still pending for now. Meanwhile, ultrasound of the abdomen was also done and there is nonspecific mild gallbladder wall thickening. No ascites. No findings to suggest acute cholecystitis. There is a small right- sided pleural effusion. Doppler of the lower extremities also negative. On 10/16/2016 the patient is being seen in follow-up. The patient is doing well. No specific complaints. Able to sit up on a chair. Echocardiogram was completed and that is no evidence of any cardiac component. The patient however has a large pericardial effusion which could be potentially malignant. Still on IV heparin. Amiodarone his oral 200 mg by mouth twice a day. Patient is also on metoprolol for rate control. Tolerating diet. Will be considered for oral anticoagulation with the next 24 hours. No hemoptysis. No pleurisy. Reevaluated on 10/17/2016, overall the patient is doing well, had few episodes of blood-tinged sputum/hemoptysis. Clinically patient is denying any shortness of breath, no chest pain, no fever, no chills, remains on multiple meds as listed, remains on heparin. Labs were reviewed, PTT is therapeutic. PTT is 52 electrolytes were reviewed BUN is 64 creatinine is 1.70 WBC count is 14.9 hemoglobin is 11.2. Troponin is 11. On 10/18/2016, patient underwent ultrasound-guided pericardiocentesis for pericardial effusion with tamponade, 1400 ml of bloody effusion drained. Patient felt better since. Cytology on the pericardial effusion is pending, it is malignant unless proven otherwise. Labs were reviewed, PTT is 39.2. Renal profile is improving and his sodium is 127. Reevaluated today on 10/19/2016, seems to be doing better, no further episodes of hemoptysis, patient has some shortness of breath, more pericardial fluid was drained today by thoracic surgery, cytology is pending. Patient remains on anti -coagulation therapy, all labs were reviewed. Oncology staff is suggesting that the patient goes home on Coumadin. Objective - Vital Signs Vital signs: Vital Signs Temp 98.0 F 10/19/16 08:00 Pulse 47 L 10/19/16 08:00 Resp 22 10/19/16 08:00 BP 164/77 10/19/16 08:00 Pulse Ox 94 L 10/19/16 08:00 Intake & Output 10/18/16 10/19/16 10/19/16 18:59 06:59 18:59 Intake Total 1809 500.000 100 Output Total 1999 1765 Balance -191 500.000 -1665 Weight 74.9 kg Intake: IV 349 0.9 NS @ 20ml/hr 160 Heparin Sodium,Porcine/ 189 D5w Pmx 25,000 unit In Dextrose/Water 1 500ml. bag @ 18 UNITS/KG/HR 27. 27 mls/hr IV .[id number] [facility] Rx#:[id number] Intake, IV Titration 500 500.000 Amount Heparin Sodium,Porcine/ 500 500.000 D5w Pmx 25,000 unit In Dextrose/Water 1 500ml. bag @ 18 UNITS/KG/HR 27. 27 mls/hr IV .[id number] [facility] Rx#:[id number] Oral 960 100 Output: Drainage 176 Medial Chest 176 Urine 1999 Other: Voiding Method Bedside Commode Urinal # Voids 4 - Exam Head exam was generally normal. There was no scleral icterus or corneal arcus. Mucous membranes were moist.Neck was supple and without jugular venous distension, thyromegaly, or carotid bruits. Carotids were easily palpable bilaterally. There was no adenopathy. Lung sounds are diminished bilaterally otherwise clear.Cardiac exam revealed the PMI to be normally situated and sized. The rhythm was regular and no extrasystoles were noted during several minutes of auscultation. The first and second heart sounds were normal and physiologic splitting of the second heart sound was noted. There were no murmurs , rubs, clicks, or gallops. Pericardiocentesis catheter is noted. Abdomen is slightly distended soft. No ascites. No direct tenderness no rebound, no guarding.Examination of the extremities revealed easily palpable radial, femoral and pedal pulses. There was no cyanosis, clubbing or edema. - Labs CBC & Chem 7: 10/19/16 06:39 10/19/16 06:39 Labs: Abnormal Lab Results - Last 24 Hours (Table) 10/18/16 10/19/16 10/19/16 Range/Units 18:20 01:20 06:39 WBC 16.4 H (3.8-10.6) k/uL RBC 4.03 L (4.30-5.90) m/uL Hgb 12.8 L (13.0-17.5) gm/dL Hct 38.2 L (39.0-53.0) % Plt Count 115 L (150-450) k/uL Neutrophils # (Manual) 15.41 H (1.3-7.7) k/uL Lymphocytes # (Manual) 0.33 L (1.0-4.8) k/uL Metamyelocytes # (Man) 0.16 H (0) k/uL Myelocytes # (Manual) 0.33 H (0) k/uL Nucleated RBCs 4 H (0-0) /100 WBC PT (9.0-12.0) sec INR (<1.2) APTT 34.2 H 62.5 H (22.0-30.0) sec Sodium (137-145) mmol/L BUN (9-20) mg/dL Glucose (74-99) mg/dL Calcium (8.4-10.2) mg/dL 10/19/16 10/19/16 Range/Units 06:39 06:39 WBC (3.8-10.6) k/uL RBC (4.30-5.90) m/uL Hgb (13.0-17.5) gm/dL Hct (39.0-53.0) % Plt Count (150-450) k/uL Neutrophils # (Manual) (1.3-7.7) k/uL Lymphocytes # (Manual) (1.0-4.8) k/uL Metamyelocytes # (Man) (0) k/uL Myelocytes # (Manual) (0) k/uL Nucleated RBCs (0-0) /100 WBC PT 12.5 H (9.0-12.0) sec INR 1.3 H (<1.2) APTT (22.0-30.0) sec Sodium 134 L (137-145) mmol/L BUN 56 H (9-20) mg/dL Glucose 111 H (74-99) mg/dL Calcium 8.3 L (8.4-10.2) mg/dL Assessment and Plan Plan: 1 acute pulmonary embolism with secondary shortness of breath and pleuritic chest pain, currently on IV heparin. Patient has metastatic lung cancer and the patient is currently being treated with brain radiation and systemic chemotherapy is to follow. 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 The patient also has metastases to the bone and probably adrenal glands. A malignant pericardial effusion is also suspected. Completed brain radiation 3 SNAKER TRACTOR DRIVER metastases, completed radiation 4 pericardial effusion with tamponade requiring pericardiocentesis on 2016. 5 thrombocytopenia 6 acute non-STEMI 7 new-onset atrial fibrillation currently oral amiodarone 200 mg by mouth twice a day metoprolol 12.5 mg twice a day. Echocardiogram was noted. 8 intermittent episodes of hemoptysis, could be related to his underlying lung cancer could also be related to his underlying pulmonary embolism. Continue to monitor until coagulation therapy, I believe the benefits of the treatment outweigh the risks at this point. However if his condition gets any worse, may have to consider a filter placement. Recommendation: Continue to monitor, discussed his condition with family at bedside, made aware that prognosis is extremely poor, await results of the cytology from the pericardial effusion, again is suspected to be malignant unless proven otherwise. We'll continue to follow. Time with Patient: Less than 30
--- NOTE | 2016-10-19 13:54 | P.PN ---
Subjective Principal diagnosis: Pericardial effusion This is a pleasant 55-year-old gentleman who was recently diagnosed with poorly differentiated adenocarcinoma the right lung, stage IV, with involvement of the [employer], was about to complete brain radiation therapy and be initiated on chemotherapy. He presented to the hospital initially with symptoms of left-sided pleuritic type chest pain. Cardiology consultation was requested because of a significant pericardial effusion. Patient did undergo percutaneous insertion of a pericardial drain under echo guidance yesterday, 1400 mL of bloody pericardial fluid was removed at that time. Again today the patient underwent drainage of approximately 400 mL of pericardial bloody fluid. Cytology is pending. Overall the patient states that he feels slightly better today. Complaining of feeling weak.: Oncology's recommendation is that the patient stay on Coumadin. We will therefore continue the IV heparin, give the patient another 5 mg of Coumadin today. Check daily PT/INR. Objective - Vital Signs Vital signs: Vital Signs Temp 97.4 F L 10/19/16 12:00 Pulse 45 L 10/19/16 12:00 Resp 20 10/19/16 12:00 BP 168/77 10/19/16 12:00 Pulse Ox 95 10/19/16 12:00 Intake & Output 10/18/16 10/19/16 10/19/16 18:59 06:59 18:59 Intake Total 1809 500.000 100 Output Total 1999 1765 Balance -191 500.000 -1665 Weight 74.9 kg Intake: IV 349 0.9 NS @ 20ml/hr 160 Heparin Sodium,Porcine/ 189 D5w Pmx 25,000 unit In Dextrose/Water 1 500ml. bag @ 18 UNITS/KG/HR 27. 27 mls/hr IV .[id number] [facility] Rx#:[id number] Intake, IV Titration 500 500.000 Amount Heparin Sodium,Porcine/ 500 500.000 D5w Pmx 25,000 unit In Dextrose/Water 1 500ml. bag @ 18 UNITS/KG/HR 27. 27 mls/hr IV .[id number] [facility] Rx#:[id number] Oral 960 100 Output: Drainage 1764 Medial Chest 1764 Urine 1999 Other: Voiding Method Bedside Commode Urinal # Voids 4 - Exam PHYSICAL EXAMINATION: HEENT: Head is atraumatic, normocephalic. Pupils equal, round. Neck is supple. There is no elevated jugular venous pressure. HEART EXAMINATION: Heart S1, S2 normal. No murmur or gallop heard. CHEST EXAMINATION: Lungs are clear with mild diminished air entry to the bases. Pericardiocentesis catheter is noted ABDOMEN: Soft, nontender. Bowel sounds are heard. No organomegaly noted. EXTREMITIES: 2+ peripheral pulses with no evidence of peripheral edema and no calf tenderness noted. NEUROLOGIC patient is awake, alert and oriented -3. . - Labs CBC & Chem 7: 10/19/16 06:39 10/19/16 06:39 Labs: Abnormal Lab Results - Last 24 Hours (Table) 10/18/16 10/19/16 10/19/16 Range/Units 18:20 01:20 06:39 WBC 16.4 H (3.8-10.6) k/uL RBC 4.03 L (4.30-5.90) m/uL Hgb 12.8 L (13.0-17.5) gm/dL Hct 38.2 L (39.0-53.0) % Plt Count 115 L (150-450) k/uL Neutrophils # (Manual) 15.41 H (1.3-7.7) k/uL Lymphocytes # (Manual) 0.33 L (1.0-4.8) k/uL Metamyelocytes # (Man) 0.16 H (0) k/uL Myelocytes # (Manual) 0.33 H (0) k/uL Nucleated RBCs 4 H (0-0) /100 WBC PT (9.0-12.0) sec INR (<1.2) APTT 34.2 H 62.5 H (22.0-30.0) sec Sodium (137-145) mmol/L BUN (9-20) mg/dL Glucose (74-99) mg/dL Calcium (8.4-10.2) mg/dL 10/19/16 10/19/16 Range/Units 06:39 06:39 WBC (3.8-10.6) k/uL RBC (4.30-5.90) m/uL Hgb (13.0-17.5) gm/dL Hct (39.0-53.0) % Plt Count (150-450) k/uL Neutrophils # (Manual) (1.3-7.7) k/uL Lymphocytes # (Manual) (1.0-4.8) k/uL Metamyelocytes # (Man) (0) k/uL Myelocytes # (Manual) (0) k/uL Nucleated RBCs (0-0) /100 WBC PT 12.5 H (9.0-12.0) sec INR 1.3 H (<1.2) APTT (22.0-30.0) sec Sodium 134 L (137-145) mmol/L BUN 56 H (9-20) mg/dL Glucose 111 H (74-99) mg/dL Calcium 8.3 L (8.4-10.2) mg/dL Assessment and Plan (1) Brain metastases Status: Acute (2) Paroxysmal atrial fibrillation Status: Acute (3) Lung cancer, primary, with metastasis from lung to other site Status: Acute (4) Mass of right lung Status: Acute (5) Pericardial effusion Status: Acute (6) Pulmonary embolism Status: Acute (7) Hypertension Status: Acute Plan: From cardiology's perspective, under the recommendation of oncology. We will continue the IV heparin, give the patient 5 mg of Coumadin today. Overall prognosis extremely poor. Await cytology results from pericardial effusion. DNP note has been reviewed, I agree with a documented findings and plan of care. Patient was seen and examined.
[2016-10-19 14:36] LABS: CH 31.7; CHCM 33.7; HCT 35.9 % (39.0-53.0); HDW 2.32; HGB 11.7 gm/dL (13.0-17.5); Immature Gran Flag Marked; MCHC 32.7 g/dL (31.0-37.0); MCV 94.8 fL (80.0-100.0); Mean Platelet Volume 8.3; RBC 3.79 m/uL (4.30-5.90); RDW 15.2 % (11.5-15.5); WBC (Perox) 18.08
[2016-10-19 14:48] LABS: Add Differential Manual Differential; INR 1.2 (<1.2); Partial Thromboplastin Time 30.5 sec (22.0-30.0); Prothrombin Time 11.5 sec (9.0-12.0)
[2016-10-19 14:50] LABS: Band Neutrophils % 3.5 %; Metamyelocytes % 1 %; Nucleated Red Blood Cells 5 /100 WBC (0-0); Total Cells Counted 200
[2016-10-19 14:51] LABS: Manual Review Performed; WBC 15.9 k/uL (3.8-10.6)
[2016-10-19 14:54] LABS: Polychromasia Present
--- NOTE | 2016-10-19 16:29 | P.PN ---
Subjective Progress note being dictated for Dr. Haji. 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 Renal function improving. Sodium 127. Echo limited study, reporting evidence of cardiac tamponade, large global pericardial effusion. Underwent pericardiocentesis with 1400 MLS dark bloody drainage removed, cytology pending. Tolerated procedure well, states feels better post-procedure. 10/19/16 states shortness of breath improving since procedure, further pericardial fluid drainage this morning as per cardiothoracic surgery via pericardial catheter. Cytology pending. No hemoptysis reported. Afebrile. Telemetry sinus bradycardia, heart rates currently in the 40s-asymptomatic. Sodium improved, currently 134. Objective - Vital Signs Vital signs: Vital Signs Temp 97.4 F L 10/19/16 12:00 Pulse 45 L 10/19/16 12:00 Resp 20 10/19/16 12:00 BP 168/77 10/19/16 12:00 Pulse Ox 95 10/19/16 12:00 Intake & Output 10/18/16 10/19/16 10/19/16 18:59 06:59 18:59 Intake Total 1809 500.000 100 Output Total 3400 365 Balance -1591 500.000 -265 Weight 74.9 kg Intake: IV 349 0.9 NS @ 20ml/hr 160 Heparin Sodium,Porcine/ 189 D5w Pmx 25,000 unit In Dextrose/Water 1 500ml. bag @ 18 UNITS/KG/HR 27. 27 mls/hr IV .[id number] [facility] Rx#:[id number] Intake, IV Titration 500 500.000 Amount Heparin Sodium,Porcine/ 500 500.000 D5w Pmx 25,000 unit In Dextrose/Water 1 500ml. bag @ 18 UNITS/KG/HR 27. 27 mls/hr IV .[id number] [facility] Rx#:[id number] Oral 960 100 Output: Drainage 1400 365 Medial Chest 1400 365 Urine 2000 Other: Voiding Method Bedside Commode Urinal # Voids 4 - Exam PHYSICAL EXAM: VITAL SIGNS: As above GENERAL: [Eating up in bed, no acute distress] HEENT: [Pupils equal conjunctiva normal.] NECK: [Supple, no JVD] RESPIRATORY EFFORT:[ Increased] LUNGS: [Bilateral bases diminished, occasional fine scattered crackles, no rhonchi, no wheezes, CARDIOVASCULAR[ regular S1 S2, bradycardic, no murmurs, positive rub, no edema. Pericardial catheter present. GI: [Abdomen soft, nontender, mildly distended, positive bowel sounds.] PSYCH: [Alert and oriented -3, mood and affect normal.] NEURO: No focal deficits - Labs CBC & Chem 7: 10/19/16 14:20 10/19/16 06:39 Labs: Abnormal Lab Results - Last 24 Hours (Table) 10/18/16 10/19/16 10/19/16 Range/Units 18:20 01:20 06:39 WBC 16.4 H (3.8-10.6) k/uL RBC 4.03 L (4.30-5.90) m/uL Hgb 12.8 L (13.0-17.5) gm/dL Hct 38.2 L (39.0-53.0) % Plt Count 115 L (150-450) k/uL Neutrophils # (Manual) 15.41 H (1.3-7.7) k/uL Lymphocytes # (Manual) 0.33 L (1.0-4.8) k/uL Metamyelocytes # (Man) 0.16 H (0) k/uL Myelocytes # (Manual) 0.33 H (0) k/uL Nucleated RBCs 4 H (0-0) /100 WBC PT (9.0-12.0) sec INR (<1.2) APTT 34.2 H 62.5 H (22.0-30.0) sec Sodium (137-145) mmol/L BUN (9-20) mg/dL Glucose (74-99) mg/dL Calcium (8.4-10.2) mg/dL 10/19/16 10/19/16 10/19/16 Range/Units 06:39 06:39 14:20 WBC 15.9 H (3.8-10.6) k/uL RBC 3.79 L (4.30-5.90) m/uL Hgb 11.7 L (13.0-17.5) gm/dL Hct 35.9 L (39.0-53.0) % Plt Count 117 L (150-450) k/uL Neutrophils # (Manual) 14.70 H (1.3-7.7) k/uL Lymphocytes # (Manual) 0.16 L (1.0-4.8) k/uL Metamyelocytes # (Man) 0.16 H (0) k/uL Myelocytes # (Manual) (0) k/uL Nucleated RBCs 5 H (0-0) /100 WBC PT 12.5 H (9.0-12.0) sec INR 1.3 H (<1.2) APTT (22.0-30.0) sec Sodium 134 L (137-145) mmol/L BUN 56 H (9-20) mg/dL Glucose 111 H (74-99) mg/dL Calcium 8.3 L (8.4-10.2) mg/dL 10/19/16 Range/Units 14:20 WBC (3.8-10.6) k/uL RBC (4.30-5.90) m/uL Hgb (13.0-17.5) gm/dL Hct (39.0-53.0) % Plt Count (150-450) k/uL Neutrophils # (Manual) (1.3-7.7) k/uL Lymphocytes # (Manual) (1.0-4.8) k/uL Metamyelocytes # (Man) (0) k/uL Myelocytes # (Manual) (0) k/uL Nucleated RBCs (0-0) /100 WBC PT (9.0-12.0) sec INR 1.2 H (<1.2) APTT 30.5 H (22.0-30.0) sec Sodium (137-145) mmol/L BUN (9-20) mg/dL Glucose (74-99) mg/dL Calcium (8.4-10.2) mg/dL Assessment and Plan Plan: 1. [ Chest pain, shortness of breath, acute pulmonary embolism]. 2. [ New-onset Atrial fibrillation with rapid ventricular rate, currently sinus bradycardia]. 3. [ Recently diagnosed poorly differentiated adenocarcinoma of right lung with brain and bone metastasis status post radiation]. 4. Pericardial effusion with tamponade, possibly malignant, status post pericardiocentesis, cytology pending. 5. [ Elevated LFTs]. 6. [ Leukocytosis, possibly reactive]. 7. Acute non-STEMI Plan: Continue on current medication regime ,monitoring and symptomatic treatment. Hematology/oncology recommending coumadin at DC. Pericardiocentesis , Cytology pending. Prognosis guarded. Further recommendations to follow. The impression and plan of care has been dictated as directed. : I performed a H&P examination of this patient and discussed the same with the dictator. I agree with the dictator's note. Any additional findings/opinions/ etc. will be noted.
--- NOTE | 2016-10-19 17:39 | P.PN ---
Subjective Principal diagnosis: SOB, chest pain-pericardial effusion Pt seen today in follow up, he states breathing better, less pain in chest. He and his note he is thinking more clearly and is more alert. They had many questions about his cancer and plans. Objective - Vital Signs Vital signs: Vital Signs Temp 97.4 F L 10/19/16 12:00 Pulse 45 L 10/19/16 12:00 Resp 20 10/19/16 12:00 BP 168/77 10/19/16 12:00 Pulse Ox 95 10/19/16 12:00 Intake & Output 10/18/16 10/19/16 10/19/16 18:59 06:59 18:59 Intake Total 1809 500.000 100 Output Total 3400 365 Balance -1591 500.000 -265 Weight 74.9 kg Intake: IV 349 0.9 NS @ 20ml/hr 160 Heparin Sodium,Porcine/ 189 D5w Pmx 25,000 unit In Dextrose/Water 1 500ml. bag @ 18 UNITS/KG/HR 27. 27 mls/hr IV .[id number] [facility] Rx#:[id number] Intake, IV Titration 500 500.000 Amount Heparin Sodium,Porcine/ 500 500.000 D5w Pmx 25,000 unit In Dextrose/Water 1 500ml. bag @ 18 UNITS/KG/HR 27. 27 mls/hr IV .[id number] [facility] Rx#:[id number] Oral 960 100 Output: Drainage 1400 365 Medial Chest 1400 365 Urine 2000 Other: Voiding Method Bedside Commode Urinal # Voids 4 - Exam increased RR, no nasal flaring, pt can speak without too much breathing difficulty, he is definitely more alert and oriented then when I have seen him in the past. - Constitutional General appearance: Present: no acute distress, thin - Labs CBC & Chem 7: 10/19/16 14:20 10/19/16 06:39 Labs: Abnormal Lab Results - Last 24 Hours (Table) 10/18/16 10/19/16 10/19/16 Range/Units 18:20 01:20 06:39 WBC 16.4 H (3.8-10.6) k/uL RBC 4.03 L (4.30-5.90) m/uL Hgb 12.8 L (13.0-17.5) gm/dL Hct 38.2 L (39.0-53.0) % Plt Count 115 L (150-450) k/uL Neutrophils # (Manual) 15.41 H (1.3-7.7) k/uL Lymphocytes # (Manual) 0.33 L (1.0-4.8) k/uL Metamyelocytes # (Man) 0.16 H (0) k/uL Myelocytes # (Manual) 0.33 H (0) k/uL Nucleated RBCs 4 H (0-0) /100 WBC PT (9.0-12.0) sec INR (<1.2) APTT 34.2 H 62.5 H (22.0-30.0) sec Sodium (137-145) mmol/L BUN (9-20) mg/dL Glucose (74-99) mg/dL Calcium (8.4-10.2) mg/dL 10/19/16 10/19/16 10/19/16 Range/Units 06:39 06:39 14:20 WBC 15.9 H (3.8-10.6) k/uL RBC 3.79 L (4.30-5.90) m/uL Hgb 11.7 L (13.0-17.5) gm/dL Hct 35.9 L (39.0-53.0) % Plt Count 117 L (150-450) k/uL Neutrophils # (Manual) 14.70 H (1.3-7.7) k/uL Lymphocytes # (Manual) 0.16 L (1.0-4.8) k/uL Metamyelocytes # (Man) 0.16 H (0) k/uL Myelocytes # (Manual) (0) k/uL Nucleated RBCs 5 H (0-0) /100 WBC PT 12.5 H (9.0-12.0) sec INR 1.3 H (<1.2) APTT (22.0-30.0) sec Sodium 134 L (137-145) mmol/L BUN 56 H (9-20) mg/dL Glucose 111 H (74-99) mg/dL Calcium 8.3 L (8.4-10.2) mg/dL 10/19/16 Range/Units 14:20 WBC (3.8-10.6) k/uL RBC (4.30-5.90) m/uL Hgb (13.0-17.5) gm/dL Hct (39.0-53.0) % Plt Count (150-450) k/uL Neutrophils # (Manual) (1.3-7.7) k/uL Lymphocytes # (Manual) (1.0-4.8) k/uL Metamyelocytes # (Man) (0) k/uL Myelocytes # (Manual) (0) k/uL Nucleated RBCs (0-0) /100 WBC PT (9.0-12.0) sec INR 1.2 H (<1.2) APTT 30.5 H (22.0-30.0) sec Sodium (137-145) mmol/L BUN (9-20) mg/dL Glucose (74-99) mg/dL Calcium (8.4-10.2) mg/dL Assessment and Plan (1) Lung cancer, primary, with metastasis from lung to other site Narrative/Plan: Pt has only completed WBRT for brain mets-he has not started chemo yet. I spoke with pt and family about life expectancy, likely <3 mo without treatment and possibly 12-18 months with treatment if his cancer responds well. Purpose of treatment is palliation of symptoms and prolongation of life, pt has stage IV disease that is not curable. Other option is comfort/hospice which is reasonable as well. All questions answered to the best of my ability, pt and verbalized understanding. If pericardial effusion is able to corrected/controlled there is no reason that the pt could not try combination chemotherapy/immunotherapy-this combination is showing survival benefit near 18 months. Pt always has the option to stop treatment at any time. Pt will think about his options and see how he is feeling after his current situation is managed. F/U appt in chart. Did speak with Dr. Ortiz re: last brain XRT, he will see pt to make that decision. Status: Acute Time with Patient: Greater than 30
[2016-10-19] MEDS ORDERED: WARFARIN 5 MG TAB PO ONE (18:00)
[2016-10-19] MEDS: HEPARIN SODIUM,PORCINE 5,000 UNIT/ML 1 ML VIAL IV PRN (21:19)
[2016-10-20] MEDS: HYDROmorphone 1 MG/ML 1 ML SYRINGE IVP PRN ×3 (00:06→23:33)
[2016-10-20 02:57] LABS: Anion Gap 8 mmol/L; Blood Urea Nitrogen 43 mg/dL (9-20); Calcium 8.4 mg/dL (8.4-10.2); Carbon Dioxide 26 mmol/L (22-30); Chloride 98 mmol/L (98-107); Glucose 146 mg/dL (74-99); Non-African American GFR(MDRD) >60 (>60 ml/min/1.73 sqM); Potassium 5.4 mmol/L (3.5-5.1); Sodium 132 mmol/L (137-145)
[2016-10-20 03:12] LABS: CH 30.8; CHCM 32.6; HCT 38.4 % (39.0-53.0); HDW 2.37; HGB 12.7 gm/dL (13.0-17.5); MCH 31.4 pg (25.0-35.0); MCHC 33.1 g/dL (31.0-37.0); MCV 94.9 fL (80.0-100.0); Mean Platelet Volume 8.1; RBC 4.05 m/uL (4.30-5.90); RDW 14.2 % (11.5-15.5); WBC (Perox) 16.38
[2016-10-20 03:48] LABS: Add Differential Manual Differential
[2016-10-20 03:50] LABS: Band Neutrophils % 0.5 %; Manual Review Performed; Nucleated Red Blood Cells 4 /100 WBC (0-0); Total Cells Counted 200; WBC 15.5 k/uL (3.8-10.6)
[2016-10-20] MEDS: HEPARIN SODIUM,PORCINE 5,000 UNIT/ML 1 ML VIAL IV PRN (04:50)
[2016-10-20] MEDS: PANTOPRAZOLE 40 MG TABLET PO SCH (06:45)
--- NOTE | 2016-10-20 08:39 | P.PN ---
Subjective Principal diagnosis: Pericardial effusion with tamponade. Acute pulmonary embolism. 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 Thrombocytopenia. New-onset atrial fibrillation. Hypertension. Osteoarthritis. POD #2 percutaneous insertion of pericardial drain under echo guidance. Patient's currently sitting up in bed in no acute distress. Denies pain, states he does not feel short of breath at this moment. Currently eating breakfast. States he ambulated in the hallway yesterday and tolerated it well. 1400 mL of bloody drainage was evacuated from the pericardial drain on October 18, 365 mL of bloody drainage was evacuated October 19. Objective - Vital Signs Vital signs: Vital Signs Temp 96.8 F L 10/20/16 02:45 Pulse 51 L 10/20/16 04:00 Resp 18 10/20/16 04:00 BP 159/75 10/20/16 02:45 Pulse Ox 95 10/20/16 02:45 Intake & Output 10/19/16 10/20/16 10/20/16 18:59 06:59 18:59 Intake Total 714.4 1154.193 Output Total 365 Balance 349.4 1154.193 Weight 73.6 kg Intake: IV 378.4 861 0.9 NS @ 20ml/hr 160 480 Heparin Sodium,Porcine/ 218.4 381 D5w Pmx 25,000 unit In Dextrose/Water 1 500ml. bag @ 18 UNITS/KG/HR 27. 27 mls/hr IV .[id number] [facility] Rx#:[id number] Intake, IV Titration 293.193 Amount Heparin Sodium,Porcine/ 293.193 D5w Pmx 25,000 unit In Dextrose/Water 1 500ml. bag @ 12 UNITS/KG/HR 17. 97 mls/hr IV .Q24H [facility] Rx #:[id number] Oral 336 Output: Drainage 365 Medial Chest 365 Other: Voiding Method Bedside Commode Urinal - Constitutional General appearance: Present: cooperative, no acute distress - Respiratory Details: Lungs sounds very diminished bilaterally. Respirations even, nonlabored. Currently on 4 L nasal cannula with oxygen saturation 95%. - Cardiovascular Details: S1, S2 present. Bradycardic rate and rhythm, sinus bradycardia on telemetry. Palpable pulses bilaterally. No edema present. Pericardial drain present. - Gastrointestinal Gastrointestinal Comment(s): Abdomen soft, nontender, nondistended. Active bowel sounds 4 quadrants. Tolerating diet. - Genitourinary Genitourinary Comment(s): Continues to void clear, yellow urine. - Integumentary Integumentary Comment(s): Anterior chest pericardial drain covered with occlusive dressing. - Neurologic Neurologic: Present: CNII-XII intact - Musculoskeletal Musculoskeletal: Present: gait normal, strength equal bilaterally - Psychiatric Psychiatric: Present: A&O x's 3, appropriate affect, intact judgment & insight - Allied health notes Allied health notes reviewed: nursing - Labs CBC & Chem 7: 10/20/16 02:34 10/20/16 02:34 Labs: Abnormal Lab Results - Last 24 Hours (Table) 10/19/16 10/19/16 10/19/16 Range/Units 06:39 14:20 14:20 WBC 16.4 H 15.9 H (3.8-10.6) k/uL RBC 4.03 L 3.79 L (4.30-5.90) m/uL Hgb 12.8 L 11.7 L (13.0-17.5) gm/dL Hct 38.2 L 35.9 L (39.0-53.0) % Plt Count 115 L 117 L (150-450) k/uL Neutrophils # (Manual) 15.41 H 14.70 H (1.3-7.7) k/uL Lymphocytes # (Manual) 0.33 L 0.16 L (1.0-4.8) k/uL Metamyelocytes # (Man) 0.16 H 0.16 H (0) k/uL Myelocytes # (Manual) 0.33 H (0) k/uL Nucleated RBCs 4 H 5 H (0-0) /100 WBC INR 1.2 H (<1.2) APTT 30.5 H (22.0-30.0) sec Sodium (137-145) mmol/L Potassium (3.5-5.1) mmol/L BUN (9-20) mg/dL Glucose (74-99) mg/dL 10/20/16 10/20/16 10/20/16 Range/Units 02:34 02:34 02:34 WBC 15.5 H (3.8-10.6) k/uL RBC 4.05 L (4.30-5.90) m/uL Hgb 12.7 L (13.0-17.5) gm/dL Hct 38.4 L (39.0-53.0) % Plt Count 123 L (150-450) k/uL Neutrophils # (Manual) 14.33 H (1.3-7.7) k/uL Lymphocytes # (Manual) 0.47 L (1.0-4.8) k/uL Metamyelocytes # (Man) (0) k/uL Myelocytes # (Manual) (0) k/uL Nucleated RBCs 4 H (0-0) /100 WBC INR (<1.2) APTT 31.6 H (22.0-30.0) sec Sodium 132 L (137-145) mmol/L Potassium 5.4 H (3.5-5.1) mmol/L BUN 43 H (9-20) mg/dL Glucose 146 H (74-99) mg/dL Assessment and Plan (1) Atrial fibrillation with RVR Status: Acute (2) Chest pain Status: Acute (3) Lung cancer, primary, with metastasis from lung to other site Status: Acute (4) Mass of right lung Status: Acute (5) Pericardial effusion Status: Acute (6) Pulmonary embolism Status: Acute (7) Hypertension Status: Acute Plan: 1. Will drain his pericardial drain daily. Evacuated 20 ml bloody drainage today. 2. Amiodarone, Apresoline, Lopressor, aspirin and heparin per cardiology recommendations. 3. Medical management per primary care service. 4. Encourage incentive spirometry use. Wean O2 as tolerated. 5. Appreciate oncology recommendations. Patient is considering his options and does understand any treatment is palliative. 6. Increase activity, ambulate in hallway. 7. More recommendations as patient progresses. Time with Patient: Greater than 30
[2016-10-20] MEDS: hydrALAZINE HCL 25 MG TAB PO SCH ×3 (08:59→21:36)
[2016-10-20] MEDS: ALPRAZolam 0.25 MG TAB PO SCH ×2 (08:59→21:36)
[2016-10-20] MEDS: ASPIRIN 325 MG TAB PO SCH (08:59)
[2016-10-20] MEDS: HYDROCHLOROTHIAZIDE 25 MG TAB PO SCH (09:00)
[2016-10-20] MEDS: DOCUSATE 100 MG CAP PO SCH ×2 (09:00→21:36)
[2016-10-20] MEDS: DEXAMETHASONE 4 MG TAB PO SCH ×2 (09:00→21:36)
[2016-10-20] MEDS: AMIODARONE 200 MG TAB PO SCH ×2 (09:09→21:39)
[2016-10-20] MEDS: METOPROLOL TARTRATE 25 MG TAB PO SCH ×2 (09:10→21:39)
[2016-10-20 09:46] LABS: INR 1.2 (<1.2); Partial Thromboplastin Time 49.8 sec (22.0-30.0); Prothrombin Time 11.7 sec (9.0-12.0)
[2016-10-20] MEDS: HEPARIN SODIUM,PORCINE/D5W PMX 25,000 UNIT in DEXTROSE/WATER 1 500ML.BAG IV SCH (11:02)
[2016-10-20] MEDS: FUROSEMIDE 10 MG/ML 4 ML VIAL IV SCH (11:33)
--- NOTE | 2016-10-20 12:03 | XR ---
EXAMINATION TYPE: XR chest 1V portable DATE OF EXAM: 10/20/2016 Comparison: 10/14/2016 Clinical History: 55-year-old male right upper lobe cancer, shortness of breath, change in status Findings: The heart is upper limits of normal in size. Suspect some bullous emphysematous change in the right u pper lobe. There is volume loss in the right upper lobe with upward deviation of the minor fissure. C ontinued masslike thickening along the minor fissure. There is some patchy medial right basilar opaci ty which is increased from prior. Impression: 1. Redemonstrated right mid lung mass, bullous change in the right apex, and COPD. 2. New patchy medial right basilar atelectasis or developing infiltrate.
--- NOTE | 2016-10-20 12:09 | P.PN ---
Subjective Principal diagnosis: Pericardial effusion This is a pleasant 55-year-old gentleman who was recently diagnosed with poorly differentiated adenocarcinoma the right lung, stage IV, with involvement of the DIRT BIKE RACER, was about to complete brain radiation therapy and be initiated on chemotherapy. He presented to the hospital initially with symptoms of left-sided pleuritic type chest pain. Cardiology consultation was requested because of a significant pericardial effusion. Patient did undergo percutaneous insertion of a pericardial drain under echo guidance yesterday, 1400 mL of bloody pericardial fluid was removed at that time. Again today the patient underwent drainage of approximately 400 mL of pericardial bloody fluid. Cytology is pending. Overall the patient states that he feels slightly better today. Complaining of feeling weak.: Oncology's recommendation is that the patient stay on Coumadin. We will therefore continue the IV heparin, give the patient another 5 mg of Coumadin today. Check daily PT/INR. 10/20/2016 Patient seen and examined this morning, he just returned back from the bathroom , was quite short of breath. Seems to be worse as compared with yesterday. We will request a chest x-ray be performed portably. We will also give the patient one time dose of 40 mg IV Lasix now. INR 1.3 today we will give an additional 5 mg of Coumadin today. Objective - Vital Signs Vital signs: Vital Signs Temp 96.9 F L 10/20/16 08:00 Pulse 53 L 10/20/16 08:00 Resp 18 10/20/16 08:00 BP 170/79 10/20/16 08:00 Pulse Ox 96 10/20/16 08:00 Intake & Output 10/19/16 10/20/16 10/20/16 18:59 06:59 18:59 Intake Total 714.4 1154.193 588.5 Output Total 365 Balance 349.4 1154.193 588.5 Weight 73.6 kg Intake: IV 378.4 861 0.9 NS @ 20ml/hr 160 480 Heparin Sodium,Porcine/ 218.4 381 D5w Pmx 25,000 unit In Dextrose/Water 1 500ml. bag @ 18 UNITS/KG/HR 27. 27 mls/hr IV .[id number] [facility] Rx#:[id number] Intake, IV Titration 293.193 168.5 Amount Heparin Sodium,Porcine/ 293.193 168.5 D5w Pmx 25,000 unit In Dextrose/Water 1 500ml. bag @ 12 UNITS/KG/HR 17. 97 mls/hr IV .Q24H [facility] Rx #:[id number] Oral 336 420 Output: Drainage 365 Medial Chest 365 Other: Voiding Method Bedside Commode Urinal - Exam PHYSICAL EXAMINATION: HEENT: Head is atraumatic, normocephalic. Pupils equal, round. Neck is supple. There is no elevated jugular venous pressure. HEART EXAMINATION: Heart S1, S2 normal. No murmur or gallop heard. CHEST EXAMINATION: Lungs are clear with mild diminished air entry to the bases. Pericardiocentesis catheter is noted ABDOMEN: Soft, nontender. Bowel sounds are heard. No organomegaly noted. EXTREMITIES: 2+ peripheral pulses with no evidence of peripheral edema and no calf tenderness noted. NEUROLOGIC patient is awake, alert and oriented -3. . - Labs CBC & Chem 7: 10/20/16 02:34 10/20/16 02:34 Labs: Abnormal Lab Results - Last 24 Hours (Table) 10/19/16 10/19/16 10/20/16 Range/Units 14:20 14:20 02:34 WBC 15.9 H 15.5 H (3.8-10.6) k/uL RBC 3.79 L 4.05 L (4.30-5.90) m/uL Hgb 11.7 L 12.7 L (13.0-17.5) gm/dL Hct 35.9 L 38.4 L (39.0-53.0) % Plt Count 117 L 123 L (150-450) k/uL Neutrophils # (Manual) 14.70 H 14.33 H (1.3-7.7) k/uL Lymphocytes # (Manual) 0.16 L 0.47 L (1.0-4.8) k/uL Metamyelocytes # (Man) 0.16 H (0) k/uL Nucleated RBCs 5 H 4 H (0-0) /100 WBC INR 1.2 H (<1.2) APTT 30.5 H (22.0-30.0) sec Sodium (137-145) mmol/L Potassium (3.5-5.1) mmol/L BUN (9-20) mg/dL Glucose (74-99) mg/dL 10/20/16 10/20/16 10/20/16 Range/Units 02:34 02:34 09:12 WBC (3.8-10.6) k/uL RBC (4.30-5.90) m/uL Hgb (13.0-17.5) gm/dL Hct (39.0-53.0) % Plt Count (150-450) k/uL Neutrophils # (Manual) (1.3-7.7) k/uL Lymphocytes # (Manual) (1.0-4.8) k/uL Metamyelocytes # (Man) (0) k/uL Nucleated RBCs (0-0) /100 WBC INR 1.2 H (<1.2) APTT 31.6 H 49.8 H (22.0-30.0) sec Sodium 132 L (137-145) mmol/L Potassium 5.4 H (3.5-5.1) mmol/L BUN 43 H (9-20) mg/dL Glucose 146 H (74-99) mg/dL Assessment and Plan (1) Brain metastases Status: Acute (2) Paroxysmal atrial fibrillation Status: Acute (3) Lung cancer, primary, with metastasis from lung to other site Status: Acute (4) Mass of right lung Status: Acute (5) Pericardial effusion Status: Acute (6) Pulmonary embolism Status: Acute (7) Hypertension Status: Acute Plan: From cardiology's perspective, we will request a repeat chest x-ray today. Give the patient one time dose of 40 mg IV Lasix. We will also order 5 mg of Coumadin today. DNP note has been reviewed, I agree with a documented findings and plan of care. Patient was seen and examined.
--- NOTE | 2016-10-20 12:31 | P.PN ---
Subjective Principal diagnosis: Acute pulmonary embolism, metastatic lung cancer 55-year-old male patient with a known history of metastatic adenocarcinoma of the lung with DESIGNER AND PATTERNMAKER involvement, was about to complete brain radiation therapy and has not been initiated on systemic chemotherapy. The patient presented to the hospital with an acute onset left sided pleuritic chest pain. No hemoptysis. No pleurisy. No swelling lower extremities. No prior history of any DVTs or pulmonary embolism. No angina. No syncope. CT angios the chest was done and showed positive pulmonary embolism. There was a mild burden on the right involving the right lower lobe and segmental and a couple of subsegmental branches in the left lung base. In addition, there was an enlarging right upper lobe mass measuring 7.3 cm in size in addition to enlarging satellite nodules and lymphadenopathy. Nodularity measuring 1.9 cm in the right adrenal gland. Pericardial effusion is also seen and an echocardiogram is to follow to make sure there is no evidence of temponad. He states that his been in good condition. He had been eating well. No nausea. No vomiting. No emesis. No syncope. No cardiac arrhythmias On 10/15/2016 the patient is essentially the same. He denies having any chest pain. Still on IV heparin. Troponin peaked at 11.0. He also went into atrial fibrillation and he was started on Cardizem drip for rate control. Echocardiogram was done regarding the possibility of cardiac tamponade. Results are still pending for now. Meanwhile, ultrasound of the abdomen was also done and there is nonspecific mild gallbladder wall thickening. No ascites. No findings to suggest acute cholecystitis. There is a small right- sided pleural effusion. Doppler of the lower extremities also negative. On 10/16/2016 the patient is being seen in follow-up. The patient is doing well. No specific complaints. Able to sit up on a chair. Echocardiogram was completed and that is no evidence of any cardiac component. The patient however has a large pericardial effusion which could be potentially malignant. Still on IV heparin. Amiodarone his oral 200 mg by mouth twice a day. Patient is also on metoprolol for rate control. Tolerating diet. Will be considered for oral anticoagulation with the next 24 hours. No hemoptysis. No pleurisy. Reevaluated on 10/17/2016, overall the patient is doing well, had few episodes of blood-tinged sputum/hemoptysis. Clinically patient is denying any shortness of breath, no chest pain, no fever, no chills, remains on multiple meds as listed, remains on heparin. Labs were reviewed, PTT is therapeutic. PTT is 52 electrolytes were reviewed BUN is 64 creatinine is 1.70 WBC count is 14.9 hemoglobin is 11.2. Troponin is 11. On 10/18/2016, patient underwent ultrasound-guided pericardiocentesis for pericardial effusion with tamponade, 1400 ml of bloody effusion drained. Patient felt better since. Cytology on the pericardial effusion is pending, it is malignant unless proven otherwise. Labs were reviewed, PTT is 39.2. Renal profile is improving and his sodium is 127. Reevaluated today on 10/19/2016, seems to be doing better, no further episodes of hemoptysis, patient has some shortness of breath, more pericardial fluid was drained today by thoracic surgery, cytology is pending. Patient remains on anti -coagulation therapy, all labs were reviewed. Oncology staff is suggesting that the patient goes home on Coumadin. Reevaluated today on 10/20/2016, patient is about the same. 20 mL of pericardial effusion drained today by thoracic surgery staff. Cytology on the pericardial fluid is pending. Chest x-ray today continues to show right midlung mass, and possible infiltrate or atelectasis in the right lower lobe. Objective - Vital Signs Vital signs: Vital Signs Temp 96.9 F L 10/20/16 08:00 Pulse 53 L 10/20/16 08:00 Resp 18 10/20/16 08:00 BP 170/79 10/20/16 08:00 Pulse Ox 96 10/20/16 08:00 Intake & Output 10/19/16 10/20/16 10/20/16 18:59 06:59 18:59 Intake Total 714.4 1154.193 588.5 Output Total 365 Balance 349.4 1154.193 588.5 Weight 73.6 kg Intake: IV 378.4 861 0.9 NS @ 20ml/hr 160 480 Heparin Sodium,Porcine/ 218.4 381 D5w Pmx 25,000 unit In Dextrose/Water 1 500ml. bag @ 18 UNITS/KG/HR 27. 27 mls/hr IV .[id number] [facility] Rx#:[id number] Intake, IV Titration 293.193 168.5 Amount Heparin Sodium,Porcine/ 293.193 168.5 D5w Pmx 25,000 unit In Dextrose/Water 1 500ml. bag @ 12 UNITS/KG/HR 17. 97 mls/hr IV .Q24H [facility] Rx #:[id number] Oral 336 420 Output: Drainage 365 Medial Chest 365 Other: Voiding Method Bedside Commode Urinal - Exam Head exam was generally normal. There was no scleral icterus or corneal arcus. Mucous membranes were moist.Neck was supple and without jugular venous distension, thyromegaly, or carotid bruits. Carotids were easily palpable bilaterally. There was no adenopathy. Lung sounds are diminished bilaterally otherwise clear.Cardiac exam revealed the PMI to be normally situated and sized. The rhythm was regular and no extrasystoles were noted during several minutes of auscultation. The first and second heart sounds were normal and physiologic splitting of the second heart sound was noted. There were no murmurs , rubs, clicks, or gallops. Pericardiocentesis catheter is noted. Abdomen is slightly distended soft. No ascites. No direct tenderness no rebound, no guarding.Examination of the extremities revealed easily palpable radial, femoral and pedal pulses. There was no cyanosis, clubbing or edema. - Labs CBC & Chem 7: 10/20/16 02:34 10/20/16 02:34 Labs: Abnormal Lab Results - Last 24 Hours (Table) 10/19/16 10/19/16 10/20/16 Range/Units 14:20 14:20 02:34 WBC 15.9 H 15.5 H (3.8-10.6) k/uL RBC 3.79 L 4.05 L (4.30-5.90) m/uL Hgb 11.7 L 12.7 L (13.0-17.5) gm/dL Hct 35.9 L 38.4 L (39.0-53.0) % Plt Count 117 L 123 L (150-450) k/uL Neutrophils # (Manual) 14.70 H 14.33 H (1.3-7.7) k/uL Lymphocytes # (Manual) 0.16 L 0.47 L (1.0-4.8) k/uL Metamyelocytes # (Man) 0.16 H (0) k/uL Nucleated RBCs 5 H 4 H (0-0) /100 WBC INR 1.2 H (<1.2) APTT 30.5 H (22.0-30.0) sec Sodium (137-145) mmol/L Potassium (3.5-5.1) mmol/L BUN (9-20) mg/dL Glucose (74-99) mg/dL 10/20/16 10/20/16 10/20/16 Range/Units 02:34 02:34 09:12 WBC (3.8-10.6) k/uL RBC (4.30-5.90) m/uL Hgb (13.0-17.5) gm/dL Hct (39.0-53.0) % Plt Count (150-450) k/uL Neutrophils # (Manual) (1.3-7.7) k/uL Lymphocytes # (Manual) (1.0-4.8) k/uL Metamyelocytes # (Man) (0) k/uL Nucleated RBCs (0-0) /100 WBC INR 1.2 H (<1.2) APTT 31.6 H 49.8 H (22.0-30.0) sec Sodium 132 L (137-145) mmol/L Potassium 5.4 H (3.5-5.1) mmol/L BUN 43 H (9-20) mg/dL Glucose 146 H (74-99) mg/dL Assessment and Plan Plan: 1 acute pulmonary embolism with secondary shortness of breath and pleuritic chest pain, currently on IV heparin. Patient has metastatic lung cancer and the patient is currently being treated with brain radiation and systemic chemotherapy is to follow. As such he has probably an underlying hypercoagulability related to his metastatic lung cancer 2 metastatic adenocarcinoma of the lung with DESIGNER AND PATTERNMAKER involvement. The patient also has metastases to the bone and probably adrenal glands. A malignant pericardial effusion is also suspected. Completed brain radiation 3 DESIGNER AND PATTERNMAKER metastases, completed radiation 4 pericardial effusion with tamponade requiring pericardiocentesis on 2016. 5 thrombocytopenia 6 acute non-STEMI 7 new-onset atrial fibrillation currently oral amiodarone 200 mg by mouth twice a day metoprolol 12.5 mg twice a day. Echocardiogram was noted. 8 intermittent episodes of hemoptysis, could be related to his underlying lung cancer could also be related to his underlying pulmonary embolism. Continue to monitor until coagulation therapy, I believe the benefits of the treatment outweigh the risks at this point. However if his condition gets any worse, may have to consider a filter placement. Recommendation: Continue present supportive care measures, awaiting final pathology report from the pericardial effusion, further treatment plan regarding his extensive lung cancer is to be decided upon by oncology on the case. Prognosis is extremely poor and guarded. Time with Patient: Less than 30
[2016-10-20 14:52] VITALS: BMI 23.3
--- NOTE | 2016-10-20 16:31 | P.PN ---
Subjective Progress note being dictated for Dr. Haji. 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 Renal function improving. Sodium 127. Echo limited study, reporting evidence of cardiac tamponade, large global pericardial effusion. Underwent pericardiocentesis with 1400 MLS dark bloody drainage removed, cytology pending. Tolerated procedure well, states feels better post-procedure. 10/19/16 states shortness of breath improving since procedure, further pericardial fluid drainage this morning as per cardiothoracic surgery via pericardial catheter. Cytology pending. No hemoptysis reported. Afebrile. Telemetry sinus bradycardia, heart rates currently in the 40s-asymptomatic. Sodium improved, currently 134. 10/20/2016 20 MLS pericardial drainage from catheter. Chest x-ray reporting continued right midlung mass, bullous changes in the right apex, new patchy right basilar atelectasis versus infiltrate. Pericardio fluid Cytology reporting positive for metastatic poorly differentiated adenocarcinoma of the lungs. Potassium 5.4. Sodium 132. Objective - Vital Signs Vital signs: Vital Signs Temp 96.9 F L 10/20/16 08:00 Pulse 53 L 10/20/16 15:43 Resp 16 10/20/16 15:43 BP 171/77 10/20/16 15:43 Pulse Ox 96 10/20/16 08:00 Intake & Output 10/19/16 10/20/16 10/20/16 18:59 06:59 18:59 Intake Total 714.4 1154.193 708.5 Output Total 365 Balance 349.4 1154.193 708.5 Weight 73.6 kg 73.6 kg Intake: IV 378.4 861 0.9 NS @ 20ml/hr 160 480 Heparin Sodium,Porcine/ 218.4 381 D5w Pmx 25,000 unit In Dextrose/Water 1 500ml. bag @ 18 UNITS/KG/HR 27. 27 mls/hr IV .[id number] [facility] Rx#:[id number] Intake, IV Titration 293.193 168.5 Amount Heparin Sodium,Porcine/ 293.193 168.5 D5w Pmx 25,000 unit In Dextrose/Water 1 500ml. bag @ 12 UNITS/KG/HR 17. 97 mls/hr IV .Q24H [facility] Rx #:[id number] Oral 336 540 Output: Drainage 365 Medial Chest 365 Other: Voiding Method Bedside Commode Urinal # Voids 1 - Exam PHYSICAL EXAM: VITAL SIGNS: As above GENERAL: [Eating up in bed, no acute distress] HEENT: [Pupils equal conjunctiva normal.] NECK: [Supple, no JVD, no carotid bruits] RESPIRATORY EFFORT:[ Increased] LUNGS: [Bilateral bases diminished, no crackles, no rhonchi, no wheezes, CARDIOVASCULAR[ regular S1 S2, bradycardic, no murmurs, no edema. Pericardial catheter present. GI: [Abdomen soft, nontender, mildly distended, positive bowel sounds.] PSYCH: [Alert and oriented -3, mood and affect normal.] NEURO: No focal deficits - Labs CBC & Chem 7: 10/20/16 02:34 10/20/16 02:34 Labs: Abnormal Lab Results - Last 24 Hours (Table) 10/20/16 10/20/16 10/20/16 Range/Units 02:34 02:34 02:34 WBC 15.5 H (3.8-10.6) k/uL RBC 4.05 L (4.30-5.90) m/uL Hgb 12.7 L (13.0-17.5) gm/dL Hct 38.4 L (39.0-53.0) % Plt Count 123 L (150-450) k/uL Neutrophils # (Manual) 14.33 H (1.3-7.7) k/uL Lymphocytes # (Manual) 0.47 L (1.0-4.8) k/uL Nucleated RBCs 4 H (0-0) /100 WBC INR (<1.2) APTT 31.6 H (22.0-30.0) sec Sodium 132 L (137-145) mmol/L Potassium 5.4 H (3.5-5.1) mmol/L BUN 43 H (9-20) mg/dL Glucose 146 H (74-99) mg/dL 10/20/16 Range/Units 09:12 WBC (3.8-10.6) k/uL RBC (4.30-5.90) m/uL Hgb (13.0-17.5) gm/dL Hct (39.0-53.0) % Plt Count (150-450) k/uL Neutrophils # (Manual) (1.3-7.7) k/uL Lymphocytes # (Manual) (1.0-4.8) k/uL Nucleated RBCs (0-0) /100 WBC INR 1.2 H (<1.2) APTT 49.8 H (22.0-30.0) sec Sodium (137-145) mmol/L Potassium (3.5-5.1) mmol/L BUN (9-20) mg/dL Glucose (74-99) mg/dL Assessment and Plan Plan: 1. [ Chest pain, shortness of breath, acute pulmonary embolism]. 2. [ New-onset Atrial fibrillation with rapid ventricular rate, currently sinus bradycardia]. 3. [ Recently diagnosed poorly differentiated adenocarcinoma of right lung with brain and bone metastasis status post radiation]. 4. Pericardial effusion with tamponade, possibly malignant, status post pericardiocentesis, cytology reporting positive for metastatic poorly differentiated adenocarcinoma of the lung. 5. [ Elevated LFTs]. 6. [ Leukocytosis, possibly reactive]. 7. Acute non-STEMI Plan: Continue on current medication regime , Lopressor, amiodarone ,monitoring and symptomatic treatment. Aggressive pulmonary toileting. Cytology results as mentioned above. Further oncology recommendations pending. Potassium elevated today, close monitoring of electrolytes,hgb with repeat labs in a.m. Further recommendations to follow. Discharge planning in progress for potentially tomorrow. Anticoagulation at discharge as per oncology and cardiology. The impression and plan of care has been dictated as directed. : I performed a H&P examination of this patient and discussed the same with the dictator. I agree with the dictator's note. Any additional findings/opinions/ etc. will be noted.
[2016-10-20] MEDS ORDERED: WARFARIN 5 MG TAB PO ONE (18:00)
[2016-10-21] MEDS: METOPROLOL TARTRATE 25 MG TAB PO SCH (04:28)
[2016-10-21] MEDS: FUROSEMIDE 10 MG/ML 4 ML VIAL IV SCH (05:57)
[2016-10-21 05:58] LABS: Basophils % (A) 0 %; CH 31.8; CHCM 33.5; Eosinophils # (A) 0.1 k/uL (0-0.7); Eosinophils % (A) 1 %; HCT 38.8 % (39.0-53.0); HDW 2.55; HGB 12.3 gm/dL (13.0-17.5); Luc % (Auto) 1; Lymphocytes # (A) 0.2 k/uL (1.0-4.8); Lymphocytes % (A) 2 %; MCH 30.4 pg (25.0-35.0); MCHC 31.8 g/dL (31.0-37.0); MCV 95.6 fL (80.0-100.0); Mean Platelet Volume 8.5; Monocytes # (A) 0.3 k/uL (0-1.0); Monocytes % (A) 2 %; Neutrophils # (A) 11.7 k/uL (1.3-7.7); Neutrophils % (A) 94 %; RBC 4.06 m/uL (4.30-5.90); RDW 15.7 % (11.5-15.5); WBC 12.4 k/uL (3.8-10.6); WBC (Perox) 13.23
[2016-10-21 06:08] LABS: Anion Gap 4 mmol/L; Blood Urea Nitrogen 33 mg/dL (9-20); Calcium 8.1 mg/dL (8.4-10.2); Carbon Dioxide 31 mmol/L (22-30); Chloride 96 mmol/L (98-107); Glucose 122 mg/dL (74-99); Non-African American GFR(MDRD) >60 (>60 ml/min/1.73 sqM); Potassium 4.8 mmol/L (3.5-5.1); Sodium 131 mmol/L (137-145)
[2016-10-21] MEDS: PANTOPRAZOLE 40 MG TABLET PO SCH (06:38)
[2016-10-21] MEDS: HEPARIN SODIUM,PORCINE 5,000 UNIT/ML 1 ML VIAL IV PRN (06:38)
[2016-10-21] MEDS: HEPARIN SODIUM,PORCINE/D5W PMX 25,000 UNIT in DEXTROSE/WATER 1 500ML.BAG IV SCH (06:40)
[2016-10-21] MEDS: AMIODARONE 200 MG TAB PO SCH (06:44)
[2016-10-21 07:21] LABS: INR 1.2 (<1.2); Prothrombin Time 11.7 sec (9.0-12.0)
--- NOTE | 2016-10-21 07:45 | P.PN ---
<Romy Taylor - Last Filed: 10/21/16 07:38> Subjective Principal diagnosis: Pericardial effusion with tamponade. Acute pulmonary embolism. Metastatic adenocarcinoma of the lung with ENGLISH [employer] involvement. Thrombocytopenia. New-onset atrial fibrillation. Hypertension. Osteoarthritis. POD #3 percutaneous insertion of pericardial drain under echo guidance. Cytology results from pericardial fluid demonstrate metastatic poorly differentiated adenocarcinoma of the lung. Patient's currently sitting up in bed in no acute distress. Denies pain, states he does not feel short of breath at this moment. 1400 mL of bloody drainage was evacuated from the pericardial drain on October 18, 365 mL of bloody drainage was evacuated October 19, 20 mL drainage on the , 25 mL drainage this morning. Patient went back into A. fib RVR overnight. Objective - Vital Signs Vital signs: Vital Signs Temp 97.0 F L 10/21/16 03:37 Pulse 51 L 10/21/16 03:39 Resp 18 10/21/16 03:39 BP 131/72 10/21/16 06:48 Pulse Ox 95 10/21/16 05:51 Intake & Output 10/20/16 10/21/16 10/21/16 18:59 06:59 18:59 Intake Total 944.5 1146.449 Balance 944.5 1146.449 Weight 73.6 kg 70.3 kg Intake: IV 646 0.9 NS @ 20ml/hr 480 Heparin Sodium,Porcine/ 166 D5w Pmx 25,000 unit In Dextrose/Water 1 500ml. bag @ 12 UNITS/KG/HR 17. 97 mls/hr IV .Q24H [facility] Rx #:[id number] Intake, IV Titration 168.5 500.449 Amount Heparin Sodium,Porcine/ 168.5 500.449 D5w Pmx 25,000 unit In Dextrose/Water 1 500ml. bag @ 12 UNITS/KG/HR 17. 97 mls/hr IV .Q24H [facility] Rx #:[id number] Oral 776 Other: Voiding Method Toilet Urinal # Voids 1 - Constitutional General appearance: Present: cooperative, no acute distress - Respiratory Details: Lungs sounds diminished with inspiratory wheezes bilaterally. Respirations even , nonlabored. Currently on 4 L nasal cannula with oxygen saturation 95%. - Cardiovascular Details: S1, S2 present. Irregular, tachycardia rate and rhythm, A. fib with RVR on telemetry. No distant heart sounds. Palpable pulses bilaterally. Pericardial drain present, drained 25 mL fluid this morning. - Gastrointestinal Gastrointestinal Comment(s): Abdomen soft, nontender, nondistended. Active bowel sounds 4 quadrants. Tolerating diet. - Genitourinary Genitourinary Comment(s): Continues to void clear yellow urine. Was given IV Lasix yesterday with excellent diuresis. - Neurologic Neurologic: Present: CNII-XII intact - Musculoskeletal Musculoskeletal: Present: gait normal, strength equal bilaterally - Psychiatric Psychiatric: Present: A&O x's 3, appropriate affect, intact judgment & insight - Allied health notes Allied health notes reviewed: nursing - Labs CBC & Chem 7: 10/21/16 05:39 10/21/16 05:39 Labs: Abnormal Lab Results - Last 24 Hours (Table) 10/20/16 10/21/16 10/21/16 Range/Units 09:12 05:39 05:39 WBC 12.4 H (3.8-10.6) k/uL RBC 4.06 L (4.30-5.90) m/uL Hgb 12.3 L (13.0-17.5) gm/dL Hct 38.8 L (39.0-53.0) % RDW 15.7 H (11.5-15.5) % Plt Count 104 L (150-450) k/uL Neutrophils # 11.7 H (1.3-7.7) k/uL Lymphocytes # 0.2 L (1.0-4.8) k/uL INR 1.2 H (<1.2) APTT 49.8 H (22.0-30.0) sec Sodium 131 L (137-145) mmol/L Chloride 96 L (98-107) mmol/L Carbon Dioxide 31 H (22-30) mmol/L BUN 33 H (9-20) mg/dL Glucose 122 H (74-99) mg/dL Calcium 8.1 L (8.4-10.2) mg/dL 10/21/16 10/21/16 Range/Units 05:43 05:43 WBC (3.8-10.6) k/uL RBC (4.30-5.90) m/uL Hgb (13.0-17.5) gm/dL Hct (39.0-53.0) % RDW (11.5-15.5) % Plt Count (150-450) k/uL Neutrophils # (1.3-7.7) k/uL Lymphocytes # (1.0-4.8) k/uL INR 1.2 H (<1.2) APTT 41.8 H (22.0-30.0) sec Sodium (137-145) mmol/L Chloride (98-107) mmol/L Carbon Dioxide (22-30) mmol/L BUN (9-20) mg/dL Glucose (74-99) mg/dL Calcium (8.4-10.2) mg/dL Assessment and Plan (1) Atrial fibrillation with RVR Status: Acute (2) Chest pain Status: Acute (3) Lung cancer, primary, with metastasis from lung to other site Status: Acute (4) Mass of right lung Status: Acute (5) Pericardial effusion Status: Acute (6) Pulmonary embolism Status: Acute (7) Hypertension Status: Acute Plan: 1. Evacuated 25 ml bloody drainage today. Likely will discontinue pericardial drain today. 2. Amiodarone, Apresoline, Lopressor, aspirin and heparin per cardiology recommendations. 3. Medical management per primary care service. 4. Encourage incentive spirometry use. Wean O2 as tolerated. 5. Appreciate oncology recommendations. Pericardial cytology results demonstrated metastatic poorly differentiated adenocarcinoma of the lung. 6. Increase activity, ambulate in hallway. 7. More recommendations as patient progresses. Time with Patient: Greater than 30 <Sebastian Shrestha - Last Filed: 10/21/16 11:39> Objective - Vital Signs Vital signs: Vital Signs Temp 96.9 F L 10/21/16 11:30 Pulse 112 H 10/21/16 11:30 Resp 18 10/21/16 11:30 BP 106/55 10/21/16 11:30 Pulse Ox 92 L 10/21/16 11:30 Intake & Output 10/20/16 10/21/16 10/21/16 18:59 06:59 18:59 Intake Total 944.5 1146.449 Balance 944.5 1146.449 Weight 73.6 kg 70.3 kg Intake: IV 646 0.9 NS @ 20ml/hr 480 Heparin Sodium,Porcine/ 166 D5w Pmx 25,000 unit In Dextrose/Water 1 500ml. bag @ 12 UNITS/KG/HR 17. 97 mls/hr IV .Q24H [facility] Rx #:[id number] Intake, IV Titration 168.5 500.449 Amount Heparin Sodium,Porcine/ 168.5 500.449 D5w Pmx 25,000 unit In Dextrose/Water 1 500ml. bag @ 12 UNITS/KG/HR 17. 97 mls/hr IV .Q24H [facility] Rx #:[id number] Oral 776 Other: Voiding Method Toilet Toilet Urinal Urinal # Voids 1 - Labs CBC & Chem 7: 10/21/16 05:39 10/21/16 05:39 Labs: Abnormal Lab Results - Last 24 Hours (Table) 10/21/16 10/21/16 10/21/16 Range/Units 05:39 05:39 05:43 WBC 12.4 H (3.8-10.6) k/uL RBC 4.06 L (4.30-5.90) m/uL Hgb 12.3 L (13.0-17.5) gm/dL Hct 38.8 L (39.0-53.0) % RDW 15.7 H (11.5-15.5) % Plt Count 104 L (150-450) k/uL Neutrophils # 11.7 H (1.3-7.7) k/uL Lymphocytes # 0.2 L (1.0-4.8) k/uL INR (<1.2) APTT 41.8 H (22.0-30.0) sec Sodium 131 L (137-145) mmol/L Chloride 96 L (98-107) mmol/L Carbon Dioxide 31 H (22-30) mmol/L BUN 33 H (9-20) mg/dL Glucose 122 H (74-99) mg/dL Calcium 8.1 L (8.4-10.2) mg/dL 10/21/16 10/21/16 Range/Units 05:43 09:48 WBC (3.8-10.6) k/uL RBC (4.30-5.90) m/uL Hgb (13.0-17.5) gm/dL Hct (39.0-53.0) % RDW (11.5-15.5) % Plt Count (150-450) k/uL Neutrophils # (1.3-7.7) k/uL Lymphocytes # (1.0-4.8) k/uL INR 1.2 H (<1.2) APTT 56.2 H (22.0-30.0) sec Sodium (137-145) mmol/L Chloride (98-107) mmol/L Carbon Dioxide (22-30) mmol/L BUN (9-20) mg/dL Glucose (74-99) mg/dL Calcium (8.4-10.2) mg/dL Assessment and Plan Plan: The patient was seen and examined. I agree with the above assessment and plan. His recent echocardiogram revealed essentially resolution of his pericardial effusion. His daily drainage has been low. Overall he has been hemodynamically stable. We will plan on removing the drain at the bedside today.
[2016-10-21] MEDS: DOCUSATE 100 MG CAP PO SCH ×2 (09:09→21:30)
[2016-10-21] MEDS: hydrALAZINE HCL 25 MG TAB PO SCH ×3 (09:09→21:30)
[2016-10-21] MEDS: DEXAMETHASONE 4 MG TAB PO SCH ×2 (09:09→21:30)
[2016-10-21] MEDS: ASPIRIN 325 MG TAB PO SCH (09:09)
[2016-10-21] MEDS: ALPRAZolam 0.25 MG TAB PO SCH ×2 (09:09→21:30)
[2016-10-21] MEDS: HYDROCHLOROTHIAZIDE 25 MG TAB PO SCH (09:09)
--- NOTE | 2016-10-21 10:22 | ECHOF ---
Referral Reason:eval pericardial effusion MEASUREMENTS -------- HEIGHT: 182.9 cm WEIGHT: 73.5 kg BP: 159/91 FINDINGS -------- Resting bradycardia (HR<60bpm). Limited Study There is a trivial pericardial effusion present. CONCLUSIONS -------- 1. Resting bradycardia (HR<60bpm). 2. Limited Study 3. There is a trivial pericardial effusion present. WEAVING SUPERVISOR: Romy Long RDCS
[2016-10-21] MEDS ORDERED: METOPROLOL TARTRATE 50 MG TAB PO SCH (10:50)
--- NOTE | 2016-10-21 10:54 | P.PN ---
Subjective Principal diagnosis: Pericardial effusion This is a pleasant 55-year-old gentleman who was recently diagnosed with poorly differentiated adenocarcinoma the right lung, stage IV with involvement in the skeleton upper abdomen and brain metastasis and has been undergoing radiation, presented to the emergency department after developing acute onset of left-sided chest pain with associated shortness of breath and dizziness. The patient was found to have large pericardial effusion which get worse the following day and he was in respiratory distress and at that point he underwent pericardiocentesis with improvement in his symptoms. He has been in and out atrial fibrillation with RVR. Currently he is in A. fib with uncontrolled heart rate and he has been maintaining good blood pressure. I am going to increase the dose of metoprolol to 50 mg by mouth twice a day, give the patient 5 mg of Coumadin today, and continue the heparin until the INR is therapeutic. Overall the prognosis is very poor. Objective - Vital Signs Vital signs: Vital Signs Temp 96.8 F L 10/21/16 09:11 Pulse 73 10/21/16 09:11 Resp 20 10/21/16 09:11 BP 143/73 10/21/16 09:11 Pulse Ox 93 L 10/21/16 09:11 Intake & Output 10/20/16 10/21/16 10/21/16 18:59 06:59 18:59 Intake Total 944.5 1146.449 Balance 944.5 1146.449 Weight 73.6 kg 70.3 kg Intake: IV 646 0.9 NS @ 20ml/hr 480 Heparin Sodium,Porcine/ 166 D5w Pmx 25,000 unit In Dextrose/Water 1 500ml. bag @ 12 UNITS/KG/HR 17. 97 mls/hr IV .Q24H [facility] Rx #:[id number] Intake, IV Titration 168.5 500.449 Amount Heparin Sodium,Porcine/ 168.5 500.449 D5w Pmx 25,000 unit In Dextrose/Water 1 500ml. bag @ 12 UNITS/KG/HR 17. 97 mls/hr IV .Q24H [facility] Rx #:[id number] Oral 776 Other: Voiding Method Toilet Toilet Urinal Urinal # Voids 1 - Constitutional General appearance: Present: no acute distress - Respiratory Respiratory: bilateral: CTA - Cardiovascular Rhythm: regular Heart sounds: normal: S1, S2 - Labs CBC & Chem 7: 10/21/16 05:39 08/18/17 05:39 Labs: Abnormal Lab Results - Last 24 Hours (Table) 10/21/16 10/21/16 10/21/16 Range/Units 05:39 05:39 05:43 WBC 12.4 H (3.8-10.6) k/uL RBC 4.06 L (4.30-5.90) m/uL Hgb 12.3 L (13.0-17.5) gm/dL Hct 38.8 L (39.0-53.0) % RDW 15.7 H (11.5-15.5) % Plt Count 104 L (150-450) k/uL Neutrophils # 11.7 H (1.3-7.7) k/uL Lymphocytes # 0.2 L (1.0-4.8) k/uL INR (<1.2) APTT 41.8 H (22.0-30.0) sec Sodium 131 L (137-145) mmol/L Chloride 96 L (98-107) mmol/L Carbon Dioxide 31 H (22-30) mmol/L BUN 33 H (9-20) mg/dL Glucose 122 H (74-99) mg/dL Calcium 8.1 L (8.4-10.2) mg/dL 10/21/16 10/21/16 Range/Units 05:43 09:48 WBC (3.8-10.6) k/uL RBC (4.30-5.90) m/uL Hgb (13.0-17.5) gm/dL Hct (39.0-53.0) % RDW (11.5-15.5) % Plt Count (150-450) k/uL Neutrophils # (1.3-7.7) k/uL Lymphocytes # (1.0-4.8) k/uL INR 1.2 H (<1.2) APTT 56.2 H (22.0-30.0) sec Sodium (137-145) mmol/L Chloride (98-107) mmol/L Carbon Dioxide (22-30) mmol/L BUN (9-20) mg/dL Glucose (74-99) mg/dL Calcium (8.4-10.2) mg/dL Assessment and Plan Plan: This is a pleasant and 55-year-old gentleman with metastatic lung cancer who presented to the hospital with shortness of breath. He was diagnosed with a PE. Beside that he was found to have large pericardial effusion. Beside that the patient was in and out atrial fibrillation. I would increase the dose of metoprolol. Continue Coumadin for anticoagulation.
[2016-10-21] MEDS ORDERED: METOPROLOL TARTRATE 25 MG TAB PO STA (11:04)
--- NOTE | 2016-10-21 12:15 | P.PN ---
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 The patient presented to the hospital with an acute onset left sided pleuritic chest pain. No hemoptysis. No pleurisy. No swelling lower extremities. No prior history of any DVTs or pulmonary embolism. No angina. No syncope. CT angios the chest was done and showed positive pulmonary embolism. There was a mild burden on the right involving the right lower lobe and segmental and a couple of subsegmental branches in the left lung base. In addition, there was an enlarging right upper lobe mass measuring 7.3 cm in size in addition to enlarging satellite nodules and lymphadenopathy. Nodularity measuring 1.9 cm in the right adrenal gland. Pericardial effusion is also seen and an echocardiogram is to follow to make sure there is no evidence of temponad. He states that his been in good condition. He had been eating well. No nausea. No vomiting. No emesis. No syncope. No cardiac arrhythmias On 10/15/2016 the patient is essentially the same. He denies having any chest pain. Still on IV heparin. Troponin peaked at 11.0. He also went into atrial fibrillation and he was started on Cardizem drip for rate control. Echocardiogram was done regarding the possibility of cardiac tamponade. Results are still pending for now. Meanwhile, ultrasound of the abdomen was also done and there is nonspecific mild gallbladder wall thickening. No ascites. No findings to suggest acute cholecystitis. There is a small right- sided pleural effusion. Doppler of the lower extremities also negative. On 10/16/2016 the patient is being seen in follow-up. The patient is doing well. No specific complaints. Able to sit up on a chair. Echocardiogram was completed and that is no evidence of any cardiac component. The patient however has a large pericardial effusion which could be potentially malignant. Still on IV heparin. Amiodarone his oral 200 mg by mouth twice a day. Patient is also on metoprolol for rate control. Tolerating diet. Will be considered for oral anticoagulation with the next 24 hours. No hemoptysis. No pleurisy. Reevaluated on 10/17/2016, overall the patient is doing well, had few episodes of blood-tinged sputum/hemoptysis. Clinically patient is denying any shortness of breath, no chest pain, no fever, no chills, remains on multiple meds as listed, remains on heparin. Labs were reviewed, PTT is therapeutic. PTT is 52 electrolytes were reviewed BUN is 64 creatinine is 1.70 WBC count is 14.9 hemoglobin is 11.2. Troponin is 11. On 10/18/2016, patient underwent ultrasound-guided pericardiocentesis for pericardial effusion with tamponade, 1400 ml of bloody effusion drained. Patient felt better since. Cytology on the pericardial effusion is pending, it is malignant unless proven otherwise. Labs were reviewed, PTT is 39.2. Renal profile is improving and his sodium is 127. Reevaluated today on 10/19/2016, seems to be doing better, no further episodes of hemoptysis, patient has some shortness of breath, more pericardial fluid was drained today by thoracic surgery, cytology is pending. Patient remains on anti -coagulation therapy, all labs were reviewed. Oncology staff is suggesting that the patient goes home on Coumadin. Reevaluated today on 10/20/2016, patient is about the same. 20 mL of pericardial effusion drained today by thoracic surgery staff. Cytology on the pericardial fluid is pending. Chest x-ray today continues to show right midlung mass, and possible infiltrate or atelectasis in the right lower lobe. Patient was reevaluated today on 10/21/2016, patient is about the same, no changes over the last few days. His cytology from the pericardial fluid came back positive for lung cancer. Hence this is clearly a metastatic process related to his underlying bronchogenic carcinoma. Patient will be seen by oncology, and will rely on the further recommendations regarding treatment in the future or possibly comfort care measures. CBC was reviewed is relatively normal. Basic metabolic profile is relatively unremarkable. Clinically the patient denies any chest pain, he has chronic shortness of breath, no fever, no chills, and no further episodes of hemoptysis. Objective - Vital Signs Vital signs: Vital Signs Temp 96.9 F L 10/21/16 11:30 Pulse 112 H 10/21/16 11:30 Resp 18 10/21/16 11:30 BP 106/55 10/21/16 11:30 Pulse Ox 92 L 10/21/16 11:30 Intake & Output 10/20/16 10/21/16 10/21/16 18:59 06:59 18:59 Intake Total 944.5 1146.449 Balance 944.5 1146.449 Weight 73.6 kg 70.3 kg Intake: IV 646 0.9 NS @ 20ml/hr 480 Heparin Sodium,Porcine/ 166 D5w Pmx 25,000 unit In Dextrose/Water 1 500ml. bag @ 12 UNITS/KG/HR 17. 97 mls/hr IV .Q24H [facility] Rx #:[id number] Intake, IV Titration 168.5 500.449 Amount Heparin Sodium,Porcine/ 168.5 500.449 D5w Pmx 25,000 unit In Dextrose/Water 1 500ml. bag @ 12 UNITS/KG/HR 17. 97 mls/hr IV .Q24H [facility] Rx #:[id number] Oral 776 Other: Voiding Method Toilet Toilet Urinal Urinal # Voids 1 - Exam Head exam was generally normal. There was no scleral icterus or corneal arcus. Mucous membranes were moist.Neck was supple and without jugular venous distension, thyromegaly, or carotid bruits. Carotids were easily palpable bilaterally. There was no adenopathy. Lung sounds are diminished bilaterally otherwise clear.Cardiac exam revealed the PMI to be normally situated and sized. The rhythm was regular and no extrasystoles were noted during several minutes of auscultation. The first and second heart sounds were normal and physiologic splitting of the second heart sound was noted. There were no murmurs , rubs, clicks, or gallops. Pericardiocentesis catheter is noted. Abdomen is slightly distended soft. No ascites. No direct tenderness no rebound, no guarding.Examination of the extremities revealed easily palpable radial, femoral and pedal pulses. There was no cyanosis, clubbing or edema. - Labs CBC & Chem 7: 10/21/16 05:39 10/21/16 05:39 Labs: Abnormal Lab Results - Last 24 Hours (Table) 10/21/16 10/21/16 10/21/16 Range/Units 05:39 05:39 05:43 WBC 12.4 H (3.8-10.6) k/uL RBC 4.06 L (4.30-5.90) m/uL Hgb 12.3 L (13.0-17.5) gm/dL Hct 38.8 L (39.0-53.0) % RDW 15.7 H (11.5-15.5) % Plt Count 104 L (150-450) k/uL Neutrophils # 11.7 H (1.3-7.7) k/uL Lymphocytes # 0.2 L (1.0-4.8) k/uL INR (<1.2) APTT 41.8 H (22.0-30.0) sec Sodium 131 L (137-145) mmol/L Chloride 96 L (98-107) mmol/L Carbon Dioxide 31 H (22-30) mmol/L BUN 33 H (9-20) mg/dL Glucose 122 H (74-99) mg/dL Calcium 8.1 L (8.4-10.2) mg/dL 10/21/16 10/21/16 Range/Units 05:43 09:48 WBC (3.8-10.6) k/uL RBC (4.30-5.90) m/uL Hgb (13.0-17.5) gm/dL Hct (39.0-53.0) % RDW (11.5-15.5) % Plt Count (150-450) k/uL Neutrophils # (1.3-7.7) k/uL Lymphocytes # (1.0-4.8) k/uL INR 1.2 H (<1.2) APTT 56.2 H (22.0-30.0) sec Sodium (137-145) mmol/L Chloride (98-107) mmol/L Carbon Dioxide (22-30) mmol/L BUN (9-20) mg/dL Glucose (74-99) mg/dL Calcium (8.4-10.2) mg/dL Assessment and Plan Plan: 1 acute pulmonary embolism with secondary shortness of breath and pleuritic chest pain, currently on IV heparin. Patient has metastatic lung cancer and the patient is currently being treated with brain radiation and systemic chemotherapy is to follow. As such he has probably an underlying hypercoagulability related to his metastatic lung cancer 2 metastatic adenocarcinoma of the lung with EMBOSSING [employer] involvement. The patient also has metastases to the bone and probably adrenal glands. A malignant pericardial effusion is also suspected. 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 5 thrombocytopenia 6 acute non-STEMI 7 new-onset atrial fibrillation currently oral amiodarone 200 mg by mouth twice a day metoprolol 12.5 mg twice a day. Echocardiogram was noted. 8 intermittent episodes of hemoptysis, could be related to his underlying lung cancer could also be related to his underlying pulmonary embolism. Continue to monitor until coagulation therapy, I believe the benefits of the treatment outweigh the risks at this point. However if his condition gets any worse, may have to consider a filter placement. Recommendation: Continue present supportive care measures, discussed with the patient the cytology from the pericardial fluid, and I suggested that he discusses this further with oncologist on the case. Prognosis is definitely poor and guarded, we'll continue to follow. Time with Patient: Less than 30
--- NOTE | 2016-10-21 15:56 | P.PN ---
Subjective Progress note being dictated for Dr. Haji. 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 Renal function improving. Sodium 127. Echo limited study, reporting evidence of cardiac tamponade, large global pericardial effusion. Underwent pericardiocentesis with 1400 MLS dark bloody drainage removed, cytology pending. Tolerated procedure well, states feels better post-procedure. 10/19/16 states shortness of breath improving since procedure, further pericardial fluid drainage this morning as per cardiothoracic surgery via pericardial catheter. Cytology pending. No hemoptysis reported. Afebrile. Telemetry sinus bradycardia, heart rates currently in the 40s-asymptomatic. Sodium improved, currently 134. 10/20/2016 20 MLS pericardial drainage from catheter. Chest x-ray reporting continued right midlung mass, bullous changes in the right apex, new patchy right basilar atelectasis versus infiltrate. Pericardio fluid Cytology reporting positive for metastatic poorly differentiated adenocarcinoma of the lungs. Potassium 5.4. Sodium 132. 10/21/2016 returning to A. fib with RVR last night, beta geetha increased, earlier this afternoon developed 5 second pause then converted into sinus rhythm. Telemetry currently sinus bradycardia with heart rates in the high 30s. Amiodarone and beta geetha discontinued. 25 MLS drained from pericardial drain today. Cardiothoracic surgery discussing discontinuing pericardial drain. Potassium improving. Objective - Vital Signs Vital signs: Vital Signs Temp 96.9 F L 10/21/16 11:30 Pulse 112 H 10/21/16 11:30 Resp 18 10/21/16 11:30 BP 106/55 10/21/16 11:30 Pulse Ox 92 L 10/21/16 11:30 Intake & Output 10/20/16 10/21/16 10/21/16 18:59 06:59 18:59 Intake Total 944.5 1146.449 280 Balance 944.5 1146.449 280 Weight 73.6 kg 70.3 kg Intake: IV 646 160 0.9 NS @ 20ml/hr 480 160 Heparin Sodium,Porcine/ 166 D5w Pmx 25,000 unit In Dextrose/Water 1 500ml. bag @ 12 UNITS/KG/HR 17. 97 mls/hr IV .Q24H [facility] Rx #:[id number] Intake, IV Titration 168.5 500.449 Amount Heparin Sodium,Porcine/ 168.5 500.449 D5w Pmx 25,000 unit In Dextrose/Water 1 500ml. bag @ 12 UNITS/KG/HR 17. 97 mls/hr IV .Q24H [facility] Rx #:[id number] Oral 776 120 Other: Voiding Method Toilet Toilet Urinal Urinal # Voids 1 - Exam PHYSICAL EXAM: VITAL SIGNS: As above GENERAL: [Eating up in bed, drowsy] HEENT: [Pupils equal conjunctiva normal, oral mucosa moist.] NECK: [Supple, no JVD, no carotid bruits,no trachea deviation] RESPIRATORY EFFORT:[ Increased] LUNGS: [Bilateral bases diminished, no crackles, no rhonchi, no wheezes, CARDIOVASCULAR[ regular S1 S2, bradycardic, no murmurs, no edema. Pericardial catheter present. GI: [Abdomen soft, nontender, mildly distended, positive bowel sounds.] PSYCH: [Alert and oriented -2-3, mood and affect normal.] NEURO: No focal deficits. - Labs CBC & Chem 7: 10/21/16 05:39 10/21/16 05:39 Labs: Abnormal Lab Results - Last 24 Hours (Table) 10/21/16 10/21/16 10/21/16 Range/Units 05:39 05:39 05:43 WBC 12.4 H (3.8-10.6) k/uL RBC 4.06 L (4.30-5.90) m/uL Hgb 12.3 L (13.0-17.5) gm/dL Hct 38.8 L (39.0-53.0) % RDW 15.7 H (11.5-15.5) % Plt Count 104 L (150-450) k/uL Neutrophils # 11.7 H (1.3-7.7) k/uL Lymphocytes # 0.2 L (1.0-4.8) k/uL INR (<1.2) APTT 41.8 H (22.0-30.0) sec Sodium 131 L (137-145) mmol/L Chloride 96 L (98-107) mmol/L Carbon Dioxide 31 H (22-30) mmol/L BUN 33 H (9-20) mg/dL Glucose 122 H (74-99) mg/dL Calcium 8.1 L (8.4-10.2) mg/dL 10/21/16 10/21/16 Range/Units 05:43 09:48 WBC (3.8-10.6) k/uL RBC (4.30-5.90) m/uL Hgb (13.0-17.5) gm/dL Hct (39.0-53.0) % RDW (11.5-15.5) % Plt Count (150-450) k/uL Neutrophils # (1.3-7.7) k/uL Lymphocytes # (1.0-4.8) k/uL INR 1.2 H (<1.2) APTT 56.2 H (22.0-30.0) sec Sodium (137-145) mmol/L Chloride (98-107) mmol/L Carbon Dioxide (22-30) mmol/L BUN (9-20) mg/dL Glucose (74-99) mg/dL Calcium (8.4-10.2) mg/dL Assessment and Plan Plan: 1. [ Chest pain, shortness of breath, acute pulmonary embolism]. 2. [ New-onset Atrial fibrillation with rapid ventricular rate, currently sinus bradycardia]. 3. [ Recently diagnosed poorly differentiated adenocarcinoma of right lung with brain and bone metastasis status post radiation]. 4. Pericardial effusion with tamponade, possibly malignant, status post pericardiocentesis, cytology reporting positive for metastatic poorly differentiated adenocarcinoma of the lung. 5. [ Elevated LFTs]. 6. [ Leukocytosis, possibly reactive]. 7. Acute non-STEMI Plan: Continue on current medication regime ,monitoring and symptomatic treatment. Further oncology recommendations regarding Cytology results. As mentioned above cardiothoracic surgery discussing discontinuing pericardial drain. Anticoagulation as per oncology/cardiology. Discharge planning in progress. The impression and plan of care has been dictated as directed. : I performed a H&P examination of this patient and discussed the same with the dictator. I agree with the dictator's note. Any additional findings/opinions/ etc. will be noted.
--- NOTE | 2016-10-21 17:30 | P.PN ---
Subjective Principal diagnosis: Malignant pericardial effusion. The patient is improving slowly, though progress is not steady. He has been walking in the corridor, as well as sitting in the chair. Appetite is still variable. There is still significant generalized weakness. Objective - Vital Signs Vital signs: Vital Signs Temp 97 F L 10/21/16 15:45 Pulse 38 L 10/21/16 15:45 Resp 16 10/21/16 15:45 BP 119/67 10/21/16 15:45 Pulse Ox 97 10/21/16 15:45 Intake & Output 10/20/16 10/21/16 10/21/16 18:59 06:59 18:59 Intake Total 944.5 1146.449 280 Balance 944.5 1146.449 280 Weight 73.6 kg 70.3 kg Intake: IV 646 160 0.9 NS @ 20ml/hr 480 160 Heparin Sodium,Porcine/ 166 D5w Pmx 25,000 unit In Dextrose/Water 1 500ml. bag @ 12 UNITS/KG/HR 17. 97 mls/hr IV .Q24H [facility] Rx #:[id number] Intake, IV Titration 168.5 500.449 Amount Heparin Sodium,Porcine/ 168.5 500.449 D5w Pmx 25,000 unit In Dextrose/Water 1 500ml. bag @ 12 UNITS/KG/HR 17. 97 mls/hr IV .Q24H [facility] Rx #:[id number] Oral 776 120 Other: Voiding Method Toilet Toilet Urinal Urinal # Voids 1 - Constitutional General appearance: Present: no acute distress - EENT Eyes: Present: EOMI, PERRLA ENT: Present: hearing grossly normal, normal oropharynx - Respiratory Respiratory: bilateral: diminished - Cardiovascular Rhythm: regular Heart sounds: normal: S1, S2 - Gastrointestinal General gastrointestinal: Present: normal bowel sounds, soft - Integumentary Integumentary: Present: normal - Neurologic Neurologic: Present: CNII-XII intact - Musculoskeletal Musculoskeletal: Present: generalized weakness, strength equal bilaterally - Psychiatric Psychiatric: Present: A&O x's 3, appropriate affect - Labs CBC & Chem 7: 10/21/16 05:39 10/21/16 05:39 Labs: Abnormal Lab Results - Last 24 Hours (Table) 10/21/16 10/21/16 10/21/16 Range/Units 05:39 05:39 05:43 WBC 12.4 H (3.8-10.6) k/uL RBC 4.06 L (4.30-5.90) m/uL Hgb 12.3 L (13.0-17.5) gm/dL Hct 38.8 L (39.0-53.0) % RDW 15.7 H (11.5-15.5) % Plt Count 104 L (150-450) k/uL Neutrophils # 11.7 H (1.3-7.7) k/uL Lymphocytes # 0.2 L (1.0-4.8) k/uL INR (<1.2) APTT 41.8 H (22.0-30.0) sec Sodium 131 L (137-145) mmol/L Chloride 96 L (98-107) mmol/L Carbon Dioxide 31 H (22-30) mmol/L BUN 33 H (9-20) mg/dL Glucose 122 H (74-99) mg/dL Calcium 8.1 L (8.4-10.2) mg/dL 10/21/16 10/21/16 Range/Units 05:43 09:48 WBC (3.8-10.6) k/uL RBC (4.30-5.90) m/uL Hgb (13.0-17.5) gm/dL Hct (39.0-53.0) % RDW (11.5-15.5) % Plt Count (150-450) k/uL Neutrophils # (1.3-7.7) k/uL Lymphocytes # (1.0-4.8) k/uL INR 1.2 H (<1.2) APTT 56.2 H (22.0-30.0) sec Sodium (137-145) mmol/L Chloride (98-107) mmol/L Carbon Dioxide (22-30) mmol/L BUN (9-20) mg/dL Glucose (74-99) mg/dL Calcium (8.4-10.2) mg/dL Assessment and Plan (1) Pulmonary embolism Narrative/Plan: The patient's assessment he status is stable, after drainage of the pericardial effusion. He continues on IV heparin, and is being transitioned over to Coumadin. No untoward bleeding has been noted. Status: Acute (2) Pericardial effusion Narrative/Plan: Cytology was positive, as expected. The patient is improved after drainage. The drain tube has been removed. Status: Acute (3) Lung cancer, primary, with metastasis from lung to other site Narrative/Plan: The patient's malignancy revealed positive staining for PDL- 1, and greater than 50%. This indicates that he is a candidate for upfront checkpoint inhibitor immune therapy. The paperwork to obtain the same has been submitted. At this time, the patient's performance status is improving slowly. Therefore , at this time the intention is to treat him actively, on discharge. It was discussed with the family, that initiation of treatment would ideally require some further improvement in his performance status. Status: Acute
[2016-10-21] MEDS ORDERED: WARFARIN 5 MG TAB PO ONE (18:00)
[2016-10-21] MEDS: HYDROmorphone 1 MG/ML 1 ML SYRINGE IVP PRN (20:25)
[2016-10-22] MEDS: HYDROmorphone 1 MG/ML 1 ML SYRINGE IVP PRN ×5 (05:05→22:59)
[2016-10-22 06:05] LABS: Basophils # (A) 0.1 k/uL (0-0.2); Basophils % (A) 0 %; CH 31.6; CHCM 33.3; Eosinophils # (A) 0.1 k/uL (0-0.7); Eosinophils % (A) 1 %; HDW 2.57; HGB 12.5 gm/dL (13.0-17.5); Luc % (Auto) 1; Lymphocytes # (A) 0.2 k/uL (1.0-4.8); Lymphocytes % (A) 2 %; MCH 31.4 pg (25.0-35.0); MCHC 32.9 g/dL (31.0-37.0); MCV 95.5 fL (80.0-100.0); Mean Platelet Volume 8.7; Monocytes # (A) 0.3 k/uL (0-1.0); Monocytes % (A) 2 %; Neutrophils % (A) 94 %; RBC 3.98 m/uL (4.30-5.90); RDW 15.4 % (11.5-15.5); WBC 12.7 k/uL (3.8-10.6); WBC (Perox) 13.28
[2016-10-22] MEDS: PANTOPRAZOLE 40 MG TABLET PO SCH (06:43)
[2016-10-22 08:01] LABS: INR 1.5 (<1.2); Prothrombin Time 14.6 sec (9.0-12.0)
[2016-10-22] MEDS: ASPIRIN 325 MG TAB PO SCH (08:16)
[2016-10-22] MEDS: ALPRAZolam 0.25 MG TAB PO SCH ×2 (08:16→20:11)
[2016-10-22] MEDS: DOCUSATE 100 MG CAP PO SCH ×2 (08:17→20:11)
[2016-10-22] MEDS: HYDROCHLOROTHIAZIDE 25 MG TAB PO SCH (08:17)
[2016-10-22] MEDS: hydrALAZINE HCL 25 MG TAB PO SCH ×3 (08:17→20:10)
[2016-10-22] MEDS: DEXAMETHASONE 4 MG TAB PO SCH ×2 (08:17→20:10)
[2016-10-22] MEDS: FUROSEMIDE 10 MG/ML 4 ML VIAL IV SCH (08:17)
[2016-10-22] MEDS: HEPARIN SODIUM,PORCINE/D5W PMX 25,000 UNIT in DEXTROSE/WATER 1 500ML.BAG IV SCH (08:17)
--- NOTE | 2016-10-22 08:33 | P.PN ---
<Romy Taylor - Last Filed: 10/22/16 08:27> Subjective Principal diagnosis: Pericardial effusion with tamponade. Acute pulmonary embolism. Metastatic adenocarcinoma of the lung with [employer] involvement. Thrombocytopenia. New-onset atrial fibrillation. Hypertension. Osteoarthritis. POD #4 percutaneous insertion of pericardial drain under echo guidance. Cytology results from pericardial fluid demonstrate metastatic poorly differentiated adenocarcinoma of the lung. Patient's currently sitting up in bed in no acute distress. Denies pain, states he does not feel short of breath at this moment. 1400 mL of bloody drainage was evacuated from the pericardial drain on October 18, 365 mL of bloody drainage was evacuated October 19, 20 mL drainage on the , 25 mL drainage October 21. Pericardial drain discontinued yesterday. Objective - Vital Signs Vital signs: Vital Signs Temp 97 F L 10/22/16 08:17 Pulse 54 L 10/22/16 08:17 Resp 20 10/22/16 08:17 BP 150/71 10/22/16 08:17 Pulse Ox 94 L 10/22/16 08:17 Intake & Output 10/21/16 10/22/16 10/22/16 18:59 06:59 18:59 Intake Total 280 1299.551 Balance 280 1299.551 Weight 62.5 kg Intake: IV 160 800 0.9 NS @ 20ml/hr 160 320 heparin 480 Intake, IV Titration 499.551 Amount Heparin Sodium,Porcine/ 499.551 D5w Pmx 25,000 unit In Dextrose/Water 1 500ml. bag @ 12 UNITS/KG/HR 17. 97 mls/hr IV .Q24H [facility] Rx #:[id number] Oral 120 Other: Voiding Method Toilet Toilet Urinal Urinal - Constitutional General appearance: Present: cooperative, no acute distress - Respiratory Details: Lungs sounds diminished bilaterally with expiratory wheezes present. Respirations even, nonlabored. Currently on 4 L nasal cannula with oxygen saturations 97%. - Cardiovascular Details: S1, S2 present. Bradycardic rate and rhythm, sinus bradycardia on telemetry. No distant heart sounds noted. Palpable pulses bilaterally. No edema present. - Gastrointestinal Gastrointestinal Comment(s): Abdomen soft, nontender, nondistended. Active bowel sounds 4 quadrants. Tolerating diet. - Genitourinary Genitourinary Comment(s): Continues to void. - Integumentary Integumentary Comment(s): Anterior chest drain site covered with dry intact dressing. - Musculoskeletal Musculoskeletal: Present: gait normal, strength equal bilaterally - Psychiatric Psychiatric: Present: A&O x's 3, appropriate affect, intact judgment & insight - Allied health notes Allied health notes reviewed: nursing - Labs CBC & Chem 7: 10/22/16 05:28 10/21/16 05:39 Labs: Abnormal Lab Results - Last 24 Hours (Table) 10/21/16 10/22/16 10/22/16 Range/Units 09:48 05:28 05:28 WBC 12.7 H (3.8-10.6) k/uL RBC 3.98 L (4.30-5.90) m/uL Hgb 12.5 L (13.0-17.5) gm/dL Hct 38.0 L (39.0-53.0) % Plt Count 104 L (150-450) k/uL Neutrophils # 12.0 H (1.3-7.7) k/uL Lymphocytes # 0.2 L (1.0-4.8) k/uL PT (9.0-12.0) sec INR (<1.2) APTT 56.2 H 46.8 H (22.0-30.0) sec 10/22/16 Range/Units 05:28 WBC (3.8-10.6) k/uL RBC (4.30-5.90) m/uL Hgb (13.0-17.5) gm/dL Hct (39.0-53.0) % Plt Count (150-450) k/uL Neutrophils # (1.3-7.7) k/uL Lymphocytes # (1.0-4.8) k/uL PT 14.6 H (9.0-12.0) sec INR 1.5 H (<1.2) APTT (22.0-30.0) sec Assessment and Plan (1) Atrial fibrillation with RVR Status: Acute (2) Chest pain Status: Acute (3) Lung cancer, primary, with metastasis from lung to other site Status: Acute (4) Mass of right lung Status: Acute (5) Pericardial effusion Status: Acute (6) Pulmonary embolism Status: Acute (7) Hypertension Status: Acute Plan: 1. Amiodarone, Apresoline, Lopressor, aspirin and heparin per cardiology recommendations. 2. Medical management per primary care service. 3. Encourage incentive spirometry use. Wean O2 as tolerated. 4. Pericardial cytology results demonstrated metastatic poorly differentiated adenocarcinoma of the lung. Oncology recommendations for immunotherapy was patient is stronger. 5. Increase activity, ambulate in hallway. 6. Will continue to see as needed. Please contact us with any questions. Time with Patient: Greater than 30 <Sebastian Shrestha - Last Filed: 10/22/16 11:54> Objective - Vital Signs Vital signs: Vital Signs Temp 96.9 F L 10/22/16 11:29 Pulse 52 L 10/22/16 11:29 Resp 18 10/22/16 11:29 BP 142/71 10/22/16 11:29 Pulse Ox 92 L 10/22/16 11:29 Intake & Output 10/21/16 10/22/16 10/22/16 18:59 06:59 18:59 Intake Total 280 1299.551 80.677 Balance 280 1299.551 80.677 Weight 62.5 kg Intake: IV 160 800 0.9 NS @ 20ml/hr 160 320 heparin 480 Intake, IV Titration 499.551 80.677 Amount Heparin Sodium,Porcine/ 499.551 80.677 D5w Pmx 25,000 unit In Dextrose/Water 1 500ml. bag @ 12 UNITS/KG/HR 17. 97 mls/hr IV .Q24H [facility] Rx #:[id number] Oral 120 Other: Voiding Method Toilet Toilet Toilet Urinal Urinal Urinal # Voids 1 - Labs CBC & Chem 7: 10/22/16 05:28 10/21/16 05:39 Labs: Abnormal Lab Results - Last 24 Hours (Table) 10/22/16 10/22/16 10/22/16 Range/Units 05:28 05:28 05:28 WBC 12.7 H (3.8-10.6) k/uL RBC 3.98 L (4.30-5.90) m/uL Hgb 12.5 L (13.0-17.5) gm/dL Hct 38.0 L (39.0-53.0) % Plt Count 104 L (150-450) k/uL Neutrophils # 12.0 H (1.3-7.7) k/uL Lymphocytes # 0.2 L (1.0-4.8) k/uL PT 14.6 H (9.0-12.0) sec INR 1.5 H (<1.2) APTT 46.8 H (22.0-30.0) sec 10/22/16 Range/Units 10:08 WBC (3.8-10.6) k/uL RBC (4.30-5.90) m/uL Hgb (13.0-17.5) gm/dL Hct (39.0-53.0) % Plt Count (150-450) k/uL Neutrophils # (1.3-7.7) k/uL Lymphocytes # (1.0-4.8) k/uL PT (9.0-12.0) sec INR (<1.2) APTT 46.5 H (22.0-30.0) sec Assessment and Plan Plan: The patient's pericardial drain was removed yesterday. He has no new complaints today. Further care to be determined by the primary service. Please call us with any questions.
--- NOTE | 2016-10-22 11:23 | P.PN ---
Subjective Principal diagnosis: Pericardial effusion This is a pleasant 55-year-old gentleman who was recently diagnosed with poorly differentiated adenocarcinoma the right lung, stage IV, with involvement of the [employer], was about to complete brain radiation therapy and be initiated on chemotherapy. He presented to the hospital initially with symptoms of left-sided pleuritic type chest pain. Cardiology consultation was requested because of a significant pericardial effusion. Patient did undergo percutaneous insertion of a pericardial drain under echo guidance yesterday, 1400 mL of bloody pericardial fluid was removed at that time. Again today the patient underwent drainage of approximately 400 mL of pericardial bloody fluid. Cytology is pending. Overall the patient states that he feels slightly better today. Complaining of feeling weak.: Oncology's recommendation is that the patient stay on Coumadin. We will therefore continue the IV heparin, give the patient another 5 mg of Coumadin today. Check daily PT/INR. 10/20/2016 Patient seen and examined this morning, he just returned back from the bathroom , was quite short of breath. Seems to be worse as compared with yesterday. We will request a chest x-ray be performed portably. We will also give the patient one time dose of 40 mg IV Lasix now. INR 1.3 today we will give an additional 5 mg of Coumadin today. 10/22/2016 Patient seen and examined this morning, sitting up in bed comfortably, denies any pain, denies any shortness of breath. In normal sinus rhythm, heart rate in the 60s this morning. INR pending. We will give the patient 5 mg of Coumadin today. Objective - Vital Signs Vital signs: Vital Signs Temp 97 F L 10/22/16 08:17 Pulse 54 L 10/22/16 08:17 Resp 20 10/22/16 08:17 BP 150/71 10/22/16 08:17 Pulse Ox 94 L 10/22/16 09:00 Intake & Output 10/21/16 10/22/16 10/22/16 18:59 06:59 18:59 Intake Total 280 1299.551 80.677 Balance 280 1299.551 80.677 Weight 62.5 kg Intake: IV 160 800 0.9 NS @ 20ml/hr 160 320 heparin 480 Intake, IV Titration 499.551 80.677 Amount Heparin Sodium,Porcine/ 499.551 80.677 D5w Pmx 25,000 unit In Dextrose/Water 1 500ml. bag @ 12 UNITS/KG/HR 17. 97 mls/hr IV .Q24H [facility] Rx #:[id number] Oral 120 Other: Voiding Method Toilet Toilet Toilet Urinal Urinal Urinal # Voids 1 - Exam PHYSICAL EXAMINATION: HEENT: Head is atraumatic, normocephalic. Pupils equal, round. Neck is supple. There is no elevated jugular venous pressure. HEART EXAMINATION: Heart S1, S2 normal. No murmur or gallop heard. CHEST EXAMINATION: Lungs are clear with mild diminished air entry to the bases. Pericardiocentesis catheter is noted ABDOMEN: Soft, nontender. Bowel sounds are heard. No organomegaly noted. EXTREMITIES: 2+ peripheral pulses with no evidence of peripheral edema and no calf tenderness noted. NEUROLOGIC patient is awake, alert and oriented -3. . - Labs CBC & Chem 7: 10/22/16 05:28 10/21/16 05:39 Labs: Abnormal Lab Results - Last 24 Hours (Table) 10/22/16 10/22/16 10/22/16 Range/Units 05:28 05:28 05:28 WBC 12.7 H (3.8-10.6) k/uL RBC 3.98 L (4.30-5.90) m/uL Hgb 12.5 L (13.0-17.5) gm/dL Hct 38.0 L (39.0-53.0) % Plt Count 104 L (150-450) k/uL Neutrophils # 12.0 H (1.3-7.7) k/uL Lymphocytes # 0.2 L (1.0-4.8) k/uL PT 14.6 H (9.0-12.0) sec INR 1.5 H (<1.2) APTT 46.8 H (22.0-30.0) sec 10/22/16 Range/Units 10:08 WBC (3.8-10.6) k/uL RBC (4.30-5.90) m/uL Hgb (13.0-17.5) gm/dL Hct (39.0-53.0) % Plt Count (150-450) k/uL Neutrophils # (1.3-7.7) k/uL Lymphocytes # (1.0-4.8) k/uL PT (9.0-12.0) sec INR (<1.2) APTT 46.5 H (22.0-30.0) sec Assessment and Plan (1) Brain metastases Status: Acute (2) Paroxysmal atrial fibrillation Status: Acute (3) Lung cancer, primary, with metastasis from lung to other site Status: Acute (4) Mass of right lung Status: Acute (5) Pericardial effusion Status: Acute (6) Pulmonary embolism Status: Acute (7) Hypertension Status: Acute Plan: From cardiology's perspective, we will give the patient 5 mg of Coumadin today, we'll check daily PT/INRs. Continue current dose of beta geetha. DNP note has been reviewed, I agree with a documented findings and plan of care. Patient was seen and examined.
--- NOTE | 2016-10-22 11:33 | P.PN ---
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 The patient presented to the hospital with an acute onset left sided pleuritic chest pain. No hemoptysis. No pleurisy. No swelling lower extremities. No prior history of any DVTs or pulmonary embolism. No angina. No syncope. CT angios the chest was done and showed positive pulmonary embolism. There was a mild burden on the right involving the right lower lobe and segmental and a couple of subsegmental branches in the left lung base. In addition, there was an enlarging right upper lobe mass measuring 7.3 cm in size in addition to enlarging satellite nodules and lymphadenopathy. Nodularity measuring 1.9 cm in the right adrenal gland. Pericardial effusion is also seen and an echocardiogram is to follow to make sure there is no evidence of temponad. He states that his been in good condition. He had been eating well. No nausea. No vomiting. No emesis. No syncope. No cardiac arrhythmias On 10/15/2016 the patient is essentially the same. He denies having any chest pain. Still on IV heparin. Troponin peaked at 11.0. He also went into atrial fibrillation and he was started on Cardizem drip for rate control. Echocardiogram was done regarding the possibility of cardiac tamponade. Results are still pending for now. Meanwhile, ultrasound of the abdomen was also done and there is nonspecific mild gallbladder wall thickening. No ascites. No findings to suggest acute cholecystitis. There is a small right- sided pleural effusion. Doppler of the lower extremities also negative. On 10/16/2016 the patient is being seen in follow-up. The patient is doing well. No specific complaints. Able to sit up on a chair. Echocardiogram was completed and that is no evidence of any cardiac component. The patient however has a large pericardial effusion which could be potentially malignant. Still on IV heparin. Amiodarone his oral 200 mg by mouth twice a day. Patient is also on metoprolol for rate control. Tolerating diet. Will be considered for oral anticoagulation with the next 24 hours. No hemoptysis. No pleurisy. Reevaluated on 10/17/2016, overall the patient is doing well, had few episodes of blood-tinged sputum/hemoptysis. Clinically patient is denying any shortness of breath, no chest pain, no fever, no chills, remains on multiple meds as listed, remains on heparin. Labs were reviewed, PTT is therapeutic. PTT is 52 electrolytes were reviewed BUN is 64 creatinine is 1.70 WBC count is 14.9 hemoglobin is 11.2. Troponin is 11. On 10/18/2016, patient underwent ultrasound-guided pericardiocentesis for pericardial effusion with tamponade, 1400 ml of bloody effusion drained. Patient felt better since. Cytology on the pericardial effusion is pending, it is malignant unless proven otherwise. Labs were reviewed, PTT is 39.2. Renal profile is improving and his sodium is 127. Reevaluated today on 10/19/2016, seems to be doing better, no further episodes of hemoptysis, patient has some shortness of breath, more pericardial fluid was drained today by thoracic surgery, cytology is pending. Patient remains on anti -coagulation therapy, all labs were reviewed. Oncology staff is suggesting that the patient goes home on Coumadin. Reevaluated today on 10/20/2016, patient is about the same. 20 mL of pericardial effusion drained today by thoracic surgery staff. Cytology on the pericardial fluid is pending. Chest x-ray today continues to show right midlung mass, and possible infiltrate or atelectasis in the right lower lobe. Patient was reevaluated today on 10/21/2016, patient is about the same, no changes over the last few days. His cytology from the pericardial fluid came back positive for lung cancer. Hence this is clearly a metastatic process related to his underlying bronchogenic carcinoma. Patient will be seen by oncology, and will rely on the further recommendations regarding treatment in the future or possibly comfort care measures. CBC was reviewed is relatively normal. Basic metabolic profile is relatively unremarkable. Clinically the patient denies any chest pain, he has chronic shortness of breath, no fever, no chills, and no further episodes of hemoptysis. Reevaluated today on 10/22/2016, patient was seen yesterday by oncology, and it was felt that the patient may be considered for upfront checkpoint inhibitor immunotherapy. Paperwork has been submitted. The main goal is hopefully getting the patient discharged home if possible. CBC was reviewed seems to be relatively normal. PTT is 46.5. Patient is already on Coumadin. This was restarted today. Objective - Vital Signs Vital signs: Vital Signs Temp 96.9 F L 10/22/16 11:29 Pulse 52 L 10/22/16 11:29 Resp 18 10/22/16 11:29 BP 142/71 10/22/16 11:29 Pulse Ox 92 L 10/22/16 11:29 Intake & Output 10/21/16 10/22/16 10/22/16 18:59 06:59 18:59 Intake Total 280 1299.551 80.677 Balance 280 1299.551 80.677 Weight 62.5 kg Intake: IV 160 800 0.9 NS @ 20ml/hr 160 320 heparin 480 Intake, IV Titration 499.551 80.677 Amount Heparin Sodium,Porcine/ 499.551 80.677 D5w Pmx 25,000 unit In Dextrose/Water 1 500ml. bag @ 12 UNITS/KG/HR 17. 97 mls/hr IV .Q24H [facility] Rx #:[id number] Oral 120 Other: Voiding Method Toilet Toilet Toilet Urinal Urinal Urinal # Voids 1 - Exam Physical Exam: Revealed a 55-year-old, frail and cachectic, chronically ill- looking. HEENT:[Neck is supple.] [No neck masses.] [No thyromegaly.] [No JVD.] Chest: [Rhonchi noted bilaterally more so on the right side..] Cardiac Exam: [Normal S1 and S2, no S3 gallop, no murmur.] Abdomen: [Soft, nontender, no megaly, no rebound, no guarding, normal bowel sounds.] Extremities: [No clubbing, no edema, no cyanosis.] Neurological Exam: [No focal neurologic deficit.] - Labs CBC & Chem 7: 10/22/16 05:28 10/21/16 05:39 Labs: Abnormal Lab Results - Last 24 Hours (Table) 10/22/16 10/22/16 10/22/16 Range/Units 05:28 05:28 05:28 WBC 12.7 H (3.8-10.6) k/uL RBC 3.98 L (4.30-5.90) m/uL Hgb 12.5 L (13.0-17.5) gm/dL Hct 38.0 L (39.0-53.0) % Plt Count 104 L (150-450) k/uL Neutrophils # 12.0 H (1.3-7.7) k/uL Lymphocytes # 0.2 L (1.0-4.8) k/uL PT 14.6 H (9.0-12.0) sec INR 1.5 H (<1.2) APTT 46.8 H (22.0-30.0) sec 10/22/16 Range/Units 10:08 WBC (3.8-10.6) k/uL RBC (4.30-5.90) m/uL Hgb (13.0-17.5) gm/dL Hct (39.0-53.0) % Plt Count (150-450) k/uL Neutrophils # (1.3-7.7) k/uL Lymphocytes # (1.0-4.8) k/uL PT (9.0-12.0) sec INR (<1.2) APTT 46.5 H (22.0-30.0) sec Assessment and Plan Plan: 1 acute pulmonary embolism with secondary shortness of breath and pleuritic chest pain, currently on IV heparin. Patient has metastatic lung cancer and the patient is currently being treated with brain radiation and systemic chemotherapy is to follow. As such he has probably an underlying hypercoagulability related to his metastatic lung cancer 2 metastatic adenocarcinoma of the lung with MARKETING DESIGNER involvement. The patient also has metastases to the bone and probably adrenal glands. A malignant pericardial effusion is also suspected. Completed brain radiation 3 MARKETING DESIGNER metastases, completed radiation 4 pericardial effusion with tamponade requiring pericardiocentesis on 2016. 5 thrombocytopenia 6 acute non-STEMI 7 new-onset atrial fibrillation currently oral amiodarone 200 mg by mouth twice a day metoprolol 12.5 mg twice a day. Echocardiogram was noted. 8 intermittent episodes of hemoptysis, could be related to his underlying lung cancer could also be related to his underlying pulmonary embolism. Continue to monitor until coagulation therapy, I believe the benefits of the treatment outweigh the risks at this point. However if his condition gets any worse, may have to consider a filter placement. Recommendation: Continue present supportive care measures, plan on discharge planning early next week on Coumadin. We will hopefully get his level therapeutic. Time with Patient: Less than 30
[2016-10-22] MEDS ORDERED: HYDROmorphone 1 MG/ML 1 ML SYRINGE IVP PRN (12:49)
--- NOTE | 2016-10-22 14:11 | P.PN ---
Subjective Progress note being dictated for Dr. Haji. 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 Renal function improving. Sodium 127. Echo limited study, reporting evidence of cardiac tamponade, large global pericardial effusion. Underwent pericardiocentesis with 1400 MLS dark bloody drainage removed, cytology pending. Tolerated procedure well, states feels better post-procedure. 10/19/16 states shortness of breath improving since procedure, further pericardial fluid drainage this morning as per cardiothoracic surgery via pericardial catheter. Cytology pending. No hemoptysis reported. Afebrile. Telemetry sinus bradycardia, heart rates currently in the 40s-asymptomatic. Sodium improved, currently 134. 10/20/2016 20 MLS pericardial drainage from catheter. Chest x-ray reporting continued right midlung mass, bullous changes in the right apex, new patchy right basilar atelectasis versus infiltrate. Pericardio fluid Cytology reporting positive for metastatic poorly differentiated adenocarcinoma of the lungs. Potassium 5.4. Sodium 132. 10/21/2016 returning to A. fib with RVR last night, beta geetha increased, earlier this afternoon developed 5 second pause then converted into sinus rhythm. Telemetry currently sinus bradycardia with heart rates in the high 30s. Amiodarone and beta geetha discontinued. 25 MLS drained from pericardial drain today. Cardiothoracic surgery discussing discontinuing pericardial drain. Potassium improving. 10/22/2016. Pericardial catheter discontinued yesterday. Tired appearing, had a 6 beat run of V. tach last night, asymptomatic telemetry reporting sinus bradycardia in the 50s with junctional beats. Oncology discussed options of immunotherapy yesterday. Patient is extremely weak. Anticoagulated on Coumadin. INR 1.5. Met with and sister, discussed informational hospice meeting, comfort care. is agreeable to informational hospice meeting, considering hospice house, or [facility]. Objective - Vital Signs Vital signs: Vital Signs Temp 96.9 F L 10/22/16 11:29 Pulse 52 L 10/22/16 11:29 Resp 18 10/22/16 11:29 BP 142/71 10/22/16 11:29 Pulse Ox 92 L 10/22/16 11:29 Intake & Output 0810/22/16 10/22/16 18:59 06:59 18:59 Intake Total 280 1299.551 80.677 Balance 280 1299.551 80.677 Weight 62.5 kg Intake: IV 160 800 0.9 NS @ 20ml/hr 160 320 heparin 480 Intake, IV Titration 499.551 80.677 Amount Heparin Sodium,Porcine/ 499.551 80.677 D5w Pmx 25,000 unit In Dextrose/Water 1 500ml. bag @ 12 UNITS/KG/HR 17. 97 mls/hr IV .Q24H [facility] Rx #:[id number] Oral 120 Other: Voiding Method Toilet Toilet Toilet Urinal Urinal Urinal # Voids 1 - Exam PHYSICAL EXAM: VITAL SIGNS: As above GENERAL: [Sitting up in bed, drowsy] HEENT: [Pupils equal conjunctiva normal, oral mucosa moist.] NECK: [Supple, no JVD, no carotid bruits,no trachea deviation] RESPIRATORY EFFORT:[ Increased] LUNGS: [Bilateral bases diminished, rhonchorous more on the right side ,no crackles, no wheezes, CARDIOVASCULAR[ regular S1 S2, bradycardic, no murmurs, no edema. GI: [Abdomen soft, nontender, mildly distended, positive bowel sounds.] PSYCH: [Alert and oriented -2-3, mood and affect normal.] NEURO: No focal deficits. - Labs CBC & Chem 7: 10/22/16 05:28 10/21/16 05:39 Labs: Abnormal Lab Results - Last 24 Hours (Table) 10/22/16 10/22/16 10/22/16 Range/Units 05:28 05:28 05:28 WBC 12.7 H (3.8-10.6) k/uL RBC 3.98 L (4.30-5.90) m/uL Hgb 12.5 L (13.0-17.5) gm/dL Hct 38.0 L (39.0-53.0) % Plt Count 104 L (150-450) k/uL Neutrophils # 12.0 H (1.3-7.7) k/uL Lymphocytes # 0.2 L (1.0-4.8) k/uL PT 14.6 H (9.0-12.0) sec INR 1.5 H (<1.2) APTT 46.8 H (22.0-30.0) sec 10/22/16 Range/Units 10:08 WBC (3.8-10.6) k/uL RBC (4.30-5.90) m/uL Hgb (13.0-17.5) gm/dL Hct (39.0-53.0) % Plt Count (150-450) k/uL Neutrophils # (1.3-7.7) k/uL Lymphocytes # (1.0-4.8) k/uL PT (9.0-12.0) sec INR (<1.2) APTT 46.5 H (22.0-30.0) sec Assessment and Plan Plan: 1. [ Chest pain, shortness of breath, acute pulmonary embolism]. 2. [ New-onset Atrial fibrillation with rapid ventricular rate, currently sinus bradycardia]. 3. [ Recently diagnosed poorly differentiated adenocarcinoma of right lung with brain and bone metastasis status post radiation]. 4. Pericardial effusion with tamponade, possibly malignant, status post pericardiocentesis, cytology reporting positive for metastatic poorly differentiated adenocarcinoma of the lung. 5. [ Elevated LFTs]. 6. [ Leukocytosis, possibly reactive]. 7. Acute non-STEMI Plan: Continue on current medication regime ,monitoring and symptomatic treatment. Hospice consulted for informational meeting.Case management to meet with today regarding discharge planning; potential hospice house, or [facility]. Discharge planning in progress. Prognosis guarded. The impression and plan of care has been dictated as directed. : I performed a H&P examination of this patient and discussed the same with the dictator. I agree with the dictator's note. Any additional findings/opinions/ etc. will be noted.
[2016-10-22] MEDS ORDERED: FUROSEMIDE 10 MG/ML 4 ML VIAL IV STA ×2 (14:40→18:09)
[2016-10-22] MEDS: IPRATROPIUM-ALBUTEROL 3 ML NEB INHALATION PRN (17:38)
[2016-10-22] MEDS ORDERED: WARFARIN 5 MG TAB PO ONE (18:00)
[2016-10-23] MEDS ORDERED: FUROSEMIDE 10 MG/ML 10 ML VIAL IV STA (00:24)
[2016-10-23] MEDS ORDERED: SCOPOLAMINE 1.5MG/72HR PATCH TRANSDERM SCH (00:30)
[2016-10-23] MEDS: DILTIAZEM 125 MG in SODIUM CHLORIDE 0.9% 100 ML IV SCH ×2 (01:45→10:19)
[2016-10-23] MEDS: HYDROmorphone 1 MG/ML 1 ML SYRINGE IVP PRN ×5 (01:46→14:04)
[2016-10-23] MEDS: PANTOPRAZOLE 40 MG TABLET PO SCH (06:41)
[2016-10-23] MEDS: ASPIRIN 325 MG TAB PO SCH (07:59)
[2016-10-23] MEDS: HYDROCHLOROTHIAZIDE 25 MG TAB PO SCH (07:59)
[2016-10-23] MEDS: DEXAMETHASONE 4 MG TAB PO SCH ×2 (07:59→20:34)
[2016-10-23] MEDS: DOCUSATE 100 MG CAP PO SCH ×2 (07:59→20:34)
[2016-10-23] MEDS: ALPRAZolam 0.25 MG TAB PO SCH ×2 (07:59→20:34)
[2016-10-23] MEDS: hydrALAZINE HCL 25 MG TAB PO SCH ×3 (07:59→20:34)
[2016-10-23] MEDS: FUROSEMIDE 10 MG/ML 4 ML VIAL IV SCH (08:02)
[2016-10-23] MEDS: LORazepam 2 MG/ML SYRINGE IV PRN ×2 (10:18→15:24)
[2016-10-23] MEDS: HEPARIN SODIUM,PORCINE/D5W PMX 25,000 UNIT in DEXTROSE/WATER 1 500ML.BAG IV SCH (10:19)
--- NOTE | 2016-10-23 10:53 | P.PN ---
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 The patient presented to the hospital with an acute onset left sided pleuritic chest pain. No hemoptysis. No pleurisy. No swelling lower extremities. No prior history of any DVTs or pulmonary embolism. No angina. No syncope. CT angios the chest was done and showed positive pulmonary embolism. There was a mild burden on the right involving the right lower lobe and segmental and a couple of subsegmental branches in the left lung base. In addition, there was an enlarging right upper lobe mass measuring 7.3 cm in size in addition to enlarging satellite nodules and lymphadenopathy. Nodularity measuring 1.9 cm in the right adrenal gland. Pericardial effusion is also seen and an echocardiogram is to follow to make sure there is no evidence of temponad. He states that his been in good condition. He had been eating well. No nausea. No vomiting. No emesis. No syncope. No cardiac arrhythmias On 10/15/2016 the patient is essentially the same. He denies having any chest pain. Still on IV heparin. Troponin peaked at 11.0. He also went into atrial fibrillation and he was started on Cardizem drip for rate control. Echocardiogram was done regarding the possibility of cardiac tamponade. Results are still pending for now. Meanwhile, ultrasound of the abdomen was also done and there is nonspecific mild gallbladder wall thickening. No ascites. No findings to suggest acute cholecystitis. There is a small right- sided pleural effusion. Doppler of the lower extremities also negative. On 10/16/2016 the patient is being seen in follow-up. The patient is doing well. No specific complaints. Able to sit up on a chair. Echocardiogram was completed and that is no evidence of any cardiac component. The patient however has a large pericardial effusion which could be potentially malignant. Still on IV heparin. Amiodarone his oral 200 mg by mouth twice a day. Patient is also on metoprolol for rate control. Tolerating diet. Will be considered for oral anticoagulation with the next 24 hours. No hemoptysis. No pleurisy. Reevaluated on 10/17/2016, overall the patient is doing well, had few episodes of blood-tinged sputum/hemoptysis. Clinically patient is denying any shortness of breath, no chest pain, no fever, no chills, remains on multiple meds as listed, remains on heparin. Labs were reviewed, PTT is therapeutic. PTT is 52 electrolytes were reviewed BUN is 64 creatinine is 1.70 WBC count is 14.9 hemoglobin is 11.2. Troponin is 11. On 10/18/2016, patient underwent ultrasound-guided pericardiocentesis for pericardial effusion with tamponade, 1400 ml of bloody effusion drained. Patient felt better since. Cytology on the pericardial effusion is pending, it is malignant unless proven otherwise. Labs were reviewed, PTT is 39.2. Renal profile is improving and his sodium is 127. Reevaluated today on 10/19/2016, seems to be doing better, no further episodes of hemoptysis, patient has some shortness of breath, more pericardial fluid was drained today by thoracic surgery, cytology is pending. Patient remains on anti -coagulation therapy, all labs were reviewed. Oncology staff is suggesting that the patient goes home on Coumadin. Reevaluated today on 10/20/2016, patient is about the same. 20 mL of pericardial effusion drained today by thoracic surgery staff. Cytology on the pericardial fluid is pending. Chest x-ray today continues to show right midlung mass, and possible infiltrate or atelectasis in the right lower lobe. Patient was reevaluated today on 10/21/2016, patient is about the same, no changes over the last few days. His cytology from the pericardial fluid came back positive for lung cancer. Hence this is clearly a metastatic process related to his underlying bronchogenic carcinoma. Patient will be seen by oncology, and will rely on the further recommendations regarding treatment in the future or possibly comfort care measures. CBC was reviewed is relatively normal. Basic metabolic profile is relatively unremarkable. Clinically the patient denies any chest pain, he has chronic shortness of breath, no fever, no chills, and no further episodes of hemoptysis. Reevaluated today on 10/22/2016, patient was seen yesterday by oncology, and it was felt that the patient may be considered for upfront checkpoint inhibitor immunotherapy. Paperwork has been submitted. The main goal is hopefully getting the patient discharged home if possible. CBC was reviewed seems to be relatively normal. PTT is 46.5. Patient is already on Coumadin. This was restarted today. Reevaluated today on 10/23/2016, patient is basically about the same, he is on Coumadin, INR is 1.5 today PTT is 63.5. Rest of the labs were noted to be unremarkable. Patient remains therapeutic on heparin for his pulmonary embolism. At any rate patient will likely need to be transferred to a rehab facility and eventually needs to follow up with oncology on outpatient basis. Objective - Vital Signs Vital signs: Vital Signs Temp 98.8 F 10/23/16 08:00 Pulse 140 H 10/23/16 08:00 Resp 24 10/23/16 08:00 BP 117/70 10/23/16 08:00 Pulse Ox 92 L 10/23/16 08:22 Intake & Output 10/22/16 10/23/16 10/23/16 18:59 06:59 18:59 Intake Total 280.677 811.323 174.25 Output Total 800 Balance 280.677 11.323 174.25 Intake: IV 200 392 10 0.9 NS @ 20ml/hr 200 140 Invasive Line 6 10 heparin 252 Intake, IV Titration 80.677 419.323 64.25 Amount Diltiazem 125 mg In 64.25 Sodium Chloride 0.9% 100 ml @ 7.5 MG/HR 7.5 mls/hr IV .[id number] [facility] Rx#: [id number] Heparin Sodium,Porcine/ 80.677 419.323 D5w Pmx 25,000 unit In Dextrose/Water 1 500ml. bag @ 12 UNITS/KG/HR 17. 97 mls/hr IV .Q24H [facility] Rx #:[id number] Oral 100 Output: Urine 800 Other: Voiding Method Toilet Indwelling Catheter Indwelling Catheter Urinal # Voids 1 1 - Exam Physical Exam: Revealed a 55-year-old, frail and cachectic, chronically ill- looking. HEENT:[Neck is supple.] [No neck masses.] [No thyromegaly.] [No JVD.] Chest: [Rhonchi noted bilaterally more so on the right side..] Cardiac Exam: [Normal S1 and S2, no S3 gallop, no murmur.] Abdomen: [Soft, nontender, no megaly, no rebound, no guarding, normal bowel sounds.] Extremities: [No clubbing, no edema, no cyanosis.] Neurological Exam: [No focal neurologic deficit.] - Labs CBC & Chem 7: 10/22/16 05:28 10/21/16 05:39 Labs: Abnormal Lab Results - Last 24 Hours (Table) 10/22/16 Range/Units 16:46 APTT 63.5 H (22.0-30.0) sec Assessment and Plan Plan: 1 acute pulmonary embolism with secondary shortness of breath and pleuritic chest pain, currently on IV heparin. Patient has metastatic lung cancer and the patient is currently being treated with brain radiation and systemic chemotherapy is to follow. 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 The patient also has metastases to the bone and probably adrenal glands. A malignant pericardial effusion is also suspected. Completed brain radiation 3 ASSOCIATE PROFESSOR OF SURGERY metastases, completed radiation 4 pericardial effusion with tamponade requiring pericardiocentesis on 2016. 5 thrombocytopenia 6 acute non-STEMI 7 new-onset atrial fibrillation currently oral amiodarone 200 mg by mouth twice a day metoprolol 12.5 mg twice a day. Echocardiogram was noted. 8 intermittent episodes of hemoptysis, could be related to his underlying lung cancer could also be related to his underlying pulmonary embolism. Continue to monitor until coagulation therapy, I believe the benefits of the treatment outweigh the risks at this point. However if his condition gets any worse, may have to consider a filter placement. Recommendation: Continue present supportive care measures, plan on discharge planning early next week on Coumadin. We will hopefully get his level therapeutic. INR today is 1.5. Time with Patient: Less than 30
[2016-10-23 15:16] VITALS: BP 109/55; TEMP 98.6
[2016-10-23] MEDS ORDERED: LORazepam 2 MG/ML SYRINGE IV PRN (15:48)
[2016-10-23] MEDS ORDERED: MORPHINE SULFATE (100 MG/2 ML) 100 MG in SODIUM CHLORIDE 0.9% 100 ML IV SCH (16:00)
--- NOTE | 2016-10-23 16:19 | P.PN ---
Subjective Acute pulmonary embolism, metastatic lung cancer 55-year-old male patient with a known history of metastatic adenocarcinoma of the lung with CONTINUING EDUCATION SPECIALIST involvement, was about to complete brain radiation therapy and has not been initiated on systemic chemotherapy. The patient presented to the hospital with an acute onset left sided pleuritic chest pain. No hemoptysis. No pleurisy. No swelling lower extremities. No prior history of any DVTs or pulmonary embolism. No angina. No syncope. CT angios the chest was done and showed positive pulmonary embolism. Patient has metastatic adenocarcinoma with CONTINUING EDUCATION SPECIALIST involvement. Patient has been having hypotension over the last 24 hours was noted to be in atrial fibrillation with rapid ventricular rate. Patient's heart rate is over 150 After a family meeting today patient family decided to keep the patient comfortable Patient is currently on a nonrebreather is nonresponsive. Patient apparently appears anxious intermittently and is Comfortable with IV Ativan Physical exam Gen. appearance lethargic Lungs diminished breath sounds Heart slightly tachycardic no murmurs appreciable Abdomen is distended Neuro is deferred Lower extremities no edema noted. Assessment and Plan Plan: 1 acute pulmonary embolism 2 metastatic adenocarcinoma of the lung with CONTINUING EDUCATION SPECIALIST involvement. 3 CONTINUING EDUCATION SPECIALIST metastases, completed radiation 4 pericardial effusion with tamponade requiring pericardiocentesis on 2016. 5 thrombocytopenia 6 acute non-STEMI 7 new-onset atrial fibrillation currently oral amiodarone 200 mg by mouth twice a day metoprolol 12.5 mg twice a day. Echocardiogram was noted. Plan Comfort care measures will be ensured Did have a family meeting. Patient will be kept on the sixth floor continue with IV morphine and Ativan Scopolamine patch Patient is already hypotensive discontinue all medical therapies including IV heparin and Cardizem drip Objective - Vital Signs Vital signs: Vital Signs Temp 98.6 F 10/23/16 15:15 Pulse 138 H 10/23/16 15:15 Resp 26 H 10/23/16 15:15 BP 109/55 10/23/16 15:15 Pulse Ox 88 L 10/23/16 15:15 Intake & Output 10/22/16 10/23/16 10/23/16 18:59 06:59 18:59 Intake Total 280.677 811.323 364.25 Output Total 800 900 Balance 280.677 11.323 -535.75 Intake: IV 200 392 20 0.9 NS @ 20ml/hr 200 140 Invasive Line 6 20 heparin 252 Intake, IV Titration 80.677 419.323 64.25 Amount Diltiazem 125 mg In 64.25 Sodium Chloride 0.9% 100 ml @ 7.5 MG/HR 7.5 mls/hr IV .[id number] [facility] Rx#: [id number] Heparin Sodium,Porcine/ 80.677 419.323 D5w Pmx 25,000 unit In Dextrose/Water 1 500ml. bag @ 12 UNITS/KG/HR 17. 97 mls/hr IV .Q24H [facility] Rx #:[id number] Oral 280 Output: Urine 800 900 Other: Voiding Method Toilet Indwelling Catheter Indwelling Catheter Urinal # Voids 1 1 - Labs CBC & Chem 7: 10/22/16 05:28 10/21/16 05:39 Labs: Abnormal Lab Results - Last 24 Hours (Table) 10/22/16 Range/Units 16:46 APTT 63.5 H (22.0-30.0) sec
[2016-10-23 18:57] VITALS: PULSE 72
[2016-10-24] MEDS: PANTOPRAZOLE 40 MG TABLET PO SCH (06:09)
[2016-10-24] MEDS ORDERED: MORPHINE SULFATE 4 MG/ML SYRINGE IVP STA (11:36)
--- NOTE | 2016-10-24 11:40 | P.PN ---
Subjective Progress note dated 10/24/2016 55-year-old male with a recent diagnosis of metastatic adenocarcinoma the lung. He had DIRECTOR PHARMACY SERVICES involvement and also had involvement of his pericardium with a malignant pericardial effusion. The patient underwent a pericardial window. This was done on October 18. The patient also has a history of DIRECTOR PHARMACY SERVICES metastasis thrombocytopenia acute non-ST segment elevation myocardial infarction pulmonary embolism, new onset atrial fibrillation with RVR and hemoptysis. He was seen by me in the office recently. That time he was completely asymptomatic. Everything seemed to come on suddenly. Unfortunately now, he's been made comfort measures. He is currently just on some supplemental oxygen and a morphine drip. I think it's very appropriate given his rapid demise. I did speak to the family. Objective - Vital Signs Vital signs: Vital Signs Temp 98.6 F 10/23/16 15:15 Pulse 72 10/23/16 18:56 Resp 20 10/23/16 18:56 BP 109/55 10/23/16 15:15 Pulse Ox 89 L 10/23/16 18:56 Intake & Output 10/23/16 10/24/16 10/24/16 18:59 06:59 18:59 Intake Total 375.55 Output Total 900 Balance -524.45 Intake: IV 20 Invasive Line 6 20 Intake, IV Titration 75.55 Amount Diltiazem 125 mg In 64.25 Sodium Chloride 0.9% 100 ml @ 7.5 MG/HR 7.5 mls/hr IV .[id number] [facility] Rx#: [id number] Morphine Sulfate (100 mg/ 11.3 2 ml) 100 mg In Sodium Chloride 0.9% 100 ml @ Titrate IV .Q0M [facility] Rx#: [id number] Oral 280 Output: Urine 900 Other: Voiding Method Indwelling Catheter - Exam No acute distress. The patient's not oriented to person place or time. HEENT examination is grossly unremarkable. Neck supple. Full range of motion. Cardiovascular examination reveals distant heart sounds. Heart rate 90. S1-S2 normal. Lungs reveal some diffuse coarse rhonchi. Breath sounds are diminished. There are equal. Abdomen soft bowel sounds are heard. Extremities are intact. No cyanosis clubbing or edema. Skin without rash. Neurologic examination cannot be performed. - Labs CBC & Chem 7: 10/22/16 05:28 10/21/16 05:39 Assessment and Plan (1) Atrial fibrillation with RVR Status: Acute (2) Brain metastases Status: Acute (3) Lung cancer, primary, with metastasis from lung to other site Status: Acute (4) Mass of right lung Status: Acute (5) Paroxysmal atrial fibrillation Status: Acute (6) Pericardial effusion Status: Acute (7) Pulmonary embolism Status: Acute (8) Hypertension Status: Acute (9) Postobstructive pneumonia Status: Acute Plan: Plan dated 10/24/2016 The patient has been made comfort measures only. He is on supplemental oxygen and some morphine. All his unnecessary medications have been discontinued. His overall prognosis is extremely poor is likely to in the near future. His family is okay with what's been going on here. Been very happy with the care provided by the nursing staff on the sixth floor. We'll continue to follow only as needed. Additional recommendations are made. Very sad situation here. Time with Patient: Less than 30
[2016-10-24 11:50] VITALS: RESP 14
[2016-10-24] MEDS: ASPIRIN 325 MG TAB PO SCH (12:03)
[2016-10-24] MEDS: DEXAMETHASONE 4 MG TAB PO SCH (12:03)
[2016-10-24] MEDS: ALPRAZolam 0.25 MG TAB PO SCH (12:03)
[2016-10-24] MEDS: DOCUSATE 100 MG CAP PO SCH (12:03)
[2016-10-24] MEDS: hydrALAZINE HCL 25 MG TAB PO SCH (12:04)
[2016-10-24] MEDS: FUROSEMIDE 10 MG/ML 4 ML VIAL IV SCH (12:04)
[2016-10-24] MEDS: HYDROCHLOROTHIAZIDE 25 MG TAB PO SCH (12:04)
--- NOTE | 2016-10-24 16:01 | P.DS ---
Providers Date of admission: 10/14/16 11:52 Attending physician: Anjel Haji Consults: 10/14/16 11:46 Consult Physician Routine Consulting Provider: Kimber Sarabia Consult Reason/Comments: afibrvr Do you want consulting provider notified?: Yes 10/14/16 14:24 Consult Physician Routine Consulting Provider: James Christensen Consult Reason/Comments: pericardial effusion Do you want consulting provider notified?: Yes Consult Physician Urgent Consulting Provider: Bennett Lee Consult Reason/Comments: known Do you want consulting provider notified?: Yes 10/14/16 16:35 Consult Physician Urgent Consulting Provider: Omar Smith Consult Reason/Comments: Patient known to him-current lung cancer Do you want consulting provider notified?: Yes Primary care physician: Stated None Hospital Course: Acute pulmonary embolism, metastatic lung cancer 55-year-old male patient with a known history of metastatic adenocarcinoma of the lung with COMMUNICATIONS EDITOR involvement, was about to complete brain radiation therapy and has not been initiated on systemic chemotherapy. The patient presented to the hospital with an acute onset left sided pleuritic chest pain. No hemoptysis. No pleurisy. No swelling lower extremities. No prior history of any DVTs or pulmonary embolism. No angina. No syncope. CT angios the chest was done and showed positive pulmonary embolism. Patient has metastatic adenocarcinoma with COMMUNICATIONS EDITOR involvement. Patient has been having hypotension over the last 24 hours was noted to be in atrial fibrillation with rapid ventricular rate. Patient's heart rate is over 150 After a family meeting today patient family decided to keep the patient comfortable Patient is currently on a nonrebreather is nonresponsive. Patient apparently appears anxious intermittently and is Comfortable with IV Ativan Physical exam Gen. appearance lethargic Lungs diminished breath sounds Heart slightly tachycardic no murmurs appreciable Abdomen is distended Neuro is deferred Lower extremities no edema noted. Assessment and Plan Plan: 1 acute pulmonary embolism 2 metastatic adenocarcinoma of the lung with COMMUNICATIONS EDITOR involvement. 3 COMMUNICATIONS EDITOR metastases, completed radiation 4 pericardial effusion with tamponade requiring pericardiocentesis on 2016. 5 thrombocytopenia 6 acute non-STEMI 7 new-onset atrial fibrillation currently oral amiodarone 200 mg by mouth twice a day metoprolol 12.5 mg twice a day. Echocardiogram was noted. Plan Patient family was at bedside Patient without any discomfort Cause of metastatic adenocarcinoma an acute pulmonary embolism. Patient Condition at Discharge: Serious Plan - Discharge Summary New Discharge Prescriptions: No Action Hydrochlorothiazide [Hydrodiuril] 25 mg PO DAILY Omeprazole [PriLOSEC] 20 mg PO DAILY Dexamethasone [Hexadrol] 4 mg PO TID ALPRAZolam [Xanax] 0.25 mg PO BID Albuterol Inhaler [Ventolin Hfa Inhaler] 2 puff PO Q4H PRN PRN Reason: Shortness Of Breath Discharge Medication List Hydrochlorothiazide [Hydrodiuril] 25 mg PO DAILY 09/14/16 [History] ALPRAZolam [Xanax] 0.25 mg PO BID 10/14/16 [History] Albuterol Inhaler [Ventolin Hfa Inhaler] 2 puff PO Q4H PRN 10/14/16 [History] Dexamethasone [Hexadrol] 4 mg PO TID 10/14/16 [History] Omeprazole [PriLOSEC] 20 mg PO DAILY 10/14/16 [History] Follow up Appointment(s)/Referral(s): None,Stated [Primary Care Provider] - 1-2 days Discharge Disposition: - Preliminary Cause of Preliminary Cause of : Advance cancer.
== END 2016-10-24 15:00 | disposition expired | DRG 175 ==
LOC: EC 09:54 → 6SEL 11:52
PROVIDERS: ADMIT Hospitalist; ATTEND Hospitalist
PROC: 0W9D30Z Drainage of Pericardial Cavity with Drainage Device, Percutaneous Approach (ICD-10-PCS; principal; 2016-10-18)
PROC: 0WPDX0Z Removal of Drainage Device from Pericardial Cavity, External Approach (ICD-10-PCS; 2016-10-22)
DX: I26.99 Other pulmonary embolism without acute cor pulmonale (principal); I21.4 Non-ST elevation (NSTEMI) myocardial infarction; I31.4 Cardiac tamponade; I47.2 Ventricular tachycardia; J18.9 Pneumonia, unspecified organism; J91.0 Malignant pleural effusion; C79.31 Secondary malignant neoplasm of brain; C79.51 Secondary malignant neoplasm of bone; D68.69 Other thrombophilia; C79.89 Secondary malignant neoplasm of other specified sites; R04.2 Hemoptysis; C34.11 Malignant neoplasm of upper lobe, right bronchus or lung; D69.6 Thrombocytopenia, unspecified; I95.9 Hypotension, unspecified; I48.0 Paroxysmal atrial fibrillation; Z51.5 Encounter for palliative care; Z66 Do not resuscitate; I10 Essential (primary) hypertension; D63.8 Anemia in other chronic diseases classified elsewhere; M19.91 Primary osteoarthritis, unspecified site; Z79.899 Other long term (current) drug therapy; Z87.891 Personal history of nicotine dependence; Z87.01 Personal history of pneumonia (recurrent); Z92.3 Personal history of irradiation; Z92.21 Personal history of antineoplastic chemotherapy
CPT/HCPCS: 36415; 71010; 71020; 71275; 76700; 80048; 80053; 81001; 82550; 82553; 83735; 83880; 84100; 84443; 84484; 85025; 85379; 85610; 85730; 88108; 88305; 88341; 88342; 93005; 93308; 93970; 94640; 94760; 96365; 96366; 96367; 96375; 96376; 99291